=== PATIENT | female | born 1940 | race Caucasian/White ===

== ENCOUNTER 2019-03-01 11:36 | Emergency (ER) | payer MEDICARE, OTHER ==
[~2019-03-01] VITALS: Ht 162.6 cm; Wt 97.5 kg
[~2019-03-01 11:36] MED LIST: ALBU90OI INH; AMLO5 PO; AREDS; ASPI81CH PO; CYAN100 PO; Cleocin HCl150 MG PO; ESOM20; FISH1000 PO; FLUC200 PO; FLUT110OIA INH; Flomax0.4 MG PO; HYDACE5 PO; HYDR1TAB94 PO; LEVFLO500 PO; LISI5 PO; LUTEIN20 MG PO; METO50ER PO; METPRE4DP PO; MULVIT; OXYB5 PO; RANI150; Sudogest30 MG PO; TOCO400; TRAM50 PO; TRIHYD253A PO; Ventolin/Prove6.7 GM INH
[2019-03-01] MEDS ORDERED: Monodox100 MG PO (12:13)
[2019-03-01] MEDS ORDERED: Flonase 0.05% N16 GM (12:13)
== END 2019-03-01 12:19 | disposition home or self-care (01) ==
LOC: ER 11:36
DX: J32.9 Chronic sinusitis, unspecified (principal); Z88.0 Allergy status to penicillin; Z88.8 Allergy status to other drugs, medicaments and biological substances; Z91.048 Other nonmedicinal substance allergy status; Z79.82 Long term (current) use of aspirin; Z79.899 Other long term (current) drug therapy; J45.909 Unspecified asthma, uncomplicated

== ENCOUNTER 2019-07-02 12:36 | Emergency (ER) | payer MEDICARE, OTHER ==
[~2019-07-02] VITALS: Ht 162.6 cm; Wt 99.8 kg
[~2019-07-02 12:36] MED LIST changes: +CIPR500 PO; +Flonase 0.05% N16 GM; +Monodox100 MG PO; +Zofran4 MG PO
[2019-07-02 13:07] LABS: BASOPHILS ABSOLUTE AUTO 0.08 K/mm3 (0.00-0.23); BASOPHILS PERCENT AUTO 1 % (0-2); EOSINOPHILS ABSOLUTE AUTO 0.19 K/mm3 (0.00-0.68); EOSINOPHILS PERCENT AUTO 2 % (0-6); Hematocrit 44.3 % (33.0-51.0); Hemoglobin 14.2 g/dL (11.5-16.0); IMMATURE GRAN ABSOLUTE AUTO 0.05 K/mm3 (0.00-0.10); IMMATURE GRAN PERCENT AUTO 1 % (0-1); LYMPHOCYTES ABSOLUTE AUTO 3.48 K/mm3 (0.84-5.20); LYMPHOCYTES PERCENT AUTO 35 % (21-46); MONOCYTES ABSOLUTE AUTO 0.93 K/mm3 (0.16-1.47); MONOCYTES PERCENT AUTO 10 % (4-13); Mean Corpuscular HGB 30.3 pg (26.0-34.0); Mean Corpuscular HGB Conc 32.1 g/dL (31.5-36.5); Mean Corpuscular Volume 95 fL (80-100); Mean Platelet Volume 10.9 fL (9.1-12.4); NEUTROPHILS PERCENT AUTO 52 % (41-73); Platelet Count 257 K/mm3 (150-400); RDW Coefficient Variation 13.9 % (11.7-14.2); RDW Standard Deviation 48.2 fL (35.1-46.3); Red Blood Cell Count 4.68 M/mm3 (3.80-5.20); White Blood Cell Count 9.83 K/mm3 (4.00-11.30)
[2019-07-02 13:27] LABS: Alanine Aminotransfer (ALT/SGP 20 U/L (12-78); Albumin, Blood 3.3 g/dL (3.4-5.0); Albumin/Globulin Ratio 0.8 (0.8-1.8); Alk Phos 124 U/L (50-136); Anion Gap 4 mmol/L (6-16); Aspartate Aminotrans (AST/SGOT 14 U/L (12-37); Bilirubin, Total 0.3 mg/dL (0.1-1.0); Blood Urea Nitrogen 19 mg/dL (8-24); Bun/Creatinine Ratio 26.9 (12.0-20.0); CO2, Blood 27 mmol/L (21-32); Calcium, Blood 9.3 mg/dL (8.5-10.1); Chloride, Blood 108 mmol/L (98-108); Creatinine, Blood 0.71 mg/dL (0.40-1.00); Free Thyroxine 0.95 ng/dL (0.70-1.60); Globulin, Blood 4.2 g/dL (2.2-4.0); Glomerular Filtration Rate >60 (60-); Glucose, Blood 99 mg/dL (70-99); Potassium, Blood 3.9 mmol/L (3.5-5.5); Sodium, Blood 139 mmol/L (136-145); Total Protein, Blood 7.5 g/dL (6.4-8.2); Troponin I <0.015 ng/mL (0.000-0.040)
[2019-07-02 13:39] LABS: Source, Urine Clean Catch
[2019-07-02 13:54] LABS: Bilirubin, Urine Neg (Neg); Blood, Urine 1+ (Neg); Glucose Qualitative, Urine Neg (Neg); Ketones, Urine Neg (Neg); Leukocyte Esterase, Urine 3+ (Neg); Nitrite, Urine Neg (Neg); Protein, Urine 1+ (Neg); Urobilinogen, Urine 1+ (Normal)
[2019-07-02 14:06] LABS: Appearance, Urine Hazy (Clear); Color, Urine Yellow (P-Yellow)
[2019-07-02] MEDS ORDERED: ASCO500 PO (14:51)
[2019-07-02] MEDS ORDERED: TOCO1000 PO (14:51)
[2019-07-02] MEDS ORDERED: THERA1 EACH PO (14:52)
[2019-07-02] MEDS ORDERED: CALCIUM + D SO1 EACH PO (14:52)
[2019-07-02] MEDS ORDERED: LOSA25 PO (14:53)
[2019-07-02] MEDS ORDERED: Dyazide 37.5-21 EACH PO (14:53)
[2019-07-02] MEDS ORDERED: Vitamin B Comple1 EA PO (14:54)
[2019-07-02] MEDS ORDERED: BIOTIN5000 MCG PO (14:54)
[2019-07-02] MEDS ORDERED: TRAM50 PO (14:55)
[2019-07-02] MEDS ORDERED: OMEP20ER PO (14:55)
[2019-07-02 15:05] LABS: Red Blood Cells, Urine 0-2 /hpf (0-2); Squamous Epithelial Cells Many /hpf (Few)
[2019-07-02 15:06] LABS: Bacteria Many /hpf
== END 2019-07-02 17:03 | disposition home or self-care (01) ==
LOC: ER 12:36
PROVIDERS: Physician Assistant
DX: R00.1 Bradycardia, unspecified (principal); Z88.0 Allergy status to penicillin
CPT/HCPCS: 36415; 71046; 80053; 81001; 84439; 84443; 84484; 85025; 87086; 93005; 93010; 99284-25

== ENCOUNTER 2019-08-13 10:16 | Day surgery (SDC) | payer MEDICARE, OTHER ==
[~2019-08-13] VITALS: Ht 165.1 cm; Wt 101.0 kg
[~2019-08-13 10:16] MED LIST changes: +ASCO500 PO; +BIOTIN5000 MCG PO; +CALCIUM + D SO1 EACH PO; +Dyazide 37.5-21 EACH PO; +LOSA25 PO; +OMEP20ER PO; +THERA1 EACH PO; +TOCO1000 PO; +Vitamin B Comple1 EA PO
--- NOTE | 2019-08-13 18:24 | NUR ---
DAY SHIFT SUMMARY-Arrived to floor from [facility] s/p Pacemaker placement around 1615. Postop vital signs performed. C/O "mild" ache to L shoulder, but tolerable. Shoulder is in a sling, site is covered with dressing D&I. Patient oriented to room, call light, and phone. Family at bedside. 0-Finished dinner and up to BRP with 1 person assist. Family has gone home. Patient denies any increase in pain, states she's "right handed" and is able to use that hand to hold onto RN for assistance. Vital signs have remained stable.
--- NOTE | 2019-08-13 23:42 | NUR ---
ASSUMED CARE OF PATIENT AT APPROXIMATELY 1900 FROM LES [facility] RN. PATIENT ALERT AND ORIENTED X4; LEFT ARM IN SLING; S/P PACEMAKER; SURGICAL DRESSING HAS SMALL AMOUT OF DRAINAGE NOTED. PATIENT REPORTS SITE IS TENDER; ICE APPLIED AND MEDICATED PER EMAR FOR PAIN. DR. SHANKS CALLED FOR AN [facility] AFTER 2199. PATIENT CALLED STAFF TO ROOM TO REPORT HEARTBURN AND PAIN; PATIENT REPORTS SHE NORMALLY TAKES PRILOSEC AND TUMS OR ROLAIDS DAILY AFTER HAVING 6X HERNIA SUGERIES. DR. SHANKS CALLED AT 2226; ORDERS RECIEVED. 100% PACED ON TELE; OXYGEN SATURATION ABOVE 90% ON ROOM AIR. PATIENT DENIES NUMBNESS, TINGLING, DIZZINESS AND NAUSEA. PIV S/L. PATIENT CURRENTLY RESTING IN BED; CALL LIGHT IN REACH; BED IN LOWEST POSISTION; BED ALARM ON; WILL CONTINUE TO MONITOR AND ASSESS UNTIL END OF SHIFT.
--- NOTE | 2019-08-14 11:20 | NUR ---
PT LAYING IN BED AWAKE A/OX3, PLEASANT AND COOPERATIVE [facility] C[facility], FOLLOWS COMMANDS WELL, HAS ARM SLING IN PLACE, UNDERSTANDS WHY SHE NEEDS TO WEAR IT, HAS ICE PACK IN PLACE, THIS WAS CHANGED FOR A FRESH ICE PACK, SHE REPORTS IT HELPS, LUNGS ARE CLEAR A BIT DIM IN THE BASES, RESP EVEN AND UNLABORED, IS ON R/A, HRR, TELE IN PLACE RUNNING 100% PACED RHYTHM, SHE STATES SHE FEELS BETTER, WAS VERY WEAK AND SOB, THAT IS RESOLVED, NO EDEMA NOTED, PPP+2, CAP REFILL <3SEC, VS STABLE, AFEBRILE, IV SITE IS CLEAR AND PATENT, TO LEFT AC, BTX4, ABD FLAT SOFT NONTENDER, VOIDS WITHOUT DIFF, SKIN C/W/D EXCEPT FOR SURGICAL WOUND TO JOURDAN GARCIA PERLA, CALL LIGHT IN REACH.
--- NOTE | 2019-08-14 11:55 | NUR ---
PT HAS BEEN DISCHARGED TO HOME, SHE HAS HER ARM SLING IN PLACE, WAS GIVEN AN EXTRA ICE BAG. WENT OVER INSTRUCTIONS AND FOLLOW UP APPT. NO MEDICATION CHANGES. SHE VERBALIZES UNDERSTANDING OF INSTRUCTIONS, SHE HAS DR. GUTIERREZ PRINTED INSTRUCTIONS FOR PACER CARE. IV REMOVED INTACT. LEFT VIA WHEELCHAIR WITH STRANNER AND FAMILY IN ATTENDENCE WITH ALL HER BELONGINGS.
== END 2019-08-14 10:55 | disposition home or self-care (01) ==
LOC: MHTC 10:16 → PCU 16:48 → MHTC 08-14 10:55
DX: I49.5 Sick sinus syndrome (principal); I11.9 Hypertensive heart disease without heart failure; E66.01 Morbid (severe) obesity due to excess calories; E78.5 Hyperlipidemia, unspecified; J45.909 Unspecified asthma, uncomplicated; Z79.82 Long term (current) use of aspirin; Z79.899 Other long term (current) drug therapy; Z88.1 Allergy status to other antibiotic agents; Z88.8 Allergy status to other drugs, medicaments and biological substances
CPT/HCPCS: 33208; 71045; 71046; 96374; 99152; 99153; A9270; A9270-GY; C1785; C1898; G0378; J1644; J2250; J3010; J3370; J7040; J7050

== ENCOUNTER → 2020-12-14 | Outpatient (CLI) | payer MEDICARE, OTHER ==
[~2020-12-14] MED LIST changes: +DYAZIDE 37.5-21 EACH PO; +Doxycycline Mo100 M1 PO; +FURO40 PO; +FUROSEMIDE40 MG PO; +GUAI600T33 PO; +KLOR-CON 1010 ME1 PO; +LEVAQUIN750 MG PO; +METFORMIN HCL500 M2 PO; +MULVITA PO; +NITR100CA PO; +POTA10T PO; -THERA1 EACH PO; +VISBIOME 112.51 EACH PO; +WARF3 PO; +WARF6 PO; +XARELTO20 M1 PO
== END | disposition home or self-care (01) ==
LOC: LAB 16:31 → LAB SHORT 16:31
DX: D48.5 Neoplasm of uncertain behavior of skin (principal)
CPT/HCPCS: 88305

== ENCOUNTER 2021-02-09 08:01 | Inpatient (IN) | payer MEDICARE, OTHER ==
[~2021-02-09] VITALS: Ht 162.6 cm; Wt 95.1 kg
[~2021-02-09 08:01] MED LIST changes: -DYAZIDE 37.5-21 EACH PO; -Doxycycline Mo100 M1 PO; -FURO40 PO; -FUROSEMIDE40 MG PO; -GUAI600T33 PO; -KLOR-CON 1010 ME1 PO; -LEVAQUIN750 MG PO; -METFORMIN HCL500 M2 PO; -NITR100CA PO; -POTA10T PO; -VISBIOME 112.51 EACH PO; -WARF3 PO; -WARF6 PO; -XARELTO20 M1 PO
[2021-02-09] MEDS ORDERED: Doxycycline Mo100 M1 PO (08:24)
[2021-02-09 09:20] LABS: BASOPHILS ABSOLUTE AUTO 0.01 K/mm3 (0.00-0.23); BASOPHILS PERCENT AUTO 0 % (0-2); EOSINOPHILS PERCENT AUTO 0 % (0-6); Hematocrit 47.3 % (33.0-51.0); Hemoglobin 15.2 g/dL (11.5-16.0); IMMATURE GRAN ABSOLUTE AUTO 0.04 K/mm3 (0.00-0.10); IMMATURE GRAN PERCENT AUTO 1 % (0-1); LYMPHOCYTES PERCENT AUTO 16 % (21-46); MONOCYTES ABSOLUTE AUTO 0.36 K/mm3 (0.16-1.47); MONOCYTES PERCENT AUTO 7 % (4-13); Mean Corpuscular HGB 31.5 pg (26.0-34.0); Mean Corpuscular HGB Conc 32.1 g/dL (31.5-36.5); Mean Corpuscular Volume 98 fL (80-100); Mean Platelet Volume 10.7 fL (9.1-12.4); NEUTROPHILS ABSOLUTE AUTO 3.96 K/mm3 (1.96-9.15); NEUTROPHILS PERCENT AUTO 77 % (41-73); Platelet Count 113 K/mm3 (150-400); RDW Coefficient Variation 15.3 % (11.7-14.2); RDW Standard Deviation 55.4 fL (35.1-46.3); Red Blood Cell Count 4.83 M/mm3 (3.80-5.20); White Blood Cell Count 5.17 K/mm3 (4.00-11.30)
[2021-02-09 09:32] LABS: International Normalized Ratio 3.04; Prothrombin Time Results 30.5 Sec (9.7-11.5)
[2021-02-09 09:41] LABS: Alanine Aminotransfer (ALT/SGP 20 U/L (12-78); Albumin, Blood 2.8 g/dL (3.4-5.0); Albumin/Globulin Ratio 0.7 (0.8-1.8); Alk Phos 88 U/L (50-136); Anion Gap 11 mmol/L (6-16); Aspartate Aminotrans (AST/SGOT 36 U/L (12-37); Bilirubin, Total 0.6 mg/dL (0.1-1.0); Blood Urea Nitrogen 15 mg/dL (8-24); Bun/Creatinine Ratio 23.8 (12.0-20.0); CO2, Blood 22 mmol/L (21-32); Calcium, Blood 8.5 mg/dL (8.5-10.1); Chloride, Blood 108 mmol/L (98-108); Creatinine, Blood 0.63 mg/dL (0.40-1.00); Glomerular Filtration Rate >60 (60-); Glucose, Blood 118 mg/dL (70-99); Potassium, Blood 4.3 mmol/L (3.5-5.5); Sodium, Blood 141 mmol/L (136-145); Total Protein, Blood 6.8 g/dL (6.4-8.2); Troponin I <0.015 ng/mL (0.000-0.040)
[2021-02-09] MEDS ORDERED: METO50ER PO (11:36)
[2021-02-09] MEDS ORDERED: KLOR-CON 1010 ME1 PO (11:36)
[2021-02-09] MEDS ORDERED: FUROSEMIDE40 MG PO (11:36)
[2021-02-09] MEDS ORDERED: DYAZIDE 37.5-21 EACH PO (11:37)
[2021-02-09] MEDS ORDERED: WARF6 PO (16:59)
[2021-02-09] MEDS ORDERED: WARF3 PO (17:01)
--- NOTE | 2021-02-09 17:08 | NUR ---
SUMMARY PT ADMITTED FROM THE ER FOR COVID AND PNEUMONIA, PT ALERT AND ORIENTED, ABLE TO STAND AND TRANSFER SELF FROM RNEY TO BED WITH MIN ASSIST, PT COUGHING UP THICK HINKLE SPUTUM, PT REPORTS SOB SLIGHTLY BETTER, PT REMAINS ON 5L NC, ORIENTED PT TO ROOM AND CALL SYSTEM, PT REMAINS IN AFIB, TELE CALLED ABOUT HEART RATE 120-140S, CALL TO DR LONG, ORDERS OBTAINED, MEDS GIVEN, PT DENIES ANY CHEST PAIN OR DIZZINESS, WILL CONT TO MONITOR
[2021-02-09 22:35] LABS: Source, Urine Clean Catch
[2021-02-09 22:45] LABS: Bilirubin, Urine Neg (Neg); Blood, Urine 1+ (Neg); Glucose Qualitative, Urine Neg (Neg); Ketones, Urine 3+ (Neg); Leukocyte Esterase, Urine 1+ (Neg); Nitrite, Urine Neg (Neg); Protein, Urine 4+ (Neg); Specific Gravity, Urine 1.025 (1.003-1.022); Urobilinogen, Urine NORM (Normal)
[2021-02-09 22:53] LABS: Appearance, Urine Hazy (Clear); Color, Urine Yellow (P-Yellow)
[2021-02-09 22:54] LABS: Amorphous Light (0-Heavy); Bacteria Mod /hpf; Hyaline Casts 0-2 /lpf (0-2); Mucus Light (0-Heavy); Red Blood Cells, Urine Rare /hpf (0-2); Squamous Epithelial Cells Many /hpf (Few)
[2021-02-10 04:43] LABS: BASOPHILS ABSOLUTE AUTO 0.01 K/mm3 (0.00-0.23); BASOPHILS PERCENT AUTO 0 % (0-2); EOSINOPHILS PERCENT AUTO 0 % (0-6); Hematocrit 47.1 % (33.0-51.0); Hemoglobin 15.3 g/dL (11.5-16.0); IMMATURE GRAN ABSOLUTE AUTO 0.04 K/mm3 (0.00-0.10); IMMATURE GRAN PERCENT AUTO 1 % (0-1); LYMPHOCYTES ABSOLUTE AUTO 0.72 K/mm3 (0.84-5.20); LYMPHOCYTES PERCENT AUTO 15 % (21-46); MONOCYTES ABSOLUTE AUTO 0.38 K/mm3 (0.16-1.47); MONOCYTES PERCENT AUTO 8 % (4-13); Mean Corpuscular HGB 31.9 pg (26.0-34.0); Mean Corpuscular HGB Conc 32.5 g/dL (31.5-36.5); Mean Corpuscular Volume 98 fL (80-100); Mean Platelet Volume 10.7 fL (9.1-12.4); NEUTROPHILS ABSOLUTE AUTO 3.64 K/mm3 (1.96-9.15); NEUTROPHILS PERCENT AUTO 76 % (41-73); Platelet Count 162 K/mm3 (150-400); RDW Coefficient Variation 15.2 % (11.7-14.2); RDW Standard Deviation 55.4 fL (35.1-46.3); Red Blood Cell Count 4.79 M/mm3 (3.80-5.20); White Blood Cell Count 4.79 K/mm3 (4.00-11.30)
[2021-02-10 05:07] LABS: Anion Gap 8 mmol/L (6-16); Blood Urea Nitrogen 16 mg/dL (8-24); CO2, Blood 24 mmol/L (21-32); Calcium, Blood 8.6 mg/dL (8.5-10.1); Chloride, Blood 108 mmol/L (98-108); Creatinine, Blood 0.62 mg/dL (0.40-1.00); Glomerular Filtration Rate >60 (60-); Glucose, Blood 154 mg/dL (70-99); Magnesium, Blood 1.7 mg/dL (1.6-2.4); Sodium, Blood 140 mmol/L (136-145)
--- NOTE | 2021-02-10 08:03 | NUR ---
ELMER DIDN'T GET MUCH REST OVERNIGHT SHE WOULD LIE DOWN AND THEN FEEL NAUSEATED AND BEGIN SPITTING UP BLACKISH BROWN SPUTUM. LOOKS LIKE COFFEE GROUNDS. SHE STATES THAT SHE HAS HAD THIS PROBLEM FOR APPROXIMATELY 10 DAYS. ELMER IS UP INDEP TO THE BSC WITH NO COMPLAINTS OF PAIN OR DISCOMFORT. 02 NEEDS INCREASED FROM 5L NASAL CANNULA TO 8 LITERS HIGH FLOW OVERNIGHT.
--- NOTE | 2021-02-10 10:37 | NUR ---
PT SUSTAINING HR OF 140'S THIS AM, PRN IV LOPRESSOR WAS GIVEN PER ORDERS. PCU CHILD WELFARE ASSISTANT CALLED SHORTLY LATER STATING PT IS NOW SUSTAINING IN THE 170'S. LUKE WAS INFORMED OF PT HR WELL THE NEED TO INCREASE HER O2 FLOW TO 11 L/MIN TO MAINTAIN O2 SATURATIONS AT 90-91%. LUKE STATED HE WOULD COME UP TO GET A VISUAL OF THE PT AND MAKE CHANGES HE SEES FIT.
--- NOTE | 2021-02-10 18:58 | NUR ---
SHIFT SUMMARY PT WAS ON 8 L/MIN HIGH FLOW NC AT BEGINNING OF SHIFT. PT BEGAN SATING INTO THE 80'S, O2 WAS INCREASED TO 11 L/MIN. RT AND HOSPITALIST DISCUSSED PT OPTIONS AND DECIDED TO PLACE PT ON AIRVO. AIRVO SETTINGS WERE PLACED @ 60% FiO2 AND 45 L/MIN. BY THE END OF SHIFT PT WAS INCREASED TO FiO2 OF 75% TO KEEP O2 SATS ABOVE 90%. PT HR WAS NOT WELL CONTROLED T/O SHIFT. ROTARY SOIL STABILIZER OPERATOR REPORTS HR AVERAGING THE 130'S T/O SHIFT AND REACHING 170'S @ TIMES. IV METOPROLOL GIVEN X3 WELL DOSE OF PO METOPROLOL XL PER HOSPITALIST T/O SHIFT. PT STILL SUSTAINING, LAST DOSE GIVEN AT APPROX 1820. CHARGE NURSES AWARE OF HR, ONCOMING NURSE NOTIFIED OF HR AND INCREASE IN O2 THIS SHIFT. PT LIKELY NEEDING TO BE TRANSFERED TO A HIGHER LEVEL OF CARE. PT DENIES ANY SOB, CHEST PAIN, OR DISCOMFORT T/O SHIFT. ON CONT PULSE OX. INDEPENDENT TO BSC. PT IS CURRENTLY RESTING IN BED WITH CALL LIGHT WITHIN REACH. CALLS APPROPRIATELY.
--- NOTE | 2021-02-10 19:33 | NUR ---
Spoke with Dr. Handley regarding patient's drastically increasing 02 needs. Was on 3L cannula last evening, 8L high flow this morning and is currently on AIRVO at 75% Fi02 and 45 liters. Also, tele has sustaianed 140's to 170 all day despite 3 doses of IV Lopressor and one dose po metoprolol. Patient is to be transferred to ICU 12 STAT per new order.
--- NOTE | 2021-02-10 19:46 | NUR ---
REPORT TO NAHID HOOKER IN ICU. QUESTIONS ANSWERED. WILL BE TRANSFERRING NOW TO ICU 12
--- NOTE | 2021-02-11 | NUR ---
PT TO ICU 12 VIA HOSPITAL BED WITH MEDICAL FLOOR RN AND HEAD OF PRECISION TARGETING, PT ON 15L NRB, PLACED ON AIRVO UPON ARRIVAL. PT ALERT AND ORIENTED x4, DENIES SOB, O2 SATURATIONS> 90% ON 55L AND FIO2 82%, CRACKLES TO BASES OF LUNGS. MONITOR SHOWS AFIB WITH HR 120'S-150'S, NEW ORDER FOR CARDIZEM GTT. PT REPORTS NAUSEA, MEDICATED FOR 4MG ZOFRAN. PT SBA TO BSC. CONFIRMED CODE STATUS WITH PT, PT STS SHE DOES WANT CPR AND INTUBATION IF NECESSARY. PT REPORTS UNDERSTANDING OF MECHANICAL VENTILATION, STS SHE WAS ON A VENTILATOR DURING A PROLONGED HOSPITAL STAY FOR HERNIA REPAIR. AFTER ARRIVAL PT HAD BREIF PERIODS OF OXYGEN DESATURATIONS TO 82-85%, CALL PLACED TO DR ANNA, NEW ORDER FOR CPAP/BIPAP. PT PLACED ON BIPAP, SEE RT ASSESSMENTS, PT TOLERATING WELL. PT CONTINUES TO REPORT NAUSEA, CALL PLACED TO DR ANNA, SEE NEW ORDER FOR PHENERGRAN.
--- NOTE | 2021-02-11 00:30 | NUR ---
AGITATION TO PTS ROOM R/T BIPAP ALARM AND INCREASED HR. PT RESTLESS AND FIGDETING IN BED, ATTEMPTING TO GET OUT OF BED, NOT FOLLOWING COMMANDS, NOT REDIRECTABLE. PTS HR SUSTAINED 160'S-180'S, OXYGEN SATURATIONS 50'S. CALL PLACED AND DR JOSE TO ROOM, 0.5mg ATIVAN ADMINISTERED WITH NO CHANGES. PLAN FOR RSI.
--- NOTE | 2021-02-11 02:00 | NUR ---
INTUBATION PT MEDICATED WITH 20 ETOMIDATE AND 200 SUCCINYLCHOLINE, PT INTUBATED WITH 7.5 ETT, 26 @ THE TEETH BY DR CENTENO @ 0048, OGT PLACED AND CHEST XRAY COMPLETED. BRIGHT RED BLOOD SUCTIONED FROM ETT. BROWN, COFFEE GROUND OUTPUT FROM OGT.
[2021-02-11 03:01] LABS: Source, Urine Catheter
[2021-02-11 03:03] LABS: Bilirubin, Urine Neg (Neg); Blood, Urine 2+ (Neg); Glucose Qualitative, Urine Neg (Neg); Ketones, Urine Neg (Neg); Leukocyte Esterase, Urine Neg (Neg); Nitrite, Urine Neg (Neg); Protein, Urine 3+ (Neg); Urobilinogen, Urine NORM (Normal)
[2021-02-11 03:04] LABS: Appearance, Urine Clear (Clear); Color, Urine Yellow (P-Yellow)
[2021-02-11 03:22] LABS: Amorphous Light (0-Heavy); Bacteria Rare /hpf; Red Blood Cells, Urine 0-2 /hpf (0-2); Squamous Epithelial Cells Not Seen /hpf (Few); White Blood Cells, Urine Not Seen /hpf (0-5)
--- NOTE | 2021-02-11 04:30 | NUR ---
HYPOTENSION CALL PLACED TO DR BELLA REGARDING PTS BLOOD PRESSURE AND VENOUS ACCESS. NEW ORDER FOR 500ml BOLUS, 12.5 ALBUMIN AND NEOSYNEPHRINE TO MAINTAIN MAPS> 60.
[2021-02-11 05:43] LABS: BASOPHILS ABSOLUTE AUTO 0.02 K/mm3 (0.00-0.23); BASOPHILS PERCENT AUTO 0 % (0-2); EOSINOPHILS PERCENT AUTO 0 % (0-6); Hemoglobin 13.3 g/dL (11.5-16.0); IMMATURE GRAN ABSOLUTE AUTO 0.07 K/mm3 (0.00-0.10); IMMATURE GRAN PERCENT AUTO 1 % (0-1); LYMPHOCYTES ABSOLUTE AUTO 0.88 K/mm3 (0.84-5.20); LYMPHOCYTES PERCENT AUTO 9 % (21-46); MONOCYTES ABSOLUTE AUTO 0.87 K/mm3 (0.16-1.47); MONOCYTES PERCENT AUTO 9 % (4-13); Mean Corpuscular HGB 31.3 pg (26.0-34.0); Mean Corpuscular HGB Conc 31.7 g/dL (31.5-36.5); Mean Corpuscular Volume 99 fL (80-100); Mean Platelet Volume 10.6 fL (9.1-12.4); NEUTROPHILS ABSOLUTE AUTO 8.01 K/mm3 (1.96-9.15); NEUTROPHILS PERCENT AUTO 81 % (41-73); NRBC ABSOLUTE 0.02 K/mm3 (0.00-0.02); NRBC Auto 0.2 /100 WBC (0.0-0.2); Platelet Count 215 K/mm3 (150-400); RDW Coefficient Variation 15.3 % (11.7-14.2); RDW Standard Deviation 55.8 fL (35.1-46.3); Red Blood Cell Count 4.25 M/mm3 (3.80-5.20); White Blood Cell Count 9.85 K/mm3 (4.00-11.30)
[2021-02-11 06:10] LABS: Albumin, Blood 2.3 g/dL (3.4-5.0); Anion Gap 6 mmol/L (6-16); Blood Urea Nitrogen 24 mg/dL (8-24); Bun/Creatinine Ratio 28.6 (12.0-20.0); CO2, Blood 26 mmol/L (21-32); Chloride, Blood 110 mmol/L (98-108); Creatinine, Blood 0.84 mg/dL (0.40-1.00); Glomerular Filtration Rate >60 (60-); Glucose, Blood 142 mg/dL (70-99); Magnesium, Blood 1.7 mg/dL (1.6-2.4); Phosphorus, Blood 3.5 mg/dL (2.5-4.9); Sodium, Blood 142 mmol/L (136-145)
--- NOTE | 2021-02-11 06:43 | NUR ---
SHIFT SUMMARY SEE PREVIOUS NOTES. PT REMAINS INTUBATED AND SEDATED. VENT SET TO AC 20/430 PEEP 10 FIO2 75%. PROPOFOL INF @ 25mcg/kg/min. MONITOR SHOWS AFIB WITH HR 80'S-105, NEOSYNEPHRINE INF @ 30mcg/min TO MAINTAIN MAPS> 60. OGT REMAINS IN PLACE WITH BROWN COFFEE GROUND OUTPUT. GUPTA PLACED THIS SHIFT WITH LITTLE OUTPUT.
--- NOTE | 2021-02-11 08:10 | NUR ---
INITIAL ASSESSMENT PATIENT INTUBATED AND SEDATED. PATIENT RESPONDING TO NOXIOUS STIMULI. PATIENT AFEBRILE. NO SIGNS OF PAIN NOTED. PATIENT ON AC 20, TV 450, PEEP 10 AND 65% FIO2. LUNGS CLEAR IN UPPER LOBES AND DIMINISHED IN LOWER LOBES. SMALL AMOUNT OF THIN, JUAN CARLOS BLOOD BEING SUCTIONED FROM ETT. PATIENT IN A. FIB, HR 70S TO LOW 100S. SBP 80S TO LOW 100S. CARDIZEM ON SB. MALICK SYNEPHRINE AT 30 MCG/ MINUTE. PATIENT HAS PACEMAKER. SCDS PLACED. OG TO LIS. SCANT AMOUNT OF COFFEE GROUND DRAINAGE NOTED. BS HYPOACTIVE. GUPTA DRAINING DARK YELLOW URINE. BRISA AREA/ GROIN FOLDS REDDENED. SKIN PALE AND FRAGILE. SCATTERED BRUISES NOTED. PROPOFOL AT 25 MCG/ KG/ MINUTE, NS TKO. BED LOW. WILL CONTINUE TO MONITOR PATIENT FREQUENTLY THROUGHOUT SHIFT.
--- NOTE | 2021-02-11 09:30 | NUR ---
DR. BELLA UPDATED ON PATIENT CONDITION. INFORMED THAT PATIENT IS HAVING SMALL AMOUNTS OF JUAN CARLOS RED BLOOD FROM ETT. INFORMED THAT PATIENT HAVING SCANT COFFEE GROUND DRAINAGE FROM OG TUBE. INFORMED THAT PATIENT IS ON XARELTO. INFORMED THAT PATIENT ON MALICK-SYNEPHRINE FOR HYPOTENSION. INFORMED THAT CARDIZEM DRIP HAS BEEN ON SB SINCE AROUND 04OO PER COMPUTER SYSTEMS DESIGN ANALYST RN.
[2021-02-11 11:32] LABS: PCO2 Arterial 35.2 mmHg (35-45); PO2 Arterial 78.5 mmHg (80-100); pH Blood Arterial 7.44 (7.35-7.45)
--- NOTE | 2021-02-11 12:35 | NUR ---
PATIENT AFEBRILE. NO SIGNS OF PAIN. HR 70S TO LOW 100S. SBP 80S TO LOW 100S. PEEP DECREASED TO 8, FIO2 DOWN TO 60%. MALICK-SYNEPHRINE AT 10 MCG/ MINUTE. BLOOD SUGAR OF 147. NO OTHER ACUTE CHANGES TO NOTE ON AT THIS TIME. WILL CONTINUE TO MONITOR.
--- NOTE | 2021-02-11 14:30 | NUR ---
ECHOCARDIOGRAM COMPLETE
--- NOTE | 2021-02-11 16:36 | NUR ---
PATIENT AFEBRILE. NO SIGNS OF PAIN NOTED. PATIENT REMAINS ON AC 20, PEEP 8, TV 450 AND 60% FIO2. PATIENT REMAINS IN A. FIB. HR 70S TO 80S. SBP 90S TO LOW 100S. MALICK-SYNEPHRINE OFF. NO OTHER ACUTE CHANGES TO NOTE ON AT THIS TIME. WILL CONTINUE TO MONITOR.
--- NOTE | 2021-02-11 18:59 | NUR ---
SHIFT SUMMARY PATIENT REMAINED INTUBATED AND SEDATED. PATIENT REMAINED RESPONDING TO NOXIOUS STIMULI. PATIENT DID HAVE SHORT SEDATION VACATION THIS AM; PATIENT BECAME ANXIOUS BUT WAS FOLLOWING SOME SIMPLE COMMANDS. PATIENT HAD NO COMPLAINTS OF PAIN. VENT SETTINGS AC 20, TV 450, PEEP 10 AND 75% FIO2 WHEN CAME ON SHIFT. PEEP NOW DOWN TO 8 AND FIO2 AT 60%. ETT BLOODY SECRETIONS CHANGED FROM SMALL AMOUNT TO SCANT AMOUNT. PATIENT HAS REMAINED IN A. FIB, HR 70S TO LOW 100S. SBP 80S TO LOW 100S. PATIENT OCCASIONALLY V-PACED. MALICK-SYNEPHRINE TURNED TO OFF THIS SHIFT. CARDIZEM REMAINED OFF. PATIENT RECIEVED 2 DOSES OF DIGOXIN. NO BM THIS SHIFT. PATIENT REMAINED NPO EXCEPT FOR MEDS. GUPTA DRAINED 600 MLS OF DARK YELLOW COLORED URINE. NO CHANGE TO SKIN. PATIENT REPOSITIONED THROUGHOUT SHIFT. PATIENT RECEIVED 25 G ALBUMIN THIS SHIFT. PATIENT STARTED ON LEVAQUIN. NYSTATIN ORDERED THIS SHIFT FOR REDDENED GROIN FOLDS. BLOOD SUGARS 117 TO 147. PATIENT APPEARS COMFORTABLE AT THIS TIME. BED LOW, CALL LIGHT IN REACH. REPORT GIVEN TO ONCOMING MORTAR CARRIER NURSE.
--- NOTE | 2021-02-11 21:36 | NUR ---
ASSUMPTION OF CARE PT INTUBATED AND SEDATED, VENT SET TO AC 20/430 PEEP 8 FIO2 60%. PROPOFOL INFUSING @ 25mcg/kg/min, TITRATED TO 20mcg/kg/min TO BETTER ASSESS NEURO STATUS, PT WOKE UP FOLLOWED COMMANDS, ASSISTED WITH TURN, DENIED PAIN BUT SHOOK HEAD "YES" TO DISCOMFORT, PROPOFOL TITRATED BACK TO 25mcg/kg/min, PT APPEARS TO BE RESTING COMFORTABLY. NO SECRETIONS FROM ETT. MONITOR SHOWS AFIB WITH HR 60'S-90'S, BP STABLE. OGT IN PLACE, CLAMPED FOR MED ADMINISTRATION. GUPTA IN PLACE DRAINING DARK YELLOW URINE. CALL FROM PTS DAUGHTER, ARIN, UPDATED ON PTS STATUS.
[2021-02-12 05:05] LABS: BASOPHILS PERCENT AUTO 0 % (0-2); EOSINOPHILS PERCENT AUTO 0 % (0-6); Hematocrit 43.4 % (33.0-51.0); Hemoglobin 14.1 g/dL (11.5-16.0); IMMATURE GRAN ABSOLUTE AUTO 0.04 K/mm3 (0.00-0.10); IMMATURE GRAN PERCENT AUTO 1 % (0-1); LYMPHOCYTES PERCENT AUTO 11 % (21-46); MONOCYTES ABSOLUTE AUTO 0.58 K/mm3 (0.16-1.47); MONOCYTES PERCENT AUTO 8 % (4-13); Mean Corpuscular HGB 31.4 pg (26.0-34.0); Mean Corpuscular HGB Conc 32.5 g/dL (31.5-36.5); Mean Corpuscular Volume 97 fL (80-100); Mean Platelet Volume 10.8 fL (9.1-12.4); NEUTROPHILS ABSOLUTE AUTO 5.57 K/mm3 (1.96-9.15); NEUTROPHILS PERCENT AUTO 80 % (41-73); Platelet Count 178 K/mm3 (150-400); RDW Coefficient Variation 14.8 % (11.7-14.2); RDW Standard Deviation 53.8 fL (35.1-46.3); Red Blood Cell Count 4.49 M/mm3 (3.80-5.20); White Blood Cell Count 6.99 K/mm3 (4.00-11.30)
[2021-02-12 05:28] LABS: Alanine Aminotransfer (ALT/SGP 18 U/L (12-78); Albumin, Blood 2.1 g/dL (3.4-5.0); Albumin/Globulin Ratio 0.7 (0.8-1.8); Alk Phos 68 U/L (50-136); Anion Gap 7 mmol/L (6-16); Aspartate Aminotrans (AST/SGOT 39 U/L (12-37); Bilirubin, Total 0.7 mg/dL (0.1-1.0); Blood Urea Nitrogen 27 mg/dL (8-24); Bun/Creatinine Ratio 34.5 (12.0-20.0); CO2, Blood 26 mmol/L (21-32); Calcium, Blood 7.6 mg/dL (8.5-10.1); Chloride, Blood 110 mmol/L (98-108); Creatinine, Blood 0.78 mg/dL (0.40-1.00); Globulin, Blood 3.1 g/dL (2.2-4.0); Glomerular Filtration Rate >60 (60-); Glucose, Blood 136 mg/dL (70-99); Magnesium, Blood 1.6 mg/dL (1.6-2.4); Phosphorus, Blood 3.4 mg/dL (2.5-4.9); Potassium, Blood 4.2 mmol/L (3.5-5.5); Sodium, Blood 143 mmol/L (136-145); Total Protein, Blood 5.2 g/dL (6.4-8.2)
--- NOTE | 2021-02-12 06:17 | NUR ---
SHIFT SUMMARY NO ACUTE CHANGES THIS SHIFT, PT RESTED T/O NIGHT, VENT SET TO AC 20/430 PEEP 8 FIO2 40-50%, PT TOLERATES LEFT SIDE BETTER THAN RIGHT, MILD O2 DESATURATIONS WTIH TURNS TO 84-86% WITH QUICK RECOVERY. MONITOR SHOWS AFIB, FREQUENT PACER SPIKES NOTED ON BUCKLE STRAP PUNCHER, HR 50'S-60'S, BP STABLE. OGT REMAINS IN PLACE, GUPTA IN PLACE WITH GOOD URINE OUTPUT.
--- NOTE | 2021-02-12 10:36 | NUR ---
CARE ASSUMED ASSESSMENTS COMPLETED, PT SEDATED WITH PROPOFOL 25MCG, WAKES EASILY TO VERBAL STIMULI, FOLLOWS SIMPLE DIRECTIONS. INTUBATED, VENT SETTINGS AC 20, VT 430, PEEP 8, FIO2 50%, SPO2 >90%, RR 20. LS CLEAR IN UPPER LOBES FINE CRACKLES IN BASES, SMALL/MODERATE AMOUNT RED SPUTUM FROM ETT. HR 60'S AFLUTTER WITH INTERMITTENT PACING, BP HYPOTENSIVE WHEN LYING ON R SIDE, MAPS REMAIN >60, BP WNL WHEN ON BACK OR L SIDE. AM CARES AND REPOSITIONING COMPLETED, MEDS ADMINISTERED PER ORDERS. DR.'S BELLA AND ISTRATE IN TO SEE PATIENT, NEW ORDERS RECEIVED.
--- NOTE | 2021-02-12 19:37 | NUR ---
END OF SHIFT PT HAD AN UNEVENTFUL DAY, VENT SETTINGS AND PROPOFOL RATE UNCHANGED, PT TOLERATING SETTINGS WELL. PT REPOSITIONED T/O DAY, NO AGITATION, NO DESATS OR TACHYPNEA THIS SHIFT. LS HAVE CLEARED T/O DAY, RED SPUTUM PRODUCTION HAS SLOWED. HR REMAINS AFLUTTER, RATE CONTROLLED, BP STABLE. TUBE FEEDS INITIATED PER ORDERS, VITAL HP AT 25ML/HR, GOAL 30ML/HR. NO BM TODAY. URINE OUTPUT >30ML/HR, CONCENTRATED. NO SEDATION VACATION TODAY, PATIENT IS LIGHTLY SEDATED ON 25MCG PROPOFOL INFUSION, OPENS EYES AND FOLLOWS COMMANDS APPROPRIATELY, ASSISTS MINIMALLY WITH CARES. REPORT TO ONCOMING SHIFT.
--- NOTE | 2021-02-12 20:42 | NUR ---
ASSUMED CARE AT 1900 PT LYING IN BED INTUBATED WITH VENT SETTINGS AC 20, TV 430, PEEP 8, FIO2 40%; SPO2 >95%. PT RESPONSIVE TO VERBAL STIMULI AND FOLLOWS DIRECTIONS, BILATERAL HAND TITLE INSURANCE AGENT WEAK BUT EQUAL. HR 80-90'S; IRREGULAR. SBP 110-125, OCCATIONAL PACER SPIKES SHOWN. VHP INFUSING VIA OG AT 25ML/HR; PLAN TO INCREASE TO GOAL AT 2330; MINIMAL RESIDUALS NOTED. GUPTA IN PLACE AND DRAINING TO GRAVITY. PROPOFOL INFUSING AT 25MCG/KG/MIN. SEE SHIFT ASSESSMENT FOR FULL ASSESSMENT.
--- NOTE | 2021-02-12 22:24 | NUR ---
UPDATED FAMILY PT DAUGHTER CALLED AT 2109 AND WAS UPDATED. DAUGHTER SEEMED OVERWHELMED BUT THANKFUL FOR NURSING STAFF. DAUGHTER STATED THAT HER FATHER (PT ) HAS NOW BEEN TESTED POSITIVE FOR COVID WELL. WHEN PHONE CALL ENDED, DAUGHTER SLIGHTLY RELIEVED TO HEAR ABOUT PT TOLERATING VENT WELL AND HR UNDER CONTROL.
[2021-02-13 04:50] LABS: BASOPHILS ABSOLUTE AUTO 0.01 K/mm3 (0.00-0.23); BASOPHILS PERCENT AUTO 0 % (0-2); EOSINOPHILS PERCENT AUTO 0 % (0-6); Hematocrit 41.7 % (33.0-51.0); Hemoglobin 13.7 g/dL (11.5-16.0); IMMATURE GRAN ABSOLUTE AUTO 0.08 K/mm3 (0.00-0.10); IMMATURE GRAN PERCENT AUTO 1 % (0-1); LYMPHOCYTES ABSOLUTE AUTO 0.76 K/mm3 (0.84-5.20); LYMPHOCYTES PERCENT AUTO 8 % (21-46); MONOCYTES ABSOLUTE AUTO 0.81 K/mm3 (0.16-1.47); MONOCYTES PERCENT AUTO 8 % (4-13); Mean Corpuscular HGB 31.9 pg (26.0-34.0); Mean Corpuscular HGB Conc 32.9 g/dL (31.5-36.5); Mean Corpuscular Volume 97 fL (80-100); Mean Platelet Volume 10.9 fL (9.1-12.4); NEUTROPHILS ABSOLUTE AUTO 8.12 K/mm3 (1.96-9.15); NEUTROPHILS PERCENT AUTO 83 % (41-73); Platelet Count 213 K/mm3 (150-400); RDW Coefficient Variation 14.6 % (11.7-14.2); RDW Standard Deviation 52.6 fL (35.1-46.3); White Blood Cell Count 9.78 K/mm3 (4.00-11.30)
[2021-02-13 05:08] LABS: Alanine Aminotransfer (ALT/SGP 22 U/L (12-78); Albumin, Blood 2.8 g/dL (3.4-5.0); Alk Phos 65 U/L (50-136); Anion Gap 7 mmol/L (6-16); Aspartate Aminotrans (AST/SGOT 28 U/L (12-37); Bilirubin, Total 0.8 mg/dL (0.1-1.0); Blood Urea Nitrogen 32 mg/dL (8-24); Bun/Creatinine Ratio 41.6 (12.0-20.0); CO2, Blood 25 mmol/L (21-32); Calcium, Blood 8.3 mg/dL (8.5-10.1); Chloride, Blood 110 mmol/L (98-108); Creatinine, Blood 0.77 mg/dL (0.40-1.00); Globulin, Blood 2.8 g/dL (2.2-4.0); Glomerular Filtration Rate >60 (60-); Glucose, Blood 142 mg/dL (70-99); Magnesium, Blood 1.7 mg/dL (1.6-2.4); Potassium, Blood 4.2 mmol/L (3.5-5.5); Sodium, Blood 142 mmol/L (136-145); Total Protein, Blood 5.6 g/dL (6.4-8.2)
--- NOTE | 2021-02-13 06:40 | NUR ---
END OF SHIFT SUMMARY PT CONT TO BE INTUBATED WITH VENT SETTING SPON PS 7/5, FIO2 50%, PT ON SPON SINCE 0000; SMALL AMOUNT OF THICK SECREATIONS NOTED. PT MINIMALLY FOLLOWS DIRECTIONS AND ANSWERS YES/NO QUESTIONS; PROPOFOL INFUSING AT 25MCG/KG/MIN VIA POWERGLIDE TO IRIS. AFEBRILE. HR 70-80'S; IRREGULAR; OCCATIONAL PACER SPIKES NOTED. SBP 100-120; MAP >65. VHP INFUSING VIA OG AT 30ML/HR (GOAL) WITH 30ML WATER FLUSHES Q4HR. GUPTA PATENT AND DRAINING TO GRAVITY. WILL REPORT TO AM RN WHEN AVAILABLE.
--- NOTE | 2021-02-13 08:10 | NUR ---
ASSESSMENT- PT SEDATED WTIH PROPOFOL AT 40 MCG/KG/MIN. OPENS EYES TO NAME, ABLE TO NOD HEAD TO BRIEF QUESTIONS. DENIES PAIN. GABRIEL. ORALLY INTUBATED, TUBE SECURE. TOLERATING VENT SETTINGS PS 7 PEEP 5 WITH ADEQUATE TIDAL VOLUMES 275-340 CC. RESPIRATIONS UNLABORED, LUNGS CLEAR, DIMINISHED BIBASILAR WITH INSPIRATORY NOISE. APICAL IRREGULAR, AFIB. SBP STABLE. POWER GLIDE LEFT UPPER ARM DI, PIV LEFT HAND DI. NS TKO. ABDOMEN LARGE, SOFT. TUBE FEEDING VIA OGT WITH 5 CC RESIDUAL REPLACED, VITAL HIGH PROTEIN AT GOAL 30 CC/HR. UO VIA GUPTA. SKIN DIAPHORETIC, PALE. REPOSITIONED FOR COMFORT. BILATERAL WRIST RESTRAINTS FOR SAFETY, EXTUBATION RISK. ENHANCED PRECAUTIONS IN EFFECT.
--- NOTE | 2021-02-13 12:09 | NUR ---
PT'S DAUGHTER ARIN CALLED-UPDATED, QUESTIONS ANSWERED. PT WITH COPIOUS SECRETIONS, SUCTIONING DONE, NEED TO INCREASE FIO2 TO 55% TO MAINTAIN SATURATIONS. PROPOFOL AT 35 MCG/KG/MIN FOR SEDATION/VENT TOLERANCE. REPOSITIONED TO LEFT SIDE. LUNGS COARSE, DIMINISHED BIBASILAR.
--- NOTE | 2021-02-13 14:05 | NUR ---
DR. CASTELLANOS HERE-UPDATED. PARAMETERS FOR PRESSURE SUPPORT, TOLERATING SETTINGS NOW. REPOSITIONED, CALM. ABLE TO OPEN EYES.
--- NOTE | 2021-02-13 16:02 | NUR ---
TIDAL VOLUMES 290'S-CHANGED TO SETTING AC 22 TV 430 PEEP 5, ABLE TO DECREASE FI02 TO 50%. PROPOFOL DECREASED TO 30 MCG/KG/MIN, PT SEDATE, CALM. LUNGS CLEAR LESS SECRETIONS THAN EARLIER.
--- NOTE | 2021-02-13 18:51 | NUR ---
BLOOD SUGAR 250-UPDATE TO DR. CASTELLANOS. VSS. TOLERATING VENT. PROPOFOL AT 25 MCG/KG/MIN-ABLE TO OPEN EYES TO NAME. PIV AND POWER GLIDE INTACT. UO GOOD VIA GUPTA. AFEBRILE. TOLERATING TUBE FEEDING, NO BM. AFIB RATE 60-70'S
--- NOTE | 2021-02-13 19:15 | NUR ---
ASSUMED CARE OF PT, BEDSIDE REPORT RECEIVED. PT IS RESTING QUIETLY SEDATION IS PROPOFOL AT 25 MCG/KG/MIN, SHE IS NOTED TO BE BLINKING EYES HOWEVER TOLERATING VENTILATOR AT THIS TIME, SETTINGS ARE NOTED AC 20, TV 430, FIO2 50%, PEEP 5.0, SATS ARE MAINTAINING. PRESSURES MAINTAINING, PT IS NEAR 100% PACED AT THIS TIME AT 62 CURRENTLY, UNDERLYING RHYTHM NOTED INTERMITTENTLY AFLUTTER MOSTLY AFIB.
[2021-02-14 05:11] LABS: BASOPHILS ABSOLUTE AUTO 0.02 K/mm3 (0.00-0.23); BASOPHILS PERCENT AUTO 0 % (0-2); EOSINOPHILS ABSOLUTE AUTO 0.01 K/mm3 (0.00-0.68); EOSINOPHILS PERCENT AUTO 0 % (0-6); Hematocrit 44.8 % (33.0-51.0); Hemoglobin 14.6 g/dL (11.5-16.0); IMMATURE GRAN ABSOLUTE AUTO 0.11 K/mm3 (0.00-0.10); IMMATURE GRAN PERCENT AUTO 1 % (0-1); LYMPHOCYTES ABSOLUTE AUTO 0.86 K/mm3 (0.84-5.20); LYMPHOCYTES PERCENT AUTO 11 % (21-46); MONOCYTES ABSOLUTE AUTO 0.61 K/mm3 (0.16-1.47); MONOCYTES PERCENT AUTO 8 % (4-13); Mean Corpuscular HGB 31.3 pg (26.0-34.0); Mean Corpuscular HGB Conc 32.6 g/dL (31.5-36.5); Mean Corpuscular Volume 96 fL (80-100); Mean Platelet Volume 10.5 fL (9.1-12.4); NEUTROPHILS ABSOLUTE AUTO 6.29 K/mm3 (1.96-9.15); NEUTROPHILS PERCENT AUTO 80 % (41-73); Platelet Count 203 K/mm3 (150-400); RDW Coefficient Variation 14.6 % (11.7-14.2); RDW Standard Deviation 51.7 fL (35.1-46.3); Red Blood Cell Count 4.66 M/mm3 (3.80-5.20)
[2021-02-14 05:51] LABS: Alanine Aminotransfer (ALT/SGP 20 U/L (12-78); Albumin, Blood 2.5 g/dL (3.4-5.0); Albumin/Globulin Ratio 0.8 (0.8-1.8); Alk Phos 69 U/L (50-136); Anion Gap 7 mmol/L (6-16); Aspartate Aminotrans (AST/SGOT 16 U/L (12-37); Bilirubin, Total 0.7 mg/dL (0.1-1.0); Blood Urea Nitrogen 34 mg/dL (8-24); Bun/Creatinine Ratio 45.8 (12.0-20.0); CO2, Blood 28 mmol/L (21-32); Calcium, Blood 8.2 mg/dL (8.5-10.1); Chloride, Blood 108 mmol/L (98-108); Creatinine, Blood 0.74 mg/dL (0.40-1.00); Globulin, Blood 3.1 g/dL (2.2-4.0); Glomerular Filtration Rate >60 (60-); Glucose, Blood 153 mg/dL (70-99); Magnesium, Blood 1.8 mg/dL (1.6-2.4); Phosphorus, Blood 2.5 mg/dL (2.5-4.9); Potassium, Blood 3.6 mmol/L (3.5-5.5); Sodium, Blood 143 mmol/L (136-145); Total Protein, Blood 5.6 g/dL (6.4-8.2)
--- NOTE | 2021-02-14 07:50 | NUR ---
PT RESTS QUIETLY THROUGHOUT SHIFT, ROUSES EASILY TO VERBAL STIMULI WITH PROPOFOL AT 20 MCG/KG/MIN, FOLLOWS COMMANDS WELL ANSWERS YES/NO QUESTIONS, SEDATION VACATION THIS AM RESULTED IN MORE ALERTNESS AND PT ADMITTED TO THROAT PAIN R/T ETT. VENT SWITCHED TO SPONTANEOUS AT 0520 THIS AM, SATS MAINTAINING, TIDAL VOLUMES WERE NOTED TO DECRESE JUST PRIOR TO PT HANDOFF AND RT WAS CONTACTED TO PLACE PT BACK ON AC. PT HAD SHORT RUN OF V-TACH, OTHERWISE REMAINS INTERMITTENTLY AFIB/AFLUTTER AND PACED, PRESSURES MAINTAINED THROUGHOUT SHIFT. OG RESIDUALS OF LESS THAN 20 ML AT EACH ASSESSMENT. GOOD URINE OUTPUT.
--- NOTE | 2021-02-14 08:10 | NUR ---
INITIAL ASSESSMENT PATIENT INTUBATED AND SEDATED. PATIENT RESPONDING TO NOXIOUS STIMULI/ ORAL/ NURSING CARE. PATIENT AFEBRILE. NO SIGNS OF PAIN NOTED. PATIENT ON VENT SETTINGS AC 20, TV 430, PEEP 5 AND 50% FIO2. LUNGS COARSE THROUGHOUT. MODERATE AMOUNT OF THICK, BROWN/ RED SECRETIONS BEING SUCTIONED FROM ETT. PATIENT IN A. FLUTTER AND OCCASIONALLY V-PACED. HR 60S TO 70S. SBP 90S TO LOW 100S. SCDS IN PLACE. ABDOMEN MODERATELY DISTENDED, NORMOACTIVE BS NOTED. LAST BM ON 02/09. PRN MOM GIVEN. GUPTA DRAINING YELLOW COLORED URINE. SCATTERED BRUISES NOTED. BRISA AREA SLIGHTLY REDDENED- SCHEDULED POWDER BEING GIVEN. SKIN PALE AND FRAGILE. PATIENT BEING REPOSITIONED Q2H AND PRN. PROPOFOL INFUSING AT 20 MCG/ KG/ MINUTE, NS TKO. BED LOW, CALL LIGHT IN REACH. WILL CONTINUE TO MONITOR PATIENT FREQUENTLY THROUGHOUT SHIFT.
--- NOTE | 2021-02-14 09:00 | NUR ---
DR. CASTELLANOS UPDATED ON PATIENT STATUS. INFORMED THAT PATIENT HAD 9 BEAT RUN OF VTACH EARLY THIS MORNING ON CAMERA TECHNICIAN. INFORMED THAT PATIENT ON WEAN FOR 2 HOURS THIS AM BEFORE BEING PLACED BACK ON AC SETTINGS FOR DECREASED TIDAL VOLUMES. INFORMED THAT BUN INCREASED THIS AM. NO ORDERS RECEIVED AT THIS TIME.
--- NOTE | 2021-02-14 12:00 | NUR ---
PATIENT AFEBRILE. PATIENT FOLLOWING SIMPLE COMMANDS AND ANSWERING YES/ NO QUESTIONS WITH NODDING AND SHAKING OF HEAD. PATIENT COMMUNICATES THAT SHE IS NOT IN PAIN. HR 70S TO LOW 100S. SBP 120S TO 130S. PATIENT REMAINS ON SAME VENT SETTINGS. TF RESIDUAL OF 10 MLS OBTAINED AND REINSTILLED. BLOOD SUGAR OF 194. NO OTHER ACUTE CHANGES TO NOTE ON AT THIS TIME. WILL CONTINUE TO MONITOR.
--- NOTE | 2021-02-14 16:00 | NUR ---
PATIENT AFEBRILE. HR 80S TO 90S. SBP 120S TO 140S. VENT AC 12. NO OTHER ACUTE CHANGES TO NOTE ON AT THIS TIME. WILL CONTINUE TO MONITOR.
--- NOTE | 2021-02-14 19:03 | NUR ---
SHIFT SUMMARY PATIENT REMAINED INTUBATED. PATIENT ON SEDATION VACATION FROM DIRECTOR ORACLE DATABASE UNTIL AROUND 1400 WHEN PATIENT COMMUNICATED SHE WAS READY TO TAKE A NAP. PATIENT REMAINED FOLLOWING COMMANDS AND COMMUNICATING WITH NODDING AND SHAKING HEAD. PATIENT REMAINED AFEBRILE. PATIENT DENIED PAIN THROUGHOUT SHIFT. PATIENT ON AC 20, TV 430, PEEP 5, AND 50% FIO2 HALF OF THE DAY AND THEN DR. CASTELLANOS DECREASED RATE FROM 20 TO 12. PATIENT CONTINUED TO HAVE MODERATE AMOUNT OF THICK, RED/ BROWN SPUTUM FROM ETT. LUNGS REMAINED COARSE. PATIENT REMAINED IN A. FLUTTER AND OCCASIONALLY V-PACED, HR 60S TO LOW 100S. SBP 90S TO 140S. NO BM THIS SHIFT. PATIENT GIVEN PRN MOM. TF GOAL INCREASED FROM 25 TO 40 MLS/ HOUR. NO CHANGE IN SKIN. PATIENT REPOSITIONED THROUGHOUT SHIFT. 1 G MAG REPLACEMENT GIVEN THIS SHIFT. PATIENT APPEARS COMFORTABLE AT THIS TIME. BED LOW, CALL LIGHT IN REACH. REPORT WILL BE GIVEN TO ONCOMING ENGINEER STATION MAINLINE NURSE SHORTLY.
--- NOTE | 2021-02-14 20:30 | NUR ---
ASSUMPTION OF CARE PT INTUBATED AND SEDATED, VENT SET TO AC 12/430 PEEP 5 FIO2 50%, PROPOFOL INFUSING @ 25mcg/kg/min. PT OPENS EYES TO VERBAL STIMULI, ANSWERS YES/NO QUESTIONS, DENIES PAIN OR DISCOMFORT. SMALL AMOUNTS OF THICK BROWN SPUTUM WITH MINIMAL RED STREAKS. MONITOR SHOWS AFIB VS AFLUTTER, HR 60'S, BP STABLE. OGT IN PLACE WITH TF @ GOAL RATE OF 40ml/hr, LOW RESIDUALS. GUPTA IN PLACE DRAINING CLEAR YELLOW URINE. PT MOVES ALL EXTREMEMTIES BUT IS VERY WEAK T/O.
[2021-02-15 04:24] LABS: BASOPHILS ABSOLUTE AUTO 0.02 K/mm3 (0.00-0.23); BASOPHILS PERCENT AUTO 0 % (0-2); EOSINOPHILS ABSOLUTE AUTO 0.06 K/mm3 (0.00-0.68); EOSINOPHILS PERCENT AUTO 1 % (0-6); Hemoglobin 12.6 g/dL (11.5-16.0); IMMATURE GRAN ABSOLUTE AUTO 0.18 K/mm3 (0.00-0.10); IMMATURE GRAN PERCENT AUTO 2 % (0-1); LYMPHOCYTES ABSOLUTE AUTO 0.84 K/mm3 (0.84-5.20); LYMPHOCYTES PERCENT AUTO 9 % (21-46); MONOCYTES ABSOLUTE AUTO 0.83 K/mm3 (0.16-1.47); MONOCYTES PERCENT AUTO 9 % (4-13); Mean Corpuscular HGB 31.9 pg (26.0-34.0); Mean Corpuscular HGB Conc 33.2 g/dL (31.5-36.5); Mean Corpuscular Volume 96 fL (80-100); Mean Platelet Volume 10.6 fL (9.1-12.4); NEUTROPHILS PERCENT AUTO 79 % (41-73); Platelet Count 199 K/mm3 (150-400); RDW Coefficient Variation 14.5 % (11.7-14.2); RDW Standard Deviation 51.7 fL (35.1-46.3); Red Blood Cell Count 3.95 M/mm3 (3.80-5.20); White Blood Cell Count 9.13 K/mm3 (4.00-11.30)
[2021-02-15 04:41] LABS: Anion Gap 5 mmol/L (6-16); Blood Urea Nitrogen 30 mg/dL (8-24); Bun/Creatinine Ratio 56.4 (12.0-20.0); CO2, Blood 28 mmol/L (21-32); Calcium, Blood 6.9 mg/dL (8.5-10.1); Chloride, Blood 112 mmol/L (98-108); Creatinine, Blood 0.53 mg/dL (0.40-1.00); Glomerular Filtration Rate >60 (60-); Glucose, Blood 141 mg/dL (70-99); Magnesium, Blood 1.9 mg/dL (1.6-2.4); Phosphorus, Blood 2.3 mg/dL (2.5-4.9); Potassium, Blood 3.2 mmol/L (3.5-5.5); Sodium, Blood 145 mmol/L (136-145)
--- NOTE | 2021-02-15 06:20 | NUR ---
SHIFT SUMMARY PT RESTED WELL T/O NIGHT, REMAINS INTUBATED, SEDATION PLACED ON SB THIS AM AND REMAINS OFF, PT ALERT AND FOLLOWING COMMANDS, DENIES PAIN/DISCOMFORT. VENT SET TO PS 10/5 FIO2 50%, PT TOLERATING WELL, OCCASSIONALLY COUGHING THE VENT, MEDICATED WITH FENTANYL. RR 16-20 AND TV 400-600'S. PT WITH RED SECRETIONS FROM ETT. MONITOR SHOWS AFIB/AFLUTTER, OCCASSIONAL VENTRICULAR PACING, HR 60'S-90'S, BP STABLE. OGT REMAINS IN PLACE, TF @ GOAL RATE OF 40ml/hr, LOW RESIDUALS, NO BM THIS SHIFT. GUPTA IN PLACED DRAINING DARK YELLOW URINE. CALL LIGHT PLACED IN PTS HAND, EDUCATED ON USE, PT VERY WEAK BUT ABLE TO DEMONSTRATE USE OF CALL LIGHT. PT CALM AND COOPERATIVE, DENIES ANY NEEDS AT THIS TIME.
--- NOTE | 2021-02-15 08:10 | NUR ---
INITIAL ASSESSMENT PATIENT INTUBATED AND ON SEDATION VACATION. PATIENT FOLLOWING COMMANDS AND ABLE TO NOD AND SHAKE HEAD TO ANSWER QUESTIONS. PATIENT AFEBRILE. PATIENT GIVEN PRN FENTANYL THIS AM FOR COMPLAINTS OF DISCOMFORT; PATIENT REPORTED RELIEF AFTER. LUNGS CLEAR IN UPPER LOBES; CRACKLES NOTED IN LOWER LOBES. PATIENT SATTING 90% AND GREATER ON SPONTANEOUS PS 10/5, 50% FIO2. MODERATE AMOUNT OF THICK, RED SECRETIONS BEING SUCTIONED FROM ETT. PATIENT IN A. FLUTTER; OCCASIONALLY V-PACED. HR 80S TO LOW 100S. SBP 150S TO 160S. SCDS IN PLACE. NORMOACTIVE BS NOTED. TF AT GOAL RATE OF 40 MLS/ HOUR WITH 30 ML WATER FLUSH. RESIDUAL OF 15 MLS OBTAINED AND REINSTILLED THIS AM. GUPTA DRAINING YELLOW COLORED URINE. SCATTERED BRUISES NOTED. PATIENT BEING REPOSITIONED Q2H AND PRN. NS TKO. PATIENT RECEIVING 20 MM KPHOS AND RECEIVED 2 G CALCIUM GLUCONATE THIS AM FOR ELECTROLYTE REPLACEMENT. BED LOW, CALL LIGHT IN REACH. WILL CONTINUE TO MONITOR PATIENT FREQUENTLY THROUGHOUT SHIFT.
--- NOTE | 2021-02-15 09:00 | NUR ---
UPDATED DR. CASTELLANOS ON PATIENT STATUS. INFORMED THAT PATIENT RECEIVED 20 MM KPHOS AND 2 G CALCIUM GLUCONATE FOR ELECTROLYTE REPLACEMENT THIS AM. INFORMED THAT KIDNEY LABS ARE INCREASED THIS AM. INFORMED THAT PATIENT HAD 150 MLS OF URINE OUT THIS AM. INFORMED THAT PATIENT BODY SPASMS/ INVOLUNTARY JERKING INCREASED TODAY FROM YESTERDAY. STATED SHE WOULD PLACE ORDERS.
--- NOTE | 2021-02-15 09:00 | NUR ---
DR. CASTELLANOS UPDATED ON PATIENT STATUS. INFORMED THAT PATIENT PLACED ON SPONTANEOUS PS 10/5, 50% AROUND 0615 THIS MORNING AND REMAINS SATTING WELL. INFORMED THAT PATIENT IS FOLLOWING COMMANDS AND ABLE TO COMMUNICATE NEEDS WITH NODDING AND SHAKING OF HEAD. INFORMED THAT PATIENT HAS MODERATE AMOUNT OF THICK, RED SECRETIONS BEING SUCTIONED FROM ETT. INFORMED THAT PATIENT RECEIVED 20 MM KPHOS AND 2 G CALCIUM GLUCONATE THIS AM FOR ELECTROLYTE REPLACEMENT. NO ORDERS RECEIVED AT THIS TIME.
--- NOTE | 2021-02-15 10:54 | NUR ---
PATIENT EXTUBATED AT 1030 WITHOUT ANY DIFFICULTY. PATIENT SATTING MID 90S ON 5 L HF NC. PATIENT CALM AND COOPERATIVE. PATIENT'S DAUGHTER UPDATED.
--- NOTE | 2021-02-15 12:40 | NUR ---
PATIENT AFEBRILE. PATIENT DENIES PAIN. PATIENT EXTUBATED THIS MORNING AND REMAINS SATTING 90% AND GREATER ON 5 L HF NC. PATIENT ALERT AND ORIENTED X 4. PATIENT PASSED BEDSIDE SWALLOW EVAL. VOICE QUIET POST EXTUBATION. HR 80S TO LOW 100S. SBP 120S TO 140S. OG REMOVED AND TF DISCONTINUED AFTER EXTUBATION. BLOOD SUGAR OF 219; COVERAGE GIVEN. NO OTHER ACUTE CHANGES TO NOTE ON AT THIS TIME. WILL CONTINUE TO MONITOR.
--- NOTE | 2021-02-15 16:00 | NUR ---
PATIENT AFEBRILE. PATIENT REMAINS SATTING 90% AND GREATER ON 5 L HF NC. PATIENT IN A. FIB/ A. FLUTTER. HR 80S TO 120S. SBP 130S TO 160S. PATIENT SPOKE ON PHONE WITH DAUGHTER WITH HELP OF NURSE. NO OTHER ACUTE CHANGES TO NOTE ON AT THIS TIME. WILL CONTINUE TO MONITOR.
[2021-02-15 16:56] LABS: Magnesium, Blood 1.7 mg/dL (1.6-2.4)
[2021-02-15 16:59] LABS: Anion Gap 7 mmol/L (6-16); Blood Urea Nitrogen 27 mg/dL (8-24); Bun/Creatinine Ratio 49.9 (12.0-20.0); CO2, Blood 28 mmol/L (21-32); Chloride, Blood 106 mmol/L (98-108); Creatinine, Blood 0.54 mg/dL (0.40-1.00); Glomerular Filtration Rate >60 (60-); Glucose, Blood 192 mg/dL (70-99); Phosphorus, Blood 3.8 mg/dL (2.5-4.9); Potassium, Blood 4.4 mmol/L (3.5-5.5); Sodium, Blood 141 mmol/L (136-145)
[2021-02-15 17:00] LABS: Calcium, Blood 9.1 mg/dL (8.5-10.1)
--- NOTE | 2021-02-15 19:05 | NUR ---
SHIFT SUMMARY PATIENT INTUBATED AT START OF SHIFT. PATIENT EXTUBATED AT 1030. PATIENT ALERT AND ORIENTED X 4. REMAINED AFEBRILE. PATIENT SATTING 90% AND GREATER ON 5 L HF NC. PATIENT REMAINS COUGHING UP THICK, MAROON COLORED SPUTUM. HR 80S TO 120S. SBP 120S TO 160S. NO BM THIS SHIFT. PATIENT PASSED BEDSIDE SWALLOW EVAL AND PLACED ON FULL LIQUID DIET; ADVANCE TOLERATED. GUPTA DRAINED 1500 MLS OF YELLOW COLORED URINE. NO CHANGE IN SKIN. PATIENT REPOSITIONED THROUGHOUT SHIFT. NS TKO. PATIENT COMFORTABLE AT THIS TIME. BED LOW, CALL LIGHT IN REACH. REPORT GIVEN TO ASSUMING GRADUATE RECRUITER NURSE.
--- NOTE | 2021-02-15 21:00 | NUR ---
ASSUMPTION OF CARE PT ALERT AND ORIENTED TO SELF, EVENT, LOCATION AND FOLLOWING DIRECTIONS. PT ON 5L PER HUMIDIFIED NC AND TITRATED TO 3L TO MAINTAIN O2 SATURATIONS> 90%. PT WITH WEAK COUGH BUT CLEARING OWN SECRETIONS AND USING ORAL SUCTION INDEPENDENTLY PRN. PT DENIES PAIN OR SOB, REPORTS DIFFICULTY SLEEPING, DISCUSSED WITH DR MURO, SEE NEW ORDER FOR MELATONIN. MONITOR SHOWS AFIB WITH HR 80'S-110, BP STABLE. PT TOLERATING PO INTAKE, DENIES NAUSEA OR ABD PAIN, SWALLOWS PILLS WHOLE ON AT A TIME WITH WATER. GUPTA REMAINS IN PLACE, DARK YELLOW UIRNE. PT WEAK BUT MOVES ALL EXTREMETIES AND ABLE TO ASSIST WITH TURNS AND REPOSTIONING. CALL LIGHT WITHIN REACH, PT USING APPROPRIATELY.
[2021-02-16 04:42] LABS: BASOPHILS ABSOLUTE AUTO 0.05 K/mm3 (0.00-0.23); BASOPHILS PERCENT AUTO 1 % (0-2); EOSINOPHILS PERCENT AUTO 1 % (0-6); Hematocrit 43.6 % (33.0-51.0); Hemoglobin 14.4 g/dL (11.5-16.0); IMMATURE GRAN ABSOLUTE AUTO 0.26 K/mm3 (0.00-0.10); IMMATURE GRAN PERCENT AUTO 2 % (0-1); LYMPHOCYTES ABSOLUTE AUTO 1.23 K/mm3 (0.84-5.20); LYMPHOCYTES PERCENT AUTO 11 % (21-46); MONOCYTES ABSOLUTE AUTO 0.94 K/mm3 (0.16-1.47); MONOCYTES PERCENT AUTO 9 % (4-13); Mean Corpuscular HGB 31.6 pg (26.0-34.0); Mean Corpuscular Volume 96 fL (80-100); Mean Platelet Volume 10.2 fL (9.1-12.4); NEUTROPHILS PERCENT AUTO 76 % (41-73); Platelet Count 250 K/mm3 (150-400); RDW Coefficient Variation 14.6 % (11.7-14.2); Red Blood Cell Count 4.56 M/mm3 (3.80-5.20); White Blood Cell Count 10.88 K/mm3 (4.00-11.30)
[2021-02-16 04:59] LABS: Anion Gap 5 mmol/L (6-16); Blood Urea Nitrogen 24 mg/dL (8-24); Bun/Creatinine Ratio 38.7 (12.0-20.0); CO2, Blood 31 mmol/L (21-32); Calcium, Blood 8.9 mg/dL (8.5-10.1); Chloride, Blood 108 mmol/L (98-108); Creatinine, Blood 0.62 mg/dL (0.40-1.00); Glomerular Filtration Rate >60 (60-); Glucose, Blood 100 mg/dL (70-99); Phosphorus, Blood 3.3 mg/dL (2.5-4.9); Potassium, Blood 3.6 mmol/L (3.5-5.5); Sodium, Blood 144 mmol/L (136-145)
--- NOTE | 2021-02-16 06:43 | NUR ---
SHIFT SUMMARY PT RESTED T/O NIGHT, REMAINS ORIENTED x4, O2 SATURATIONS> 90% ON 3L PER HUMIDIFIED NC, ATTEMPTED PLACING PT ON ROOM AIR AND O2 SATURATIONS DECREASED AND MAINTAINED @ 85%. PT CONTINUES TO HAVE PRODUCTIVE COUGH, USES BEDSIDE SUCTION TO ASSIST IN CLEARING SECRETIONS. MONITOR SHOWS AFIB/AFLUTTER WITH HR 70'S-110, BP STABLE. GUPTA REMAINS IN PLACE WITH GOOD URINE OUTPUT. CALL LIGHT WITHIN REACH.
--- NOTE | 2021-02-16 20:00 | NUR ---
ASSUMED CARE OF PT AT 1915. REPORT RECEIVED. PT PRESENTS IN BED. 3 L/M O2 PER NASAL CANNULA ALLOWS OXYGEN SATURATIONS TO REMAIN > 90 PERCENT. PT IN NO APPARENT DISTRESS. ALERT AND ORIENTED. PLEASANT AND COOPERATIVE WITH CARE AND ASSESSMENT. WILL REVIEW CHART AND PLAN OF CARE FOR THIS PT.
--- NOTE | 2021-02-16 23:21 | NUR ---
PT HAS BOUT OF NAUSEA WHEREAS SHE BRINGS UP PRODUCT RESEMBLING PHLEGM. PT STATES SHE IS NOT AWARE IF THIS IS FROM EMESIS OR IF SHE IS ACTUALLY EXPECTORATING. DID MEDICATE PT WITH ZOFRAN 4 MG. HEART RATE REMAINS IN AFIB WITH RVR. PT MEDICATED WITH SCHEDULED METOPROLOL. BLOOD PRESSURES HAVE BEEN SOMEWHAT HYPERTENSIVE. WILL DO HOURLY BLOOD PRESSURES AND TREND DIRECTION. PT ABLE TO MOVE ABOUT IN BED ON HER OWN. HAVE ASSISTED WITH PILLOWS FOR PT COMFORT.
--- NOTE | 2021-02-17 06:30 | NUR ---
PT HAS BEEN ABLE TO REST SOME THIS NIGHT. HAVE TURNED PT Q 2 HOURS. PT HAS BEEN ABLE TO EXPECTORATE CREAM COLORED SECRETIONS. USES YAUNKEUR TO SELF SUCTION. REMAINS IN AFIB THROUGHOUT THE NIGHT. BLOOD PRESSURES HAVE BEEN SOMEWHAT ELEVATED. WILL CONTINUE TO MONITOR PT, AND WILL REPORT OFF TO ONCOMING RN.
--- NOTE | 2021-02-17 18:00 | NUR ---
SHIFT SUMMARY PT UP IN CHAIR ALL DAY TODAY. PT WORKED WITH PT/OT TODAY AND DID WELL. PTS DAUGHTER CAME TO THE WINDOW TO SEE HER MOM AND TALKED ON THE PHONE. PT WAS VERY HAPPY WITH THAT. RN BROUGHT PT A BOOK INTO THE ROOM BECAUSE SHE DOESNT WATCH TV MUCH. PT ALSO ONLY ABLE TO SEE OUT OF ONE EYE. APPETITE IMPROVED TODAY WELL STRENGTH IMPROVED. REMAINS ON 3L NC, PRODUCTIVE COUGH NOT BAD. VSS FOR THE SHIFT. BLOOD SUGARS REQUIRED COVERAGE FOR LUNCH AND DINNER.
--- NOTE | 2021-02-17 19:23 | NUR ---
ASSUMED CARE: RECEIVED REPORT AT [facility] D/T COVID RESTIRCTIONS. PT APEARS TO BE STABLE AND COMFORTABLE. WAVEING AT PT SHE SMILES AND WAVES BACK. PT VSS AT THIS TIME. CALL LIGHT IN REACH. WILL CONTINUE TO MONIOTOR AND ASSESS FURTHER
--- NOTE | 2021-02-17 20:48 | NUR ---
ASSISTED PT TO BS PT WAS ABLE TO TRANSFER TO BS WITHOUT ANY DIFFICULTY. GETTING OFF OF THE BSC PROVED TO BE CHALLENGING FOR THE PT. WITH GAIT BELT AND WALKER AND ROCKING MOTION PT WAS ABLE TO PUSH OFF OF THE BSC AND GRAB THE WALKER WITH 1 PERSON ASSIST. PT WAS ABLE TO POSSITION HERSELF IN BED JUST RIGHT WITH MINIMAL ASSISTANCE.
--- NOTE | 2021-02-18 00:38 | NUR ---
PT IS NOTED TO BE UP AT THE EDGE OF THE BED. SILVANA LUNA RN GOES IN TO SEE PT AND STATES PT VERBALIZES SEEING A DOG JUST CHEWED UP AND HER 13 YEAR OLD GRAND DAUGHTER IS WONDERING AROUND AND DOESN'T KNOW HOW SHE GOT IN HERE. PT PULLED CORDS AND WIRES OFF AND HAD TO BE REPLACED. PT ASSURED HER GRAND DAUGHER IS NOT HERE AND ALL CORDS AND WIRES REPLACED. PT READJUSTED IN THE BED.
--- NOTE | 2021-02-18 07:28 | NUR ---
ASSUMED CARE: PT RESTING QUIETLY IN BED, AFIB ON TELE, 120S. 3L NC. NO ACUTE NEEDS OR CONCERNS AT THIS TIME.
[2021-02-18 08:39] LABS: Hematocrit 46.7 % (33.0-51.0); Hemoglobin 14.9 g/dL (11.5-16.0); Mean Corpuscular HGB 31.7 pg (26.0-34.0); Mean Corpuscular HGB Conc 31.9 g/dL (31.5-36.5); Mean Corpuscular Volume 99 fL (80-100); Mean Platelet Volume 10.6 fL (9.1-12.4); Platelet Count 298 K/mm3 (150-400); RDW Coefficient Variation 14.1 % (11.7-14.2); RDW Standard Deviation 51.8 fL (35.1-46.3)
--- NOTE | 2021-02-18 08:40 | NUR ---
DR KO CAME IN TO SEE PT AND IS AWARE OF ELEVATED HR. STATES HE IS ADJUSTING CARDIAC MEDICATIONS AND STILL WANTS PT TO BE MED WITH TELE.
[2021-02-18 08:54] LABS: Anion Gap 6 mmol/L (6-16); Blood Urea Nitrogen 25 mg/dL (8-24); Bun/Creatinine Ratio 42.4 (12.0-20.0); CO2, Blood 31 mmol/L (21-32); Calcium, Blood 9.4 mg/dL (8.5-10.1); Chloride, Blood 105 mmol/L (98-108); Creatinine, Blood 0.59 mg/dL (0.40-1.00); Glomerular Filtration Rate >60 (60-); Glucose, Blood 135 mg/dL (70-99); Potassium, Blood 3.7 mmol/L (3.5-5.5); Sodium, Blood 142 mmol/L (136-145)
--- NOTE | 2021-02-18 17:48 | NUR ---
SHIFT SUMMARY: PT SITTING UPRIGHT IN CHAIR AT THIS TIME. VSS, HR IN 90S TO 120S MAJORITY OF DAY. 3L O2 SATTING 93%. APPEARS TO BE OWNING VS ICU DELERIUM DUE TO CONFUSION AND HALLUCINATIONS AT TIMES. FAMILY CALLED AND HAS BEEN GIVEN UPDATE. NO FURTHER NEEDS OR CONCERNS AT THIS TIME.
--- NOTE | 2021-02-18 19:15 | NUR ---
ASSUMED CARE REPORT RECEIVED PT A&O, SLIGHTL CONFUSED ON AND OFF, ON 3 L N/C. VITALS STABLE. CONTINUE ASSESSMENT ABD CARE.
[2021-02-18 22:28] LABS: Adenovirus F 40/41 Not Detected (NOT DETECT); Astrovirus Not Detected (NOT DETECT); Campylobacter Sp Not Detected (NOT DETECT); Cryptosporidium Not Detected (NOT DETECT); Cyclospora Cayetanensis Not Detected (NOT DETECT); E. Coli O157 Not Detected (NOT DETECT); Entamoeba Histolytica Not Detected (NOT DETECT); Enteroaggregative E. coli-EAEC Not Detected (NOT DETECT); Enteropathogenic E. coli-EPEC Not Detected (NOT DETECT); Enterotoxigenic E. coli-ETEC Not Detected (NOT DETECT); Giardia Lamblia Not Detected (NOT DETECT); Norovirus GI/GII Not Detected (NOT DETECT); Plesiomonas Shigelloides Not Detected (NOT DETECT); Rotavirus A Not Detected (NOT DETECT); Salmonella Sp Not Detected (NOT DETECT); Sapovirus Not Detected (NOT DETECT); Shiga Toxin-prod E. coli-STEC Not Detected (NOT DETECT); Shigella/Enteroin E. coli-EIEC Not Detected (NOT DETECT); Vibrio Cholerae Not Detected (NOT DETECT); Vibrio Sp Not Detected (NOT DETECT); Yersinia Enterocolitica Not Detected (NOT DETECT)
--- NOTE | 2021-02-19 00:35 | NUR ---
BLADDER SCAN = 100 ML.
[2021-02-19 06:12] LABS: Anion Gap 5 mmol/L (6-16); Blood Urea Nitrogen 27 mg/dL (8-24); Bun/Creatinine Ratio 45.2 (12.0-20.0); CO2, Blood 31 mmol/L (21-32); Calcium, Blood 9.2 mg/dL (8.5-10.1); Chloride, Blood 107 mmol/L (98-108); Glomerular Filtration Rate >60 (60-); Glucose, Blood 115 mg/dL (70-99); Potassium, Blood 3.7 mmol/L (3.5-5.5); Sodium, Blood 143 mmol/L (136-145)
--- NOTE | 2021-02-19 06:54 | NUR ---
OVERNIGHT PT SLEPT WELL, UP TO BSC WITH ASSIST 1 AND FWW. VITALS REMAIN STABLE OVERNIGHT NOTED IN FLOWSHEET. LOW URINE OUTPUT, 100ML, BLADDERSCANED= 100 ML PRE VOID. 1 LRG LIQUID BM-SAMPLE SENT TO LAB. CONTINUE CARE-REPORT OFF TO ONCOMING SHIFT.
--- NOTE | 2021-02-19 17:55 | NUR ---
SHIFT SUMMARY PT IS ALERT AND ORIENTEDx4, DOES SAY A FEW THINGS THAT ARE OFF. INITIALLY PT WAS ON 3L OF O2 VIA NC AND PT HAS TOLERATED WEANING TO 1L VIA NC TO MAINTAIN SPO2 >92%. PT RESPONDED WELL TO LASIX THIS MORNING. ONE PERSON ASSISTED MOVING IN ROOM. PT'S HR WOULD INCREASE WITH ACTIVITY TO 130'S-150'S, WHEN PT SITS AND RESTS, HR WOULD DECREASE BACK DOWN TO 80'S-100'S. A-FIB ON THE MONITOR. PT HAS TOLERATED SITTING UP IN CHAIR MOST OF THE DAY TODAY. VITALS HAVE REMAINED STABLE.
--- NOTE | 2021-02-19 21:49 | NUR ---
SHIFT ASSESSMENT ASSUMED CARE OF PT @ 1900. PT ALERT AND ORIENTED, BUT HAVING VISUAL HALLUCINATIONS. STATED "THE NURSE LAST NIGHT KEPT ME AWAKE, SHE HAD TO LEAVE BECAUSE SHE WAS HAVING HER BABY". THIS NURSE SPOKE WITH PTS DAUGHTER WHO SAID THAT IS NOT NORMAL FOR THE PT. SHE IS CURRENTLY ON 1LPM O2 VIA NC c SATS >90%. VSS. A-FIB ON THE MONITOR. NO COMPLAINTS AT THIS TIME. WILL CONTINUE TO MONITOR.
[2021-02-20 04:00] LABS: Anion Gap 6 mmol/L (6-16); Blood Urea Nitrogen 28 mg/dL (8-24); Bun/Creatinine Ratio 40.8 (12.0-20.0); CO2, Blood 30 mmol/L (21-32); Chloride, Blood 107 mmol/L (98-108); Creatinine, Blood 0.69 mg/dL (0.40-1.00); Glomerular Filtration Rate >60 (60-); Glucose, Blood 139 mg/dL (70-99); Potassium, Blood 3.8 mmol/L (3.5-5.5); Sodium, Blood 143 mmol/L (136-145)
--- NOTE | 2021-02-20 06:20 | NUR ---
SHIFT SUMMARY PT REMAINS ON 1LPM O2 VIA NC. CLEARING SECRETIONS, UTILIZING SUCTION. PT ABLE TO SLEEP DURING THE NIGHT. NO SIGNIFICANT CHANGES, WILL CONTINUE TO MONITOR. REPORT TO ONCOMING NURSE.
--- NOTE | 2021-02-20 10:10 | NUR ---
AM NOTE... ASSUMED CARE OF PT AT 0700. PT IS A&Ox4 WITH SOME FORGETFULNESS, PT'S VS STABLE AT THIS TIME. PT IS IN AFIB IN THE 90'S-100'S BUT INCREASES TO 120'S-130'S WITH ACTIVITY. PT IS ON 1L NC WITH O2 SATS >92% PT CAN BE ON RA IF RESTING AND NOT ACTIVE. L/S CLEAR IN THE UPPER LOBES WITH FINE CRACKLES NOTED IN BILATERAL LOWER LOBES. PT IS SBA TO THE BSC AND THE CHAIR. WILL CONTINUE TO MONITOR.
--- NOTE | 2021-02-20 18:30 | NUR ---
SHIFT SUMMARY... NO ACUTE NEGATIVE CHANGES NOTED THIS SHIFT. PT CONTINUES TO BE ON 1-2L NC WITH O2 SATS>90%. PT HAS BEEN SBA TO THE BSC AND THE CHAIR. PT HAS BEEN UP IN THE CHAIR FOR MOST OF THIS SHIFT. THE PLAN IS FOR THE PT TO D/C HOME TOMORROW AFTER SHE IS SEEN BY PT/OT AND HAS A HOME O2 EVAL. PT HAS BEEN CONT OF BOWEL AND BLADDER THIS SHIFT. CALL LIGHT IN REACH WILL CONTINUE TO MONITOR UNTIL REPORT IS GIVEN TO ONCOMING RN.
[2021-02-21 05:58] LABS: Anion Gap 8 mmol/L (6-16); Blood Urea Nitrogen 27 mg/dL (8-24); Bun/Creatinine Ratio 38.4 (12.0-20.0); CO2, Blood 28 mmol/L (21-32); Calcium, Blood 9.2 mg/dL (8.5-10.1); Chloride, Blood 108 mmol/L (98-108); Glomerular Filtration Rate >60 (60-); Glucose, Blood 132 mg/dL (70-99); Potassium, Blood 3.6 mmol/L (3.5-5.5); Sodium, Blood 144 mmol/L (136-145)
--- NOTE | 2021-02-21 06:01 | NUR ---
SHIFT SUMMARY NO ACUTE CHANGES THIS SHIFT. PT A&OX4, USES CALL LIGHT APPROPRIATELY. VSS. SP02>92% ON 1L NC. TELEMETRY READS AFIB/FLUTTER, HR 80'S-120S. HR INCREASES W/ EXERTION. PT UP TO BATHROOM THIS SHIFT TO HAVE DIARRHEA X1. WALKER AND GAITBELT USED. PT HAS IRIS POWERGLIDE, FLUSHES NICELY BUT DOES NOT DRAW. PT SLEPT T/O NIGHT. CALL IGHT IN REACH. WILL GIVE REPORT TO ONCOMING NURSE.
--- NOTE | 2021-02-21 09:30 | NUR ---
PT'S DAUGHTER CALLED AND WAS GIVEN AN UPDATE ON STATUS. DAUGHTER REQUESTED WALKER WITH SEAT. SPOKE WITH DC PLANNING WHO IS WORKING ON GETTING PT A WHEEL CHAIR. STATED SHE WOULD CALL PT'S DAUGHTER TO DETERMINE WHICH PEICE OF EQUIPMENT IS NEEDED MORE. AWAITING RT FOR HOME O2 EVAL.
[2021-02-21] MEDS ORDERED: LEVAQUIN750 MG PO (11:38)
[2021-02-21] MEDS ORDERED: XARELTO20 M1 PO (11:41)
[2021-02-21] MEDS ORDERED: FURO40 PO (11:42)
[2021-02-21] MEDS ORDERED: VISBIOME 112.51 EACH PO (11:42)
[2021-02-21] MEDS ORDERED: POTA10T PO (11:43)
--- NOTE | 2021-02-21 12:21 | NUR ---
RT AT BEDSIDE AT THIS TIME.
--- NOTE | 2021-02-21 16:39 | NUR ---
IV DC'D WNL. DISCHARGE INFORMATION GIVEN TO PT AND HER DAUGHTER. PT'S O2 EVAL SHOWED THAT NO HOME O2 NEEDED. PT TRANSFERRED OUT VIA WHEEL CHAIR BY HOSPITAL STAFF. NO ACUTE NEEDS OR QUESTIONS.
== END 2021-02-21 16:15 | disposition home health service (06) | DRG 208 ==
LOC: ER 08:01 → ICUW 13:45 → MEDS 13:45 → EDBEDREQ 14:44 → MEDS 15:04 → ICUW 02-10 20:03
PROVIDERS: Family Medicine; Internal Medicine; Internal Medicine Critical Care Medicine; Physician Assistant; ADMIT Internal Medicine
PROC: 8E0ZXY6 Isolation (ICD-10-PCS; 2021-02-09)
PROC: 3E0333Z Introduction of Anti-inflammatory into Peripheral Vein, Percutaneous Approach (ICD-10-PCS; 2021-02-09)
PROC: XW033E5 Introduction of Remdesivir Anti-infective into Peripheral Vein, Percutaneous Approach, New Technology Group 5 (ICD-10-PCS; 2021-02-09)
PROC: 0BH18EZ Insertion of Endotracheal Airway into Trachea, Via Natural or Artificial Opening Endoscopic (ICD-10-PCS; principal; 2021-02-11)
PROC: 5A1945Z Respiratory Ventilation, 24-96 Consecutive Hours (ICD-10-PCS; 2021-02-11)
DX: U07.1 COVID-19 (principal); J12.82 Pneumonia due to coronavirus disease 2019; J96.01 Acute respiratory failure with hypoxia; I48.20 Chronic atrial fibrillation, unspecified; N39.0 Urinary tract infection, site not specified; I50.32 Chronic diastolic (congestive) heart failure; Z79.01 Long term (current) use of anticoagulants; Z68.37 Body mass index [BMI] 37.0-37.9, adult; Z87.11 Personal history of peptic ulcer disease; Z95.0 Presence of cardiac pacemaker; K21.9 Gastro-esophageal reflux disease without esophagitis; Z90.49 Acquired absence of other specified parts of digestive tract; Z98.890 Other specified postprocedural states; Z88.8 Allergy status to other drugs, medicaments and biological substances; Z88.0 Allergy status to penicillin; Z79.899 Other long term (current) drug therapy; E66.9 Obesity, unspecified; E11.65 Type 2 diabetes mellitus with hyperglycemia; I11.0 Hypertensive heart disease with heart failure; R19.7 Diarrhea, unspecified; B96.20 Unspecified Escherichia coli [E. coli] as the cause of diseases classified elsewhere; R44.1 Visual hallucinations; J44.9 Chronic obstructive pulmonary disease, unspecified
CPT/HCPCS: 0097U; 31500; 36415; 36600; 51702; 71045; 71046; 80048; 80053; 80069; 81001; 82803; 82947; 83605; 83615; 83735; 83880; 84100; 84145; 84443; 84484; 85025; 85027; 85379; 85610; 87040; 87070; 87077; 87086; 87186; 87205; 93005; 93010; 93306; 94002; 94003; 94640; 94660; 94760; 94761; 94762; 96365; 96375; 97110; 97110-CQ; 97116; 97162; 97166; 97530; 97530-CQ; 97535; 99285-25; A9270; A9270-GY; C1751; J0330; J0610; J1100; J1160; J1815; J1940; J1956; J2060; J2370; J2405; J2550; J2704; J3010; J3475; J7040; J7050; J7060; P9041; P9046

== ENCOUNTER 2021-02-26 15:07 | Inpatient (IN) | payer MEDICARE, OTHER ==
[~2021-02-26] VITALS: Ht 162.6 cm; Wt 96.2 kg
[~2021-02-26 15:07] MED LIST changes: -METFORMIN HCL500 M2 PO; -NITR100CA PO
[2021-02-26 15:38] LABS: BASOPHILS ABSOLUTE AUTO 0.07 K/mm3 (0.00-0.23); BASOPHILS PERCENT AUTO 1 % (0-2); EOSINOPHILS ABSOLUTE AUTO 0.23 K/mm3 (0.00-0.68); EOSINOPHILS PERCENT AUTO 2 % (0-6); Hematocrit 42.3 % (33.0-51.0); Hemoglobin 13.9 g/dL (11.5-16.0); IMMATURE GRAN PERCENT AUTO 1 % (0-1); LYMPHOCYTES ABSOLUTE AUTO 1.66 K/mm3 (0.84-5.20); LYMPHOCYTES PERCENT AUTO 12 % (21-46); MONOCYTES ABSOLUTE AUTO 1.24 K/mm3 (0.16-1.47); MONOCYTES PERCENT AUTO 9 % (4-13); Mean Corpuscular HGB Conc 32.9 g/dL (31.5-36.5); Mean Corpuscular Volume 97 fL (80-100); Mean Platelet Volume 11.1 fL (9.1-12.4); NEUTROPHILS ABSOLUTE AUTO 11.05 K/mm3 (1.96-9.15); NEUTROPHILS PERCENT AUTO 77 % (41-73); NRBC ABSOLUTE 0.02 K/mm3 (0.00-0.02); NRBC Auto 0.1 /100 WBC (0.0-0.2); Platelet Count 237 K/mm3 (150-400); RDW Coefficient Variation 14.4 % (11.7-14.2); RDW Standard Deviation 51.4 fL (35.1-46.3); Red Blood Cell Count 4.35 M/mm3 (3.80-5.20); White Blood Cell Count 14.35 K/mm3 (4.00-11.30)
[2021-02-26 15:58] LABS: Alanine Aminotransfer (ALT/SGP 22 U/L (12-78); Albumin, Blood 2.8 g/dL (3.4-5.0); Albumin/Globulin Ratio 0.7 (0.8-1.8); Alk Phos 60 U/L (50-136); Anion Gap 10 mmol/L (6-16); Aspartate Aminotrans (AST/SGOT 22 U/L (12-37); Bilirubin, Total 0.8 mg/dL (0.1-1.0); Blood Urea Nitrogen 41 mg/dL (8-24); Bun/Creatinine Ratio 31.1 (12.0-20.0); CO2, Blood 26 mmol/L (21-32); Calcium, Blood 8.3 mg/dL (8.5-10.1); Chloride, Blood 107 mmol/L (98-108); Creatinine, Blood 1.32 mg/dL (0.40-1.00); Globulin, Blood 3.9 g/dL (2.2-4.0); Glomerular Filtration Rate 41 (60-); Glucose, Blood 90 mg/dL (70-99); Potassium, Blood 2.9 mmol/L (3.5-5.5); Sodium, Blood 143 mmol/L (136-145); Total Protein, Blood 6.7 g/dL (6.4-8.2); Troponin I <0.015 ng/mL (0.000-0.040)
[2021-02-26] MEDS ORDERED: METFORMIN HCL500 M2 PO (18:06)
[2021-02-26 18:33] LABS: Source, Urine Clean Catch
[2021-02-26 18:56] LABS: Appearance, Urine Hazy (Clear); Bilirubin, Urine Neg (Neg); Blood, Urine 2+ (Neg); Color, Urine Yellow (P-Yellow); Glucose Qualitative, Urine Neg (Neg); Ketones, Urine Neg (Neg); Leukocyte Esterase, Urine 2+ (Neg); Nitrite, Urine Pos (Neg); Protein, Urine 1+ (Neg); Urobilinogen, Urine NORM (Normal)
[2021-02-26 19:16] LABS: Bacteria Many /hpf; Squamous Epithelial Cells Few /hpf (Few); Transitional Epithelial Cells Few /hpf (0-Rare)
[2021-02-26 22:00] LABS: Magnesium, Blood 1.2 mg/dL (1.6-2.4); Potassium, Blood 2.8 mmol/L (3.5-5.5)
--- NOTE | 2021-02-27 06:01 | NUR ---
PT ADMIT THIS SHIFT TO ROOM 313, A/O, USES BSC, LOW MG AND K+, AM LABS TO BE DRAWN AFTER REPLACEMENT IV BAGS GIVEN. PT HAS UTI, HX OF RECENT COVID. CBG AC/HS.
[2021-02-27 09:16] LABS: BASOPHILS ABSOLUTE AUTO 0.07 K/mm3 (0.00-0.23); BASOPHILS PERCENT AUTO 1 % (0-2); EOSINOPHILS ABSOLUTE AUTO 0.26 K/mm3 (0.00-0.68); EOSINOPHILS PERCENT AUTO 2 % (0-6); Hemoglobin 14.3 g/dL (11.5-16.0); IMMATURE GRAN ABSOLUTE AUTO 0.06 K/mm3 (0.00-0.10); IMMATURE GRAN PERCENT AUTO 1 % (0-1); LYMPHOCYTES PERCENT AUTO 12 % (21-46); MONOCYTES ABSOLUTE AUTO 0.92 K/mm3 (0.16-1.47); MONOCYTES PERCENT AUTO 8 % (4-13); Mean Corpuscular HGB 32.6 pg (26.0-34.0); Mean Corpuscular HGB Conc 32.5 g/dL (31.5-36.5); Mean Corpuscular Volume 101 fL (80-100); Mean Platelet Volume 11.2 fL (9.1-12.4); NEUTROPHILS ABSOLUTE AUTO 8.67 K/mm3 (1.96-9.15); NEUTROPHILS PERCENT AUTO 77 % (41-73); Platelet Count 177 K/mm3 (150-400); RDW Coefficient Variation 14.6 % (11.7-14.2); RDW Standard Deviation 53.1 fL (35.1-46.3); Red Blood Cell Count 4.38 M/mm3 (3.80-5.20); White Blood Cell Count 11.28 K/mm3 (4.00-11.30)
[2021-02-27 09:37] LABS: Bun/Creatinine Ratio 30.4 (12.0-20.0); Calcium, Blood 7.8 mg/dL (8.5-10.1); Creatinine, Blood 1.02 mg/dL (0.40-1.00); Magnesium, Blood 1.8 mg/dL (1.6-2.4)
--- NOTE | 2021-02-27 18:26 | NUR ---
PATIENT IS ALERT AND ORIENTED AND COOPERATIVE WITH CARE. PATIENT TRANSFERS TO THE BSC INDEPENDENTLY. ON CONTINUOS PULSE OX WITH SATS ABOVE 90%. THE PATIENT'S DAUGHTER AND HER VISITED THIS AFTERNOON. NO C/O SOB OR NAUSEA. C/O BURNING WITH URINATION. URINE IS DARK ORANGE IN COLOR.
--- NOTE | 2021-02-27 18:29 | NUR ---
Spiritual care note: Mrs. Koch has a strong primitivo and good connection with adult ministries director/quaker. She admits she is tired of being ill, having only recently left the hospital after a long admission for Covid. 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 Their dtr, Micheline, lives nearby and is currently staying with her dad. Mrs. Koch responded well to prayer and spiritual encouragement. She reports hope for complete recovery. No concerns presented. She seems very fatigued. I will remain available.
--- NOTE | 2021-02-28 05:51 | NUR ---
PT IS A/O, UP TO BSC WITH STANDBY ASSIST AND FWW. PT RECIEVED NEW IV THIS SHIFT WITH 22 GAUGE IN RA AFTER IV BEGAN TO LEAK. PT WAS MEDICATED ONCE THIS SHIFT FOR NAUSEA. NARAG AC/HS.
[2021-02-28 06:27] LABS: Hematocrit 41.8 % (33.0-51.0); Hemoglobin 13.6 g/dL (11.5-16.0); Mean Corpuscular HGB 32.6 pg (26.0-34.0); Mean Corpuscular HGB Conc 32.5 g/dL (31.5-36.5); Mean Corpuscular Volume 100 fL (80-100); Mean Platelet Volume 11.2 fL (9.1-12.4); Platelet Count 169 K/mm3 (150-400); RDW Coefficient Variation 14.9 % (11.7-14.2); RDW Standard Deviation 53.1 fL (35.1-46.3); Red Blood Cell Count 4.17 M/mm3 (3.80-5.20); White Blood Cell Count 9.58 K/mm3 (4.00-11.30)
[2021-02-28 06:49] LABS: Bun/Creatinine Ratio 24.9 (12.0-20.0); Calcium, Blood 8.3 mg/dL (8.5-10.1); Creatinine, Blood 0.97 mg/dL (0.40-1.00); Magnesium, Blood 1.7 mg/dL (1.6-2.4); Potassium, Blood 4.3 mmol/L (3.5-5.5)
--- NOTE | 2021-02-28 17:00 | NUR ---
SHIFT SUMMARY- PT A/OX3, PLEASANT AND COOPERATIVE. PT SBA UP TO CHAIR/ BSC. LS DIMINISHED, ON RA. OCCASIONAL PRODUCTIVE COUGH OF CLEAR SPUTUM. PRN ZOFRAN GIVEN X1 FOR NAUSEA, BOTH PT AND DAUGHTER REPORT PT IS SENSITIVE TO FOODS. PT CHANGED TO ORAL ANTIBIOTICS FOR UTI. NO OTHER ACUTE CHANGES THIS SHIFT. POSSIBLE D/C HOME TOMORROW.
[2021-03-01 05:12] LABS: Hematocrit 41.3 % (33.0-51.0); Hemoglobin 13.2 g/dL (11.5-16.0); Mean Corpuscular HGB 31.8 pg (26.0-34.0); Mean Corpuscular Volume 100 fL (80-100); Mean Platelet Volume 11.2 fL (9.1-12.4); NRBC ABSOLUTE 0.02 K/mm3 (0.00-0.02); NRBC Auto 0.2 /100 WBC (0.0-0.2); Platelet Count 133 K/mm3 (150-400); RDW Coefficient Variation 15.3 % (11.7-14.2); RDW Standard Deviation 54.1 fL (35.1-46.3); Red Blood Cell Count 4.15 M/mm3 (3.80-5.20); White Blood Cell Count 8.28 K/mm3 (4.00-11.30)
[2021-03-01 05:43] LABS: Calcium, Blood 8.5 mg/dL (8.5-10.1); Potassium, Blood 4.8 mmol/L (3.5-5.5)
--- NOTE | 2021-03-01 06:17 | NUR ---
SHIFT SUMMARY PT HAD A MOSTLY UNEVENTFUL NIGHT. PT DID HAVE SOME NAUSEA THIS EVENING AFTER EATING SOME CREAM SOUP FOR DINNER. ZOFRAN GIVEN WITH LITTLE IMPROVEMENT. NEW ORDER FOR REGLAN. PT REMAINED ON RA. VITAL SIGNS STABLE. PT SLEPT OFF AN ON THROUGHOUT THE NIGHT. WILL CONTINUE TO MONITOR.
--- NOTE | 2021-03-01 15:08 | NUR ---
PT TO IMAGING FOR CT ABD.
--- NOTE | 2021-03-01 17:37 | NUR ---
SHIFT SUMMARY- PT A/OX3, 1 ASSIST OUT OF BED AND INTO CHAIR. PT WITH NAUSEA THIS AM WITH SMALL AMOUNT OF EMESIS, PRN ZOFRAN GIVEN. PT CONTINUES TO REPORT SENSITIVE TO FOODS, SPOKE WITH ASSISTANT PROGRAM MANAGER WHO HELPED PT PICK OUT BLAND MEALS. PO POTASSIUM STOPPED WELL. PT REPORTED RIGHT ABD TENDERNESS WITH PALPATION, ABD CT ORDERED. PT WITH LARGE LIQUID STOOL TODAY. PT DOES REPORT ABD SLIGHTLY BETTER AFTER. LS DIMINISHED, ON ROOM AIR. HR IRREG. NO OTHER ACUTE CHANGES THIS SHIFT.
--- NOTE | 2021-03-02 06:36 | NUR ---
SHIFT SUMMARY PT DENIED ANY NAUSEA THIS EVENING. 1 EPISODE OF DIARRHEA. PT REPORTS THAT ABD STILL HAS SOME TENDERNESS TO LLQ BUT IS MINIMAL. IV LEAKING AT END OF SHIFT. WILL SEE IF OKAY TO LEAVE OUT. NO ACUTE CHANGES THIS EVENING. WILL CONTINUE TO MONITOR AND REPORT TO DAY RN.
[2021-03-02] MEDS ORDERED: NITR100CA PO (11:07)
--- NOTE | 2021-03-02 14:15 | NUR ---
DISCHARGE SUMMARY PT DC'D @ APPROX 1410 VIA WHEELCHAIR BY [facility]. DAUGHTER, ARIN, WHO IS ALSO HELPING WITH AT HOME CARE WAS PRESENT WHEN DISCHARGE INSTRUCTIONS WERE DISCUSSED. HOME HEALTH TO FOLLOW UP WITH PT. NO IV TO BE REMOVED AT TIME OF DC. PT STATED SHE HAD ALL OF HER BELONGINGS. NEEDED RX FAXED TO [facility] PER PT REQUEST.
== END 2021-03-02 14:10 | disposition home health service (06) | DRG 872 ==
LOC: ER 15:07 → MEDS 22:15
PROVIDERS: Emergency Medicine; Internal Medicine; Nurse Practitioner Acute Care; ADMIT Internal Medicine
DX: A41.51 Sepsis due to Escherichia coli [E. coli] (principal); N39.0 Urinary tract infection, site not specified; E87.2 Acidosis; I50.32 Chronic diastolic (congestive) heart failure; J84.9 Interstitial pulmonary disease, unspecified; R65.20 Severe sepsis without septic shock; E86.0 Dehydration; Z88.1 Allergy status to other antibiotic agents; E11.9 Type 2 diabetes mellitus without complications; I11.0 Hypertensive heart disease with heart failure; Z86.16 Personal history of COVID-19; Z95.0 Presence of cardiac pacemaker; E87.6 Hypokalemia; E83.42 Hypomagnesemia; J47.9 Bronchiectasis, uncomplicated; E66.9 Obesity, unspecified; Z68.36 Body mass index [BMI] 36.0-36.9, adult; Z79.84 Long term (current) use of oral hypoglycemic drugs
CPT/HCPCS: 36415; 51798; 71045; 71250; 74176; 80048; 80053; 81001; 82947; 83605; 83735; 83880; 84132; 84145; 84484; 85025; 85027; 87040; 87077; 87086; 87186; 93005; 93010; 94762; 96365; 96367; 99285-25; A9270; A9270-GY; J0744; J2405; J3475; J3480; J7030; J7120

== ENCOUNTER → 2021-02-26 | Outpatient (CLI) | payer MEDICARE, OTHER ==
[~2021-02-26] MED LIST changes: +DYAZIDE 37.5-21 EACH PO; +Doxycycline Mo100 M1 PO; +FURO40 PO; +FUROSEMIDE40 MG PO; +KLOR-CON 1010 ME1 PO; +LEVAQUIN750 MG PO; +METFORMIN HCL500 M2 PO; +NITR100CA PO; +POTA10T PO; +VISBIOME 112.51 EACH PO; +WARF3 PO; +WARF6 PO; +XARELTO20 M1 PO
[2021-02-27 10:34] LABS: C DIFFICILE DNA NEGATIVE (Negative)
== END | disposition home or self-care (01) ==
LOC: LAB 16:47 → LAB SHORT 16:47
PROVIDERS: Family Medicine
DX: U07.1 COVID-19 (principal); R19.7 Diarrhea, unspecified
CPT/HCPCS: 87493

== ENCOUNTER 2021-03-07 12:11 | Inpatient (IN) | payer MEDICARE, OTHER ==
[~2021-03-07] VITALS: Ht 162.6 cm; Wt 93.9 kg
[~2021-03-07 12:11] MED LIST changes: +METFORMIN HCL500 M2 PO; +NITR100CA PO
[2021-03-07 12:56] LABS: BASOPHILS ABSOLUTE AUTO 0.04 K/mm3 (0.00-0.23); BASOPHILS PERCENT AUTO 1 % (0-2); EOSINOPHILS ABSOLUTE AUTO 0.57 K/mm3 (0.00-0.68); EOSINOPHILS PERCENT AUTO 8 % (0-6); Hematocrit 41.1 % (33.0-51.0); Hemoglobin 13.7 g/dL (11.5-16.0); IMMATURE GRAN ABSOLUTE AUTO 0.05 K/mm3 (0.00-0.10); IMMATURE GRAN PERCENT AUTO 1 % (0-1); LYMPHOCYTES ABSOLUTE AUTO 0.97 K/mm3 (0.84-5.20); LYMPHOCYTES PERCENT AUTO 14 % (21-46); MONOCYTES ABSOLUTE AUTO 0.73 K/mm3 (0.16-1.47); MONOCYTES PERCENT AUTO 11 % (4-13); Mean Corpuscular HGB 32.5 pg (26.0-34.0); Mean Corpuscular HGB Conc 33.3 g/dL (31.5-36.5); Mean Corpuscular Volume 98 fL (80-100); Mean Platelet Volume 10.9 fL (9.1-12.4); NEUTROPHILS ABSOLUTE AUTO 4.51 K/mm3 (1.96-9.15); NEUTROPHILS PERCENT AUTO 66 % (41-73); NRBC ABSOLUTE 0.02 K/mm3 (0.00-0.02); NRBC Auto 0.3 /100 WBC (0.0-0.2); Platelet Count 133 K/mm3 (150-400); RDW Coefficient Variation 16.7 % (11.7-14.2); RDW Standard Deviation 57.5 fL (35.1-46.3); Red Blood Cell Count 4.21 M/mm3 (3.80-5.20); White Blood Cell Count 6.87 K/mm3 (4.00-11.30)
[2021-03-07 13:19] LABS: Alanine Aminotransfer (ALT/SGP 15 U/L (12-78); Albumin, Blood 2.8 g/dL (3.4-5.0); Albumin/Globulin Ratio 0.8 (0.8-1.8); Alk Phos 79 U/L (50-136); Anion Gap 8 mmol/L (6-16); Aspartate Aminotrans (AST/SGOT 15 U/L (12-37); Bilirubin, Total 0.8 mg/dL (0.1-1.0); Blood Urea Nitrogen 15 mg/dL (8-24); Bun/Creatinine Ratio 20.2 (12.0-20.0); CO2, Blood 21 mmol/L (21-32); Calcium, Blood 8.6 mg/dL (8.5-10.1); Chloride, Blood 113 mmol/L (98-108); Creatinine, Blood 0.74 mg/dL (0.40-1.00); Globulin, Blood 3.5 g/dL (2.2-4.0); Glomerular Filtration Rate >60 (60-); Glucose, Blood 137 mg/dL (70-99); Potassium, Blood 4.1 mmol/L (3.5-5.5); Sodium, Blood 142 mmol/L (136-145); Total Protein, Blood 6.3 g/dL (6.4-8.2); Troponin I <0.015 ng/mL (0.000-0.040)
--- NOTE | 2021-03-07 18:24 | NUR ---
PT ARRIVED IN THE UNIT FROM [facility], REPORT RECEIVED FROM ARLIN WHITFIELD, PT WAS SLID TRANSFERRED TO PCU BED. PT IS HERE FOR AFIB RVR, ACCOMPANIED WITH DAUGHTER AT BEDSIDE. PT ON CARDIZEM GTT AT 5MG/HR UPON ARRIVAL HRR AFIB 120-140'S, GTT TURNED UP TO 10MG/HR, HRR NOW ON THE 110'S, PT DENIES CHEST PAIN/PRESSURE, BP SYSTOLIC 130-160'S, SATS ABOVE 90% ON RA, AFEBRILE. PT IS A SBA PER REPORT FOR TRANSFERS, WAS INSTRUCTED TO USE CALL LIGHT FOR HELP, ALERT AND ORIENTED X4 AT BASELINE. PT NOW EATING DINNER NO ISSUES. WILL REPORT TO ONCOMING SHIFT
[2021-03-08 05:12] LABS: Alanine Aminotransfer (ALT/SGP 19 U/L (12-78); Albumin/Globulin Ratio 0.8 (0.8-1.8); Alk Phos 89 U/L (50-136); Anion Gap 7 mmol/L (6-16); Aspartate Aminotrans (AST/SGOT 18 U/L (12-37); Bilirubin, Total 1.2 mg/dL (0.1-1.0); Blood Urea Nitrogen 11 mg/dL (8-24); Bun/Creatinine Ratio 15.3 (12.0-20.0); CO2, Blood 27 mmol/L (21-32); Calcium, Blood 8.9 mg/dL (8.5-10.1); Chloride, Blood 108 mmol/L (98-108); Creatinine, Blood 0.72 mg/dL (0.40-1.00); Glomerular Filtration Rate >60 (60-); Glucose, Blood 84 mg/dL (70-99); Potassium, Blood 3.5 mmol/L (3.5-5.5); Sodium, Blood 142 mmol/L (136-145)
--- NOTE | 2021-03-08 06:07 | NUR ---
SHIFT SUMMARY PATIENT PLEASENT AND COOPERATIVE THROUGHOUT THE NIGHT. PATIENT DIURESING WELL. PATIENT APPEARS TO BE ABLE TO MOVE SELF ABOUT IN BED. PATIENT APPEARED TO SLEEP WELL ON AND OFF LAST NIGHT. VITAL SIGNS CHARTED. WILL CONTINUE CURRENT PLAN OF CARE AND REPORT TO ONCOMING RN.
--- NOTE | 2021-03-08 10:30 | NUR ---
Attempted to see. Pt up to commode with staff. Will try again later.
--- NOTE | 2021-03-08 11:24 | NUR ---
Attempted to see again. Pt with multiple Drs in room rounding. Will try again this afternoon at staff's request to review advanced care planning and POLST completion with pt.
--- NOTE | 2021-03-08 13:10 | NUR ---
INITIAL PAL CARE VISIT - Referral received from staff to discuss AD/POLST completion and advanced care planning. Pt was sitting in chair finishing her lunch when I arrived. She had eaten very little off of tray. Pt has had several hospital admissions recently and this visit is due to a-fib, RVR, palpitations and weakness at home. She is currently on home health services per notes. Pt and abigail initially were giving pt two different beta blockers and when pt became bradycardic, Dr and RN recommended stoping metoprolol and pt went without for a number of days. Pt was recently hospitalized for urosepsis and prior to that for covid pneumonia. On admission, pt states she would like to be a full code but also expressed a desire to speak to someone regarding that and completing an AD/POLST. She states she lives with her , who is medically frail also and she states worse off than pt due to cognitive and memory deficits. Pt acknowledges that thinking about these things for herself and also being the decision maker for her is overwhelming. She would like to complete a POLST with her PCP- Dr Zachariah Peralta, for herself & her . I reviewed some information re: possible consequences of CPR and pt verbalized understanding of risks of aspiration pneumonia and hypoxic brain injury, increased debility s/p CPR. We reviewed and I gave her written information on advanced care planning booklet, Hard Choices for [place] People. At her request, I gave her two POLST forms for her to take to PCP. She states, her abigailMicheline [phone] is her surrogate health care decision maker. This was added to her POLST form. Her abigail does not live locally but lives in [place]. She came to help pt after d/c from hospital. Pal Care will return if pt wishes. She did not want to complete the POLST today but I offered to return if she changed her mind. She confirmed that at this time she will remain a full code. She'd like to talk with her abigail and PCP further about that.
--- NOTE | 2021-03-08 14:05 | NUR ---
Spiritual care visit conducted. Patient is sitting on a chair and alert. Patient tells me about her medical history and the gains that she has made so far with this hospitalization. Patient then shares about her 's severe dementia and the difficulties of daily living as she acts as his caregiver. Patient then talks at length about her Sikhism primitivo, her peace about and her trust in God's plan for each day she is alive. Patient, although very pleasant is admittedly feeling the weight of her situation. I open a dialogue about filling out a POLST but patieninsists that because her and herself share the same doctor that they will fill one out at her doctor's office. She also mentions that she attends [facility] and has felt the prayers and support of the those folks. I normalize her experience, reinforce helpful attitudes and practices and provide recitation of scripture, pastoral personal counselor and prayer. Patient responds well to the prayer and recitation of scripture and shows signs of being encouraged in her primitivo and being uplifted. I will continue to remain available to patient and family.
--- NOTE | 2021-03-08 14:36 | NUR ---
of pt here at the bedside, escorted by the pt's daughter, who then left.
--- NOTE | 2021-03-08 19:28 | NUR ---
1730 Pt c/o nausea. Attempted to give zofran, but IV is occluded and leaking from the insertion site. Holding oral meds until the IV access can be re-established and the pt's nausea is resolved.
--- NOTE | 2021-03-08 19:38 | NUR ---
SUMMARY: The pt has had no complaints today, except for poor appetite, and then c/o nausea after eating dinner. She has been OOB to the chair for her meals and for toileting today. Sat up in the recliner and was able to transfer with one person minimal assistance. Alert, oriented and cooperative. Cardizem gtt was turned off at 0930 this morning, after Toprol XL administered p.o. at 0815. Atrial fibrillation consistently by telemetry monitoring, rate 90-110 for the most part, 122 with activity, but not sustained. Oxygen was weaned off this morning, and she required no supplemental O2 today, continuous spo2 was 90-92% on room air.
--- NOTE | 2021-03-09 06:28 | NUR ---
SHIFT SUMMARY PATIENT PLEASENT AND COOPERATIVE THROUGHOUT THE NIGHT. PATIENT APPEARED TO SLEEP WELL LAST NIGHT. PATIENT APPEARS TO BE ABLE TO MOVE SELF ABOUT WELL IN BED. VITAL SIGNS CHARTED. WILL CONTINUE CURRENT PLAN OF CARE AND REPORT TO ONCOMING RN.
[2021-03-09 09:59] LABS: Albumin, Blood 2.6 g/dL (3.4-5.0); Anion Gap 6 mmol/L (6-16); Blood Urea Nitrogen 16 mg/dL (8-24); Bun/Creatinine Ratio 19.3 (12.0-20.0); CO2, Blood 27 mmol/L (21-32); Calcium, Blood 8.7 mg/dL (8.5-10.1); Chloride, Blood 107 mmol/L (98-108); Creatinine, Blood 0.83 mg/dL (0.40-1.00); Glomerular Filtration Rate >60 (60-); Glucose, Blood 171 mg/dL (70-99); Magnesium, Blood 1.8 mg/dL (1.6-2.4); Phosphorus, Blood 3.5 mg/dL (2.5-4.9); Sodium, Blood 140 mmol/L (136-145)
[2021-03-09] MEDS ORDERED: FURO40 PO (13:20)
--- NOTE | 2021-03-09 17:26 | NUR ---
HORTICULTURAL FARM MANAGER WORKING WITH JOSEF ROCHA RN. ASSUMED CARE FOR PATIENT AROUND 0700. PATIENT IS ALERT AND ORIENTED X4. PATIENT IS ON TELE SHOWING AFIB WITH A RATE RANGING FROM 100-120'S AT REST AND >120'S ON EXERTION. PT WAS ON RA THIS MORNING BUT WAS PUT ON 1L AFTER HER SATURATION WERE BELOW 90% WITH EXERTION. RESPIRATORY THERAPY WAS CONSULTED TO DO A HOME O2 EVAL AND RECOMMENDED 1L AT HOME. PT IS CURRENTLY SITTING UP IN CHAIR RESTING COMFORTABLY ON 1L NC WITH O2 >92%. THE PATIENT DID HAVE ONE LOOSE BOWEL MOVEMENT DURING SHIFT. NO ABD PAIN. PATIENT IS ABLE TO STAND UP AND TRANSFER WITH SBA. PATIENT WAS UP FOR DISCHARGE TODAY BUT DISCHARGE WAS DISCONTINUED UNTIL RE-EVALUATION TOMORROW. PT REPORTED THAT SHE HAS NOT BEEN ABLE TO GET UP AND WALK AROUND WITHOUT FEELING SHORT OF BREATHING AND TACHYCARDIAC FOR ABOUT 1 MONTH, DAUGHTER IS AT BEDSIDE AND STATES TAHT IT HAS BEEN ABOUT 5 MONTHS SINCE THE PATIENT HAS BEEN ABLE TO GET AROUND WITHOUT SOB. PT IS SITTING UP IN CHAIR WATCHING TV. NO NEW COMPLAINTS AT THIS TIME. CALL LIGHT IN REACH.
--- NOTE | 2021-03-09 18:23 | NUR ---
STUDENT CHARTING VERIFIED BY THIS RN. AFTER SPEAKING TO DR. KINNEY REGARDING INCREASED HR AND DECREASED SATS WITH EXCERTION PT TO STAY IN HOSPITAL TONIGHT. [facility] DELIVERED HOME 02 AND IS AT BEDSIDE. UP TO RECLINER AT THIS TIME, REPOSITIONS SELF IN BED DURING SHIFT NEEDED. 02 NC AT 1L, VSS, WILL CONTINUE TO MONITOR AND TREAT UNTIL CHANGE OF SHIFT.
--- NOTE | 2021-03-10 04:26 | NUR ---
SHIFT SUMMARY PT WAS ALERT, ORIENTED, AND COOPERATIVE WITH CARE. PT WAS ON 1.5LPM VIA NC T/O THE NIGHT WITH O2 SATS >94%. MINIMAL DECREASE IN O2 SATS WITH AMBULATION, LOW 90'S. HR 80-100'S, CONTROLLED WITH MINIMAL ELEVATION DURING AMBULATION. NO PRN MEDICATIONS NEEDED TO CONTROL HR. BP STABLE 108-124 SYSTOLIC. R RADIAL SITE WAS UNCHANGED T/O THE SHIFT, NO DISCOLORATION, PAIN, OR SWELLING. TR BAND REMOVED BEFORE START OF SHIFT, ARM BOARD IN PLACE T/O THE NIGHT. PT STATES SHE IS DOING MUCH BETTER AND READY TO GO HOME. PT HAD A QUIET UNEVENTFUL NIGHT.
[2021-03-10 04:48] LABS: Anion Gap 6 mmol/L (6-16); Blood Urea Nitrogen 16 mg/dL (8-24); Bun/Creatinine Ratio 19.4 (12.0-20.0); CO2, Blood 30 mmol/L (21-32); Calcium, Blood 8.4 mg/dL (8.5-10.1); Chloride, Blood 103 mmol/L (98-108); Creatinine, Blood 0.83 mg/dL (0.40-1.00); Glomerular Filtration Rate >60 (60-); Glucose, Blood 93 mg/dL (70-99); Magnesium, Blood 1.8 mg/dL (1.6-2.4); Potassium, Blood 3.5 mmol/L (3.5-5.5); Sodium, Blood 139 mmol/L (136-145)
--- NOTE | 2021-03-10 06:30 | NUR ---
SHIFT SUMMARY PT WAS ALERT, ORIENTED, AND COOPERATIVE WITH CARE. PT WAS ON 1.5LPM VIA NC T/O THE NIGHT WITH O2 SATS >94%. MINIMAL DECREASE IN O2 SATS WITH AMBULATION, LOW 90'S. HR 80-100'S, AFIB CONTROLLED WITH MINIMAL ELEVATION DURING AMBULATION. NO PRN MEDICATIONS NEEDED TO CONTROL HR. BP STABLE 108-124 SYSTOLIC. PT ABLE TO AMBULATE TO BS. PT STATED NO CP OR PRESSURE. PT HAD A QUIET UNEVENTFUL NIGHT AND STATES SHE IS READY FOR DISCHARGE.
--- NOTE | 2021-03-10 07:51 | NUR ---
pt laying in bed awake, a/ox3, pleasant and cooperative with care, follows commands well, denies complaints states her breathing is much better, she still sounds dyspnic while speaking, lungs are clear t/o, a bit dim in bases, is currently on 1.5 liters 02 via n/c, has a productive cough of yellow sputum, hrirr, tele in place running afib in the 80's, 2-3+edema to b/l le, ppp+1, cap refill <3sec, vs stable, afebrile, iv site to right fa, site is clear and patent, btx4, hypoactive, reports voids without diff, skin c/w/d, maew, weak, lashawn, call light in reach, am care done, up to chair for breakfast.
[2021-03-10] MEDS ORDERED: GUAI600T33 PO (13:08)
--- NOTE | 2021-03-10 15:00 | NUR ---
pt has been discharged to home, went over discharge instructions with her and daughterin law, did some education on taking a pulse, and explained the difference of the metoprolol long acting vs short. she states she understood. iv removed intact. pt has all belongings. left via wheelchair with cash analyst in attendence.
== END 2021-03-10 15:30 | disposition home or self-care (01) | DRG 308 ==
LOC: ER 12:11 → ERHOLD 15:58 → PCU 17:00
PROVIDERS: Emergency Medicine; Family Medicine; Internal Medicine; ADMIT Internal Medicine
DX: I48.91 Unspecified atrial fibrillation (principal); I50.33 Acute on chronic diastolic (congestive) heart failure; Z68.41 Body mass index [BMI] 40.0-44.9, adult; I11.0 Hypertensive heart disease with heart failure; Z86.16 Personal history of COVID-19; E11.9 Type 2 diabetes mellitus without complications; J45.909 Unspecified asthma, uncomplicated; K21.9 Gastro-esophageal reflux disease without esophagitis; Z95.0 Presence of cardiac pacemaker; Z90.49 Acquired absence of other specified parts of digestive tract; Z98.890 Other specified postprocedural states; Z79.899 Other long term (current) drug therapy; Z88.0 Allergy status to penicillin; Z88.8 Allergy status to other drugs, medicaments and biological substances; Z88.1 Allergy status to other antibiotic agents; Z91.041 Radiographic dye allergy status; Z79.84 Long term (current) use of oral hypoglycemic drugs
CPT/HCPCS: 36415; 71045; 80048; 80053; 80069; 82947; 83735; 83880; 84484; 85025; 93005; 93010; 94761; 94762; 96374; 96375; 99285-25; A9270; A9270-GY; J1940; J2405

== ENCOUNTER 2021-03-17 10:17 | Inpatient (IN) | payer MEDICARE, OTHER ==
[~2021-03-17] VITALS: Ht 157.5 cm; Wt 98.8 kg
[~2021-03-17 10:17] MED LIST changes: +GUAI600T33 PO
[2021-03-17 11:31] LABS: BASOPHILS ABSOLUTE AUTO 0.07 K/mm3 (0.00-0.23); BASOPHILS PERCENT AUTO 1 % (0-2); EOSINOPHILS ABSOLUTE AUTO 0.02 K/mm3 (0.00-0.68); EOSINOPHILS PERCENT AUTO 0 % (0-6); Hematocrit 49.4 % (33.0-51.0); Hemoglobin 15.8 g/dL (11.5-16.0); IMMATURE GRAN ABSOLUTE AUTO 0.14 K/mm3 (0.00-0.10); IMMATURE GRAN PERCENT AUTO 1 % (0-1); LYMPHOCYTES ABSOLUTE AUTO 1.19 K/mm3 (0.84-5.20); LYMPHOCYTES PERCENT AUTO 10 % (21-46); MONOCYTES ABSOLUTE AUTO 0.84 K/mm3 (0.16-1.47); MONOCYTES PERCENT AUTO 7 % (4-13); Mean Corpuscular Volume 100 fL (80-100); Mean Platelet Volume 11.1 fL (9.1-12.4); NEUTROPHILS ABSOLUTE AUTO 9.81 K/mm3 (1.96-9.15); NEUTROPHILS PERCENT AUTO 81 % (41-73); NRBC ABSOLUTE 0.02 K/mm3 (0.00-0.02); NRBC Auto 0.2 /100 WBC (0.0-0.2); Platelet Count 208 K/mm3 (150-400); RDW Coefficient Variation 15.4 % (11.7-14.2); RDW Standard Deviation 57.3 fL (35.1-46.3); Red Blood Cell Count 4.94 M/mm3 (3.80-5.20); White Blood Cell Count 12.07 K/mm3 (4.00-11.30)
[2021-03-17 11:54] LABS: Albumin, Blood 2.8 g/dL (3.4-5.0); Albumin/Globulin Ratio 0.6 (0.8-1.8); Bilirubin, Total 0.8 mg/dL (0.1-1.0); Bun/Creatinine Ratio 16.7 (12.0-20.0); Calcium, Blood 9.1 mg/dL (8.5-10.1); Creatinine, Blood 2.52 mg/dL (0.40-1.00); Globulin, Blood 4.7 g/dL (2.2-4.0); Potassium, Blood 4.6 mmol/L (3.5-5.5); Total Protein, Blood 7.5 g/dL (6.4-8.2)
[2021-03-17] MEDS ORDERED: TRAM50 PO (12:03)
[2021-03-17 13:08] LABS: Source, Urine Clean Catch
[2021-03-17 13:18] LABS: Appearance, Urine Hazy (Clear); Blood, Urine 4+ (Neg); Color, Urine Amber (P-Yellow); Glucose Qualitative, Urine Neg (Neg); Ketones, Urine 1+ (Neg); Leukocyte Esterase, Urine 2+ (Neg); Nitrite, Urine Pos (Neg); Protein, Urine 3+ (Neg); Specific Gravity, Urine 1.025 (1.003-1.022); Urobilinogen, Urine 1+ (Normal)
[2021-03-17 13:58] LABS: Bilirubin, Urine 2+ (Neg)
[2021-03-17 14:00] LABS: White Blood Cells, Urine 50-100 /hpf (0-5)
[2021-03-17 14:01] LABS: Bacteria Many /hpf; Squamous Epithelial Cells Few /hpf (Few)
[2021-03-17 14:02] LABS: Transitional Epithelial Cells Few /hpf (0-Rare)
--- NOTE | 2021-03-17 16:08 | NUR ---
PT ARRIVED FROM ER AT APPROXIMATELY 1655. PT IS ALERT AND ORIENTED. PT REPORTS HER PAIN IS MANAGED WITH PAIN MEDICATION GIVEN IN ER. PT'S FAMILY IS PRESENT AT TIME OF ARRIVAL. PT DENIES CHEST PAIN AND SHORTNESS OF BREATH. TELE MONITOR HYACINTH REPORTED THAT PT'S HR IS AFIB BETWEEN 105 AND 150, DR. KENNEDY NOTIFIED. PT APPEARS ASYMPTOMATIC AT THIS TIME. WILL CONTINUE TO MONITOR.
--- NOTE | 2021-03-17 20:28 | NUR ---
SHIFT SUMMARY NO CHANGES TO REPORT SINCE PT ARRIVED TO THE UNIT. REPORT GIVEN TO DANILO WHITFIELD.
--- NOTE | 2021-03-18 05:19 | NUR ---
SHIFT SUMMARY A/O, ABLE TO MAKE NEEDS KNOWN. COOPERATIVE WITH CARE. CALLS AND ANSWERS QUESTIONS APPROPRIATELY. C/O PAIN/DISCOMFORT; NEW ORDERS FROM ON-CALL PROVIDER FOR PAIN MGMT. MEDICATED PER NEW ORDERS. DID NOT GET MUCH REST OVER NIGHT UNTIL AFTER PAIN MORE CONTROLLED. CONTINUES WITH IV HYDRATION X2 BAGS; SECOND BAG RUNNING. TELE UNCONTROLLED AFIB; ATTENDING AWARE. BED REMAINS IN LOWEST POSITION. CALL LIGHT AND BELONGINGS WITHIN REACH. CONTINUE WITH CURRENT PLAN OF CARE. REPORT TO ONCOMING RN.
--- NOTE | 2021-03-18 07:25 | NUR ---
PT CALLED THIS AM WITH COMPLAINTS OF NAUSEA. PT HAD SMALL AMT LIQUID BROWN EMESIS IN BAG. PT PALE. BP TRENDING LOW. RETAIL AND RESTAURANT REPORTS HR UP INTO THE 150'S-160'S. POOR URINE OUTPUT. WILL MEDICATE FOR NAUSEA AND GIVE AM METOPROLOL. WILL HOLD OTHER AM MEDS UNTIL NAUSEA AND VOMITTING MANAGED. WILL CONTINUE TO MONITOR CLOSELY.
[2021-03-18 07:41] LABS: Hematocrit 44.2 % (33.0-51.0); Hemoglobin 14.5 g/dL (11.5-16.0); Mean Corpuscular HGB 32.1 pg (26.0-34.0); Mean Corpuscular HGB Conc 32.8 g/dL (31.5-36.5); Mean Corpuscular Volume 98 fL (80-100); Mean Platelet Volume 11.3 fL (9.1-12.4); Platelet Count 213 K/mm3 (150-400); RDW Coefficient Variation 15.7 % (11.7-14.2); RDW Standard Deviation 55.9 fL (35.1-46.3); Red Blood Cell Count 4.52 M/mm3 (3.80-5.20); White Blood Cell Count 11.52 K/mm3 (4.00-11.30)
[2021-03-18 07:52] LABS: Bun/Creatinine Ratio 15.3 (12.0-20.0); Creatinine, Blood 2.94 mg/dL (0.40-1.00); Magnesium, Blood 1.8 mg/dL (1.6-2.4); Phosphorus, Blood 5.7 mg/dL (2.5-4.9); Potassium, Blood 4.4 mmol/L (3.5-5.5)
--- NOTE | 2021-03-18 13:25 | NUR ---
HR: PT CONTINUES TO HAVE BOUTS OF NAUSEA AND DRY HEAVING. HR WILL DROP TO 40'S AND THEN INCREASE TO 160'S PER SOFT WATER MECHANIC. HR IN TEENS TO 140'S AT REST. WILL MEDICATE FOR NAUSEA ABLE AND CONTINUE TO MONITOR HR.
[2021-03-18 14:50] LABS: Albumin, Blood 2.3 g/dL (3.4-5.0); Anion Gap 11 mmol/L (6-16); Blood Urea Nitrogen 49 mg/dL (8-24); Bun/Creatinine Ratio 16.8 (12.0-20.0); CO2, Blood 22 mmol/L (21-32); Calcium, Blood 7.7 mg/dL (8.5-10.1); Chloride, Blood 103 mmol/L (98-108); Creatinine, Blood 2.92 mg/dL (0.40-1.00); Glomerular Filtration Rate 17 (60-); Glucose, Blood 136 mg/dL (70-99); Phosphorus, Blood 5.9 mg/dL (2.5-4.9); Potassium, Blood 4.5 mmol/L (3.5-5.5); Sodium, Blood 136 mmol/L (136-145)
--- NOTE | 2021-03-18 18:28 | NUR ---
PT HAS BEEN NAUSEATED T/O SHIFT. MEDICATED NEEDED. PT HAS HAD SMALL AMT EMESIS THAT IS DARK BROWN IN COLOR. POOR INTAKE. CONT IV FLUIDS ORDERED. BOLUS X1 THIS AM. NO BM SINCE 03-14, CONT SCHEDULED STOOL SOFTENERS. PT ONLY HAD 225CC IN GUPTA THIS SHIFT. CRACKLES IN BASES. PT ON 2L O2. PT HAS OCCASIONAL COMPLAINTS OF SOB. TELE AFIB IN THE TEENS TO 160'S. PT UP TO CHAIR X1 WITH THERAPY TODAY, VERY WEAK AND DECONDITIONED. PAIN MANAGED WITH SCHEDULED MEDS.
[2021-03-19 05:37] LABS: Albumin, Blood 2.1 g/dL (3.4-5.0); Anion Gap 11 mmol/L (6-16); Blood Urea Nitrogen 48 mg/dL (8-24); Bun/Creatinine Ratio 15.6 (12.0-20.0); CO2, Blood 19 mmol/L (21-32); Calcium, Blood 7.5 mg/dL (8.5-10.1); Chloride, Blood 106 mmol/L (98-108); Creatinine, Blood 3.08 mg/dL (0.40-1.00); Glomerular Filtration Rate 16 (60-); Glucose, Blood 98 mg/dL (70-99); Phosphorus, Blood 5.7 mg/dL (2.5-4.9); Potassium, Blood 4.9 mmol/L (3.5-5.5); Sodium, Blood 136 mmol/L (136-145)
--- NOTE | 2021-03-19 06:13 | NUR ---
DECORATIVE ENGRAVER SUMMARY NO ACUTE CHANGES THIS SHIFT. PT AAOX4 AND PLEASANT. MEDICATED FOR BACK PAIN X1 WITH TRAMADOL AND X1 WITH TYLENOL. PT CONTINUES TO BE NAUSEATED AT TIMES, MEDICATED WITH ZOFRAN X2 PER EMAR. URINE OUTPUT AROUND 250 ML THIS SHIFT. VSS, WILL CONTINUE TO MONITOR.
--- NOTE | 2021-03-19 12:51 | NUR ---
Spiritual care visit conducted. Patient tells me about her symptoms then talks at length about the struggles every household in her family is having and bout the over 50 people at her [facility] who have had COVID-19. She also shares about how she asked Eduardo into her heart when she was 13yrs old and that he has been with her ever since. She leans into God in these stretching times. I listen empathically and provide scripture recitation and prayer. Patient displays evidence of being encouraged in her primitivo. Spiritual care will remain available
--- NOTE | 2021-03-19 17:19 | NUR ---
Shift Summary AOx4, pleasant and cooperative with care. Up c 1p mod assist, back brace on during activity, FWW. Dinero confirmed continued need for strict I/O with Dr. Heike Napoles, remains patent and draining though output is minimal despite continuous NS infusion. Tolerating PO well, minimal nausea and scant green emesis. Medicated numerous times for lower back pain per EMAR with some relief. 2L O2, respirations E/U. Tele: Afib 119. WCTM and report to oncoming RN.
[2021-03-20 04:42] LABS: BASOPHILS ABSOLUTE AUTO 0.06 K/mm3 (0.00-0.23); BASOPHILS PERCENT AUTO 1 % (0-2); EOSINOPHILS ABSOLUTE AUTO 0.06 K/mm3 (0.00-0.68); EOSINOPHILS PERCENT AUTO 1 % (0-6); Hematocrit 43.7 % (33.0-51.0); IMMATURE GRAN ABSOLUTE AUTO 0.24 K/mm3 (0.00-0.10); IMMATURE GRAN PERCENT AUTO 3 % (0-1); LYMPHOCYTES ABSOLUTE AUTO 1.62 K/mm3 (0.84-5.20); LYMPHOCYTES PERCENT AUTO 18 % (21-46); MONOCYTES ABSOLUTE AUTO 0.94 K/mm3 (0.16-1.47); MONOCYTES PERCENT AUTO 11 % (4-13); Mean Corpuscular HGB 32.2 pg (26.0-34.0); Mean Corpuscular Volume 101 fL (80-100); Mean Platelet Volume 10.9 fL (9.1-12.4); NEUTROPHILS ABSOLUTE AUTO 6.02 K/mm3 (1.96-9.15); NEUTROPHILS PERCENT AUTO 67 % (41-73); NRBC ABSOLUTE 0.07 K/mm3 (0.00-0.02); NRBC Auto 0.8 /100 WBC (0.0-0.2); Platelet Count 235 K/mm3 (150-400); RDW Coefficient Variation 15.7 % (11.7-14.2); RDW Standard Deviation 56.4 fL (35.1-46.3); Red Blood Cell Count 4.35 M/mm3 (3.80-5.20); White Blood Cell Count 8.94 K/mm3 (4.00-11.30)
[2021-03-20 04:59] LABS: Albumin, Blood 2.4 g/dL (3.4-5.0); Anion Gap 9 mmol/L (6-16); Blood Urea Nitrogen 56 mg/dL (8-24); Bun/Creatinine Ratio 16.3 (12.0-20.0); CO2, Blood 21 mmol/L (21-32); Calcium, Blood 8.2 mg/dL (8.5-10.1); Chloride, Blood 107 mmol/L (98-108); Creatinine, Blood 3.43 mg/dL (0.40-1.00); Glomerular Filtration Rate 14 (60-); Glucose, Blood 109 mg/dL (70-99); Magnesium, Blood 2.1 mg/dL (1.6-2.4); Phosphorus, Blood 6.4 mg/dL (2.5-4.9); Potassium, Blood 4.6 mmol/L (3.5-5.5); Sodium, Blood 137 mmol/L (136-145)
--- NOTE | 2021-03-20 06:13 | NUR ---
SHIFT SUMMARY AOX4. VSS. TELE AFIB LOW 100'S. NAUSEATED, HAD SMALL AMOUNT EMESIS ORANGISH BROWN IN COLOR c BROWN FLAKES. MEDICATED 2X c ZOFRAN. REPORTS NO BM IN 6 DAYS OF TODAY, STOOL SOFTENERS GIVEN, PRUNE JUICE GIVEN, STILL NO BM. VERY LITTLE PO INTAKE SINCE NAUSEATED. ABD TENDER TO PALPATION. ACTIVE BT. REPORTS 5/10 PAIN IN BACK, MEDICATED 1X c SCHEDULED TRAMADOL, STATED PAIN RELIEF. ONLY 200ML CLOUDY ORANGE URINE OUTPUT THIS SHIFT, FLUSHED GUPTA-PATENT & DRAINING, BLADDER SCAN TO MAKE SURE GUPTA WORKING-SHOWED 0ML IN BLADDER. LUNGS HAVE CRACKLES IN BASES, SPO2 >90% ON 2L O2 (BASELINE). CALL LIGHT IN REACH & PT ABLE TO MAKE NEEDS KNOWN. WILL MONITOR.
--- NOTE | 2021-03-20 16:35 | NUR ---
Shift Summary A/Ox4, pleasant and cooperative. Worked with PT/OT, tolerating sitting in chair. Back brace with activity. Medicated per EMAR for RLQ and back pain with some relief. Appetite is poor, but patient continues to attempt eating. Patient appears swollen in abdomen and extremities. One time water enema given without result. 24 hour urine collection started approx 0730 this am. Minimal emesis right after eating, looks like food particles, white/green colored. Tele: Afib 125, medicate with metoprolol succinate per EMAR. Dinero patent and draining, minimal output noted. One dose of IV lasix given. Tachycardia, otherwise VSS. 2L O2. Awaiting KUB XR-abdomen. WCTM.
[2021-03-21 05:14] LABS: BASOPHILS ABSOLUTE AUTO 0.04 K/mm3 (0.00-0.23); BASOPHILS PERCENT AUTO 1 % (0-2); EOSINOPHILS ABSOLUTE AUTO 0.09 K/mm3 (0.00-0.68); EOSINOPHILS PERCENT AUTO 1 % (0-6); Hematocrit 41.8 % (33.0-51.0); Hemoglobin 13.3 g/dL (11.5-16.0); IMMATURE GRAN ABSOLUTE AUTO 0.16 K/mm3 (0.00-0.10); IMMATURE GRAN PERCENT AUTO 2 % (0-1); LYMPHOCYTES ABSOLUTE AUTO 1.52 K/mm3 (0.84-5.20); LYMPHOCYTES PERCENT AUTO 17 % (21-46); MONOCYTES PERCENT AUTO 8 % (4-13); Mean Corpuscular HGB 31.4 pg (26.0-34.0); Mean Corpuscular HGB Conc 31.8 g/dL (31.5-36.5); Mean Corpuscular Volume 99 fL (80-100); Mean Platelet Volume 10.7 fL (9.1-12.4); NEUTROPHILS ABSOLUTE AUTO 6.26 K/mm3 (1.96-9.15); NEUTROPHILS PERCENT AUTO 71 % (41-73); NRBC ABSOLUTE 0.05 K/mm3 (0.00-0.02); NRBC Auto 0.6 /100 WBC (0.0-0.2); Platelet Count 261 K/mm3 (150-400); RDW Coefficient Variation 15.9 % (11.7-14.2); RDW Standard Deviation 56.1 fL (35.1-46.3); Red Blood Cell Count 4.24 M/mm3 (3.80-5.20); White Blood Cell Count 8.77 K/mm3 (4.00-11.30)
--- NOTE | 2021-03-21 05:34 | NUR ---
SHIFT SUMMARY AOX4. SLOW TO RESPOND. VSS. TELE AFIB @110. REPORTED NAUSEA, MEDICATED 1X c ZOFRAN, HAD RELIEF. ABD DISTENDED, TENDER RLQ 6/10 FOR PAIN-MEDICATED c SCHEDULED TRAMADOL & 1X c 25MCG FENT, STATED RELIEF. NO BM IN 7 DAYS OF TODAY, SENNA, COLACE & MIRALAX GIVEN. PT HAD ABD XRAY-NO RESULTS YET. GUPTA PATENT & DRAINING, VERY LITTLE URINE OUTPUT. 24HR URINE IN PROCESS ENDS @0740 THIS AM, WILL INFORM ONCOMING NURSE. LUNGS HAVE CRACKLES IN BASES, REPORTS OCCASIONAL DYSPNEA. CALL LIGHT IN REACH & PT ABLE TO MAKE NEEDS KNOWN. WILL MONITOR.
[2021-03-21 05:43] LABS: Magnesium, Blood 2.2 mg/dL (1.6-2.4); Uric Acid, Blood 10.3 mg/dL (2.6-6.0)
[2021-03-21 05:44] LABS: Albumin, Blood 2.4 g/dL (3.4-5.0); Albumin/Globulin Ratio 0.6 (0.8-1.8); Bilirubin, Direct 0.2 mg/dL (0.0-0.3); Bilirubin, Indirect 0.2 mg/dL (0.1-0.7); Bilirubin, Total 0.4 mg/dL (0.1-1.0); Bun/Creatinine Ratio 17.2 (12.0-20.0); Calcium, Blood 8.5 mg/dL (8.5-10.1); Creatinine, Blood 3.26 mg/dL (0.40-1.00); Globulin, Blood 3.7 g/dL (2.2-4.0); Phosphorus, Blood 5.5 mg/dL (2.5-4.9); Potassium, Blood 4.2 mmol/L (3.5-5.5); Total Protein, Blood 6.1 g/dL (6.4-8.2)
[2021-03-21 11:47] LABS: Protein, Urine Quantitative 85.1 mg/dL (0.0-11.9)
--- NOTE | 2021-03-21 14:46 | NUR ---
PT TO CT AT 1440
--- NOTE | 2021-03-21 17:08 | NUR ---
PT PLEASANT TODAY. STILL BARELY EATING AND SOME SPITTING IT BACK UP PER PT. THIS GIA, I AM TRYING ZOFRAN PRIOR TO DINNER. WILL SEE IF IT HELPS. I SEE ABOUT 450 IN URINE BAG AT THIS TIME. NO NEW CONCERNS AT THIS MOMENT. DID GET CT OF ABD TODAY. STATES NO MAJOR CHANGES. BED IN LOW POSITION, CALL LITE IN REACH, CALLS APPROP
--- NOTE | 2021-03-21 18:54 | NUR ---
Spiritual care note: Mrs. Koch has been hospitalized four times in the past four weeks. She appears weak. According to RN she has had difficulty eating. She spoke about her love for her children and appreciates the fact that her dtr is helping out at home b/c Mr. Koch has advanced dementia. She was appreciative of prayer and theraputic listening. Code status should probably be re-addressed. At the very least, a POC going forward. I will remain available.
--- NOTE | 2021-03-22 04:32 | NUR ---
SHIFT SUMMARY S/P ACUTE ON CHRONIC KIDNEY INJURY W/ UTI, A/O, VSS, TOLERATIN PO IN SMALL AMT R/T NAUSEA, 2 PERSON ASSIST WHEN UP W/ FWW/BACK BRACE, PAIN WELL CONTROLLED PER EMAR, OCCASIONAL SOB INCREASING W/ EXERTION BUT NO DIZZINESS OR LIGHTHEADEDNESS. NO ACUTE EVENTS THIS SHIFT. CALL LIGHT IN REACH, WILL CONTINUE TO MONITOR AND REPORT TO ONCOMING DAY RN.
[2021-03-22 06:11] LABS: BASOPHILS ABSOLUTE AUTO 0.04 K/mm3 (0.00-0.23); BASOPHILS PERCENT AUTO 1 % (0-2); EOSINOPHILS ABSOLUTE AUTO 0.17 K/mm3 (0.00-0.68); EOSINOPHILS PERCENT AUTO 2 % (0-6); Hematocrit 43.6 % (33.0-51.0); IMMATURE GRAN ABSOLUTE AUTO 0.14 K/mm3 (0.00-0.10); IMMATURE GRAN PERCENT AUTO 2 % (0-1); LYMPHOCYTES ABSOLUTE AUTO 1.27 K/mm3 (0.84-5.20); LYMPHOCYTES PERCENT AUTO 17 % (21-46); MONOCYTES ABSOLUTE AUTO 0.68 K/mm3 (0.16-1.47); MONOCYTES PERCENT AUTO 9 % (4-13); Mean Corpuscular HGB 31.9 pg (26.0-34.0); Mean Corpuscular HGB Conc 32.1 g/dL (31.5-36.5); Mean Corpuscular Volume 99 fL (80-100); Mean Platelet Volume 10.4 fL (9.1-12.4); NEUTROPHILS ABSOLUTE AUTO 5.36 K/mm3 (1.96-9.15); NEUTROPHILS PERCENT AUTO 70 % (41-73); NRBC ABSOLUTE 0.05 K/mm3 (0.00-0.02); NRBC Auto 0.7 /100 WBC (0.0-0.2); Platelet Count 249 K/mm3 (150-400); Red Blood Cell Count 4.39 M/mm3 (3.80-5.20); White Blood Cell Count 7.66 K/mm3 (4.00-11.30)
[2021-03-22 06:54] LABS: Magnesium, Blood 1.9 mg/dL (1.6-2.4)
[2021-03-22 06:55] LABS: Albumin, Blood 2.3 g/dL (3.4-5.0); Anion Gap 13 mmol/L (6-16); Blood Urea Nitrogen 54 mg/dL (8-24); Bun/Creatinine Ratio 17.6 (12.0-20.0); CO2, Blood 15 mmol/L (21-32); Calcium, Blood 8.6 mg/dL (8.5-10.1); Chloride, Blood 112 mmol/L (98-108); Creatinine, Blood 3.07 mg/dL (0.40-1.00); Glomerular Filtration Rate 16 (60-); Glucose, Blood 88 mg/dL (70-99); Phosphorus, Blood 4.9 mg/dL (2.5-4.9); Potassium, Blood 4.2 mmol/L (3.5-5.5); Sodium, Blood 140 mmol/L (136-145)
--- NOTE | 2021-03-22 09:00 | NUR ---
PT PLEASANT COOP A/O. SOME BACK PAIN. WILL MED PER EMAR. H/R IRREG, HX AFIB. PER TELE AFIB AT 126-128. DOES HAVE PACER. LUNGS CLEAR UPPER, FINE CRACKLES BAES. ON 2L O2. RESP EASY, UNLABORED. BT HYP0. LAST BM ONE WEEK. ON BOWEL PROTOCOL. VOIDS GUPTA CATH CLEAR YELLOW FLUID DRAINING INTO BAG. 1 ASST WITH FWW. BED IN LOW POSITION, SONIA LITE IN REACH, CALLS APPROP.
--- NOTE | 2021-03-22 11:49 | NUR ---
Initial Visit Palliative Care Consult for AD/POLST and Goals of Care. Spoke with Dr Cancino yesterday who reports Pt and family may benefit from discussion regarding goals of care. Pt admitted to the hospital for Acute Kidney Injury. Pt's medical history and comorbidities include: Diastolic CHF, Chronic Afib, Recent COVID-19 Infection, Moderate to Severe Tricuspid Regurgitation, HTN, Pre Diabetes, Mild Pulmonary HTN, Asthma, GERD, Shingles, Pacemaker Placement, and Recent T12 Compression Fracture. Pt resting in bed upon arrival. Pt is A&OX4 and C/O pain in her back. Pt does not rate pain at this time. She reports current regimen intermittently helps with pain. Pt appears moderately lethargic with slight slurring of speech. Engaged in therapeutic listening as Pt reports living at home with her . Pt reports suffers from Dementia and has required more care over the recent pass. Pt reports her daughter Micheline and daughter in law Lizzette come and provide assistance when available. Pt reports at baseline having the ability to ambulate with a walker. She states the distance she is able to ambulate has been decreasing and is requiring more frequent rest periods. Listened as Pt reports frustration with her decline in her health and frequent hospital stays. She states "It's starting to wear on me". Inquired about possibilty of experiencing depression with Pt open to the possibility. Pt reports never being screened for depression. Continued therapeutic listening. Engaged in therapeutic discussion regarding goals of care. Discussed code status. Educated on life sustaining treatments including risk factors, implications, and consequences of CPR. Discussed options of focusing on comfort and quality of life if future hospitalization become no longer part of her goal. Continued therapeutic listening and answered questions. Pt gives this RN verbal permission to call her daughter Micheline to provide update and relay discussions we had. Pt confirms Micheline is healthcare Proxy in the event Pt is unable to make decisions for herself. Pt agreeable for continued Palliative Care visits. Called and spoke with Pt's daughter Micheline. Provided update and relayed our conversation. Offered therapeutic listening. Micheline reports having watch her mother decline over the last couple of years. Micheline reports her mother has lost motivation and does not get up and do things any longer. She states Pt tends to sit in her chair for most of the day. Micheline also reports Pt has not been taking in much fluid lately. Micheline also states her dad (Pt's ) suffers from dementia and has been struggling with Pt not being home. Discussed family considering having a conversation with Pt and learning what Pt's goals and values are. Micheline reports being in agreement and will discuss further with family. Micheline expresses appreciation of call and reports no other concerns at this time. Called and spoke with hospitalist Dr Napoles. Relayed conversation that took place with Pt and daughter Micheline including the possibilty of Pt experiencing depression. Palliative Care will remain available for supportive and therapeutic visits.
--- NOTE | 2021-03-22 14:16 | NUR ---
Spiritual care visit conducted. Patient is lying in bed and alert. Patient tells me that she has recently received pain medication and is still in pain while she waits for it to "kick in." Patient shares about her who, in his dementia, sits by the window and cries in confusion and loneliness waiting for her to return home. Patient says that she will be going to a rehab. facility and is concerned about this will effect her . We discuss patient and her 's support system, resources and sources of meaning and purpose. I also provide therapeutic listening and prayer. Patient responds well and shows signs of reduced stress. Spiritual care will continue to remain available to patient and family.
--- NOTE | 2021-03-22 16:19 | NUR ---
PT PLEASANT TODAY. ADMITS TO FEELING WORN OUT OVERALL. SEVERAL HOSP VISITS SINCE COVID. JUST WORN OUT. PAIN SOME HIGHER TODAY. HAVE REPOSITIONED AND MEDICATED PER EMAR. DID ENCOURAGE HER TO KEEP PUSHING TO EAT. TALKED TO DR AND PALIATIVE CARE TO THIS REGARD. FAMILY IN TODAYL TO VISIT. DR WAS ABLE TO COME SEE HER AND FAMILY WHEN HERE. PT PRESENTLY NAPPING. BED IN LOW POSITION, CALL LITE IN REACH, CALLS APPROP
[2021-03-23 04:47] LABS: Hematocrit 41.6 % (33.0-51.0); Hemoglobin 13.3 g/dL (11.5-16.0); Mean Corpuscular HGB 31.4 pg (26.0-34.0); Mean Corpuscular Volume 98 fL (80-100); Mean Platelet Volume 10.3 fL (9.1-12.4); NRBC ABSOLUTE 0.03 K/mm3 (0.00-0.02); NRBC Auto 0.4 /100 WBC (0.0-0.2); Platelet Count 246 K/mm3 (150-400); RDW Coefficient Variation 16.1 % (11.7-14.2); RDW Standard Deviation 55.9 fL (35.1-46.3); Red Blood Cell Count 4.23 M/mm3 (3.80-5.20); White Blood Cell Count 7.71 K/mm3 (4.00-11.30)
[2021-03-23 05:02] LABS: Albumin, Blood 2.3 g/dL (3.4-5.0); Anion Gap 8 mmol/L (6-16); Blood Urea Nitrogen 54 mg/dL (8-24); Bun/Creatinine Ratio 20.8 (12.0-20.0); CO2, Blood 24 mmol/L (21-32); Calcium, Blood 8.4 mg/dL (8.5-10.1); Chloride, Blood 107 mmol/L (98-108); Glomerular Filtration Rate 19 (60-); Glucose, Blood 162 mg/dL (70-99); Magnesium, Blood 1.9 mg/dL (1.6-2.4); Potassium, Blood 3.7 mmol/L (3.5-5.5); Sodium, Blood 139 mmol/L (136-145)
--- NOTE | 2021-03-23 06:08 | NUR ---
SHIFT SUMMARY LYING IN LOW FOLERS WITH EYES CLOSED, HAS RESTED OFF AND ON. NO SIGNIFICANT CHANGES THIS SHIFT. PIV REMAINS PATENT, FLUSHING WITH EASE. ARM PROPPED ON PILLOW FOR COMFORT AND AID WITH REDUCING DISTAL OCCLUSIONS. DENIES PAIN, DISCOMFORT, OR FURTHER NEEDS AT THIS TIME. SAFETY MEASURES IN PLACE. WILL CONTINUE TO MONITOR AND ADDRESS NEEDS THEY ARISE. WILL GIVE HAND OFF TO ONCOMING SHIFT USING SBAR DURING BEDSIDE REPORT.
--- NOTE | 2021-03-23 08:00 | NUR ---
PT PLEASANT COOP STATES NAUSEA REMAINS ALSO DOES PAIN IN BACK. OFTEN LIGHT EMESIS AFTER LIGHT EATING. DID BETTER YEST BY GIVING ZOFRAN PRIOR TO MEALS. L ARM SWOLLEN THIS AM. EXPECT R/T IV. REPLACED WITH POWERGLIDE THIS AM. H/R IRREG, PER TELE AFIB 110. LUNGS CLEAR TODAY. REAP EASEY, UNLABORED. ON 2L L2. BT HYPO. LAST BM A WEEK. DR AWARE, BOWEL PROTOCOL IN PROCESS. VIODS PER F/CATH, YELLOW FLUID COLLECTIING IN BAG. BED IN LOW POSITION, CALLITE IN REACH, CALLS APPROP
[2021-03-23 12:09] LABS: ANA DIRECT Positive (Negative); ANTI-CENTROMERE B ANTIBODIES <0.2 AI (0.0-0.9); ANTI-DNA (DS) AB QN <1 IU/mL (0-9); ANTI-JO-1 <0.2 AI (0.0-0.9); ANTICHROMATIN ANTIBODIES <0.2 AI (0.0-0.9); ANTIMYELOPEROXIDASE (MPO) ABS <9.0 U/mL (0.0-9.0); ANTIPROTEINASE 3 (PR-3) ABS <3.5 U/mL (0.0-3.5); ANTIRIBOSOMAL P ANTIBODIES <0.2 AI (0.0-0.9); ANTISCLERODERMA-70 ANTIBODIES <0.2 AI (0.0-0.9); ATYPICAL PANCA <1:20 titer (Neg:<1:20); CYTOPLASMIC (C-ANCA) <1:20 titer (Neg:<1:20); PERINUCLEAR (P-ANCA) <1:20 titer (Neg:<1:20); RNP ANTIBODIES 2.9 AI (0.0-0.9); SJOGREN'S ANTI-SS-A <0.2 AI (0.0-0.9); SJOGREN'S ANTI-SS-B <0.2 AI (0.0-0.9); SMITH ANTIBODIES <0.2 AI (0.0-0.9); SMITH/RNP ANTIBODIES <0.2 AI (0.0-0.9)
--- NOTE | 2021-03-23 13:30 | NUR ---
PT HAD PHYSICAL THERAPY. DURING SUCH, PT H/R UP TO 150-160 PER CLINIC SPECIALIST. PT HAD BOWEL MOVEMENT AND GOT WEAK, DID NOT LOOSE CONSCIOUSNESS. WE PUT PT BACK TO BED WITH A SIT TO STAND LIFT. H/R CAME BACK DOWN TO 120'S. CLEANED PT. SHE IS NOW RESTING. BED IN LOW POSITION, CALL LITE IN REACH. CALLS APPROP
--- NOTE | 2021-03-23 13:57 | NUR ---
Pt resting in bed upon arrival. Pt appears uncomfortable with moderate dyspnea noted. Bedside RN Xavi elevates head of bed. Pt complains of pain if head is elevated too much. Ended visit to allow Pt to rest. Pt agreeable for Palliative Care to F/U at a later time when SOB has improved. Spoke with hosptialist Dr Napoles and discussed case. Pt will start anidepressant this evening. Palliative Care will remain available.
[2021-03-23 14:10] LABS: A/G RATIO 0.8 (0.7-1.7); ALBUMIN 2.5 g/dL (2.9-4.4); ALPHA-1-GLOBULIN 0.3 g/dL (0.0-0.4); ALPHA-2-GLOBULIN 0.8 g/dL (0.4-1.0); BETA GLOBULIN 0.8 g/dL (0.7-1.3); GAMMA GLOBULIN 1.3 g/dL (0.4-1.8); GLOBULIN, TOTAL 3.2 g/dL (2.2-3.9); IMMUNOGLOBULIN A, QN, SERUM 327 mg/dL (64-422); IMMUNOGLOBULIN G, QN, SERUM 1268 mg/dL (586-1602); IMMUNOGLOBULIN M, QN, SERUM 53 mg/dL (26-217); M-SPIKE Not Observed g/dL (Not Observed); PROTEIN, TOTAL, SERUM 5.7 g/dL (6.0-8.5)
--- NOTE | 2021-03-23 15:13 | NUR ---
1430 TELE CALLED. [address] NOTIFIED
--- NOTE | 2021-03-23 15:17 | NUR ---
Received call from Bedside RN Xavi reporting family has arrived. Pt resting in bed. Mild dyspnea noted. Pt reports pain in her back and recently received pain medication. Daughter Micheline and Pt's at bedside. Provided update and reviewed plan of care. Offered therapeutic listening and answered questions. Provided gentle education on chronic illnesses. Brief discussion regarding the importance of considering code status. Dr Napoles, Dr Rivero, and medical student arrives. Dr Napoles provides update and answers questions. Pt and family expresses appreciation and report no other concerns at this time. Palliative Care will remain available.
--- NOTE | 2021-03-23 18:17 | NUR ---
PT HAS BEEN QUITE PLEASANT TODAY. PAIN MANAGED WITH AVAIL MEDS. HAS BEEN SOME MORE PAINFUL THAN YEST. HAS HAD SOME SHORT TACHY MOMEMNTS TODAY. DID HAVE 1 6 BEAT RUN OF VTACH. PT HAS PACER. DID GET WEAK DURING PHYS THERAPY TODAY. DID NOT LOSE CONSCIOUSNESS. DID HAVE B/M TODAY. DR SUGGESTS MAYBE VAGAL RESPONSE, PLUS PATIENT QUITE WEAK. IS BARELY EATING, MOSTLY GELETEIN PROTEIN. SOME FOODS. WE ARE MEDICATING WITH ZOFRAN BEFORE MEALS. THIS SEEMS TO HELP SOME. PT JUST PRESENTS QUITE WEAK AND WORN OUT. BED IN LOW POSITOIN, CALL LITE IN REACH, CALLS APPROP
--- NOTE | 2021-03-23 22:33 | NUR ---
PATIENT CONTINUES TO BE VERY SOB DESPITE 02 SATURATIONS IN MID 90'S. RT WAS CALLED TO EVALUATE AND TX AND FELT PATIENT MAY FEEL LESS SOB WITH EITHER CPAP OR BIPAP. ABD IS VERY LARGE AND FIRM AND IS PRESSING IN AREA OF DIAPHRAM REGARDLESS OF POSITIONING MAKING HER SOB EVEN WORSE. AFTER RT APPLIED CPAP AT A PRESSURE OF 8, SHE WAS STILL ABD BREATHING, AND THE PRESSURE WAS INCREASED TO 10. CALL PLACED TO HOSPITALIST.
--- NOTE | 2021-03-23 23:24 | NUR ---
2 VIEW ABD AND 1 VIEW CHEST COMPLETED. PATIENT APPEARS MORE COMFORTABLE. TOLERATING CPAP AT PRESSURE OF 12 WITH 3 LITER BLEED IN.
--- NOTE | 2021-03-24 01:01 | NUR ---
PATIENT PANICKED AND REMOVED CPAP STATING SHE WAS UNABLE TO WEAR. THAT IT "FELT LIKE SUCTION". RT AGAIN WAS CALLED AND HE TRIED TO TALK HER INTO TRYING IT AGAIN IF HE COULD GET A GEL PAD FOR THE BRIDGE OF HER NOSE FOR COMFORT. PATIENT INSISTED ON REMAINING ON 02 INSTEAD. CURRENTLY, SHE IS ON 5L FOR COMFORT WITH CONTINUOUS [address] WILL CONTINUE CLOSE MONITORING.
--- NOTE | 2021-03-24 04:06 | NUR ---
ELMER HAD A DIFFICULT TIME WITH HER BREATHING PREVIOUSLY NOTED THIS EVENING. RT SET UP CPAP FOR HER WHICH (AT 4 LITERS AND PRESSURE OF 12) DID APPEAR TO ALLOW HER TO RELAX AND NOT WORK HARD. AFTER ABOUT 1.5 HOURS, ELMER REMOVED THE CPAP AND REFUSED TO WEAR IT ANY MORE. 02 REMAINED ABOUE 90% WITH EXCEPTION OF VERY BRIEF SLIPS INTO MID 80'S ON 4L NC. SHE STILL APPEARS LABORED EVEN WHEN SLEEPING. ABDOMEN LOOKS LIKE IT IS PUSHING ON DIAPHRAM. BOWEL MEDS REFUSED AT HS. LIKELY DUE TO BAD EXPERIENCE SHE HAD YESTERDAY AFTERNOON.
[2021-03-24 06:08] LABS: BASOPHILS ABSOLUTE AUTO 0.04 K/mm3 (0.00-0.23); BASOPHILS PERCENT AUTO 1 % (0-2); EOSINOPHILS ABSOLUTE AUTO 0.28 K/mm3 (0.00-0.68); EOSINOPHILS PERCENT AUTO 4 % (0-6); Hematocrit 41.3 % (33.0-51.0); Hemoglobin 13.1 g/dL (11.5-16.0); IMMATURE GRAN PERCENT AUTO 1 % (0-1); LYMPHOCYTES ABSOLUTE AUTO 1.38 K/mm3 (0.84-5.20); LYMPHOCYTES PERCENT AUTO 18 % (21-46); MONOCYTES ABSOLUTE AUTO 0.72 K/mm3 (0.16-1.47); MONOCYTES PERCENT AUTO 9 % (4-13); Mean Corpuscular HGB 31.5 pg (26.0-34.0); Mean Corpuscular HGB Conc 31.7 g/dL (31.5-36.5); Mean Corpuscular Volume 99 fL (80-100); Mean Platelet Volume 10.3 fL (9.1-12.4); NEUTROPHILS ABSOLUTE AUTO 5.17 K/mm3 (1.96-9.15); NEUTROPHILS PERCENT AUTO 67 % (41-73); NRBC ABSOLUTE 0.03 K/mm3 (0.00-0.02); NRBC Auto 0.4 /100 WBC (0.0-0.2); Platelet Count 232 K/mm3 (150-400); RDW Coefficient Variation 16.2 % (11.7-14.2); RDW Standard Deviation 57.6 fL (35.1-46.3); Red Blood Cell Count 4.16 M/mm3 (3.80-5.20); White Blood Cell Count 7.69 K/mm3 (4.00-11.30)
[2021-03-24 06:27] LABS: Albumin, Blood 2.2 g/dL (3.4-5.0); Anion Gap 5 mmol/L (6-16); Blood Urea Nitrogen 55 mg/dL (8-24); Bun/Creatinine Ratio 25.1 (12.0-20.0); CO2, Blood 31 mmol/L (21-32); Calcium, Blood 8.5 mg/dL (8.5-10.1); Chloride, Blood 104 mmol/L (98-108); Creatinine, Blood 2.19 mg/dL (0.40-1.00); Glomerular Filtration Rate 23 (60-); Glucose, Blood 131 mg/dL (70-99); Magnesium, Blood 1.8 mg/dL (1.6-2.4); Phosphorus, Blood 3.5 mg/dL (2.5-4.9); Potassium, Blood 3.2 mmol/L (3.5-5.5); Sodium, Blood 140 mmol/L (136-145)
--- NOTE | 2021-03-24 09:00 | NUR ---
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 PT HAVE HISTORY OF COLON AND ENDOMETRIAL CANCER. PT CAME IN BECAUSE OF C/O PAIN ON HER ABDOMEN AREA AND NO OUTPUT ON HER ILEOSTOMY. PT HAVE BILAT IV 20G. PT IS NOW RECEIVING IV FLUIDS CONTINUOSLY. NG TUBE SUCTION INTERMITTENTLY WITH GREEN COLOR MINIMAL AMOUNT OF OUTPUT. PT CAME IN WITH LACTIC ACID OF 2.8; BUT IT WENT DOWN TO 1.5. SHE ALSO CAME IN WITH HIGH BLOOD PRESSURE OF SBP 170'S; HYDRALAZINE PRN ORDERED. PT DENIES ANY PAIN UPON ADMISSION, BUT STATED UNCOMFORTABLE ON HER NOSE BECAUSE OF NG TUBE. WAS AT BEDSIDE THIS AM. PT RECEIVED ZOFRAN AT ED; NAUSE AND VOMITING IMPROVING. DR DUFFY WAS CONSULTED; NO SURGICAL INTERVENTIONS PER . PT ORIENTED IN THE ROOM AND BED IS IN THE LOWEST POSITION. CALL LIGHT WITHIN REACH
--- NOTE | 2021-03-24 17:33 | NUR ---
SHIFT SUMMARY PT AOX3; CALLS APPROPRIATELY. PT PAINFUL ON HER LOWER BACK; LIDOCAINE PATCH PLACED AND SCHEDULED TRAMADOL GIVEN. DISCUSSED WITH THE DR ABOUT GUPTA CATHETER; WILL TRY TO TAKE IT OUT TOMORROW BEFORE SNF TRANSFER ON FRIDAY PER DR. BED IS IN THE LOWEST POSITION AND CALL LIGHT WITHIN REACH
--- NOTE | 2021-03-24 22:46 | NUR ---
Spoke with patients daughter Micheline this evening regarding her mother's comfort. Micheline expressed a concern about how her mom was getting sicker and needing hospitalization so frequently since January. Her number is [phone]. She was concerned about Whether Shantal will be able to recover and eventually be able to come home.
--- NOTE | 2021-03-25 05:19 | NUR ---
PATIENT SLEPT WELL OVERNIGHT AND WORE THE CPAP FOR OVER 8 HOURS. MINIMAL COMPLAINTS OF BACK PAIN AT AREA OF FRACTURE WERE RESOLVED WITH HS TRAMADOL. AT 0445 THIS MORNING, ELMER HAD 8 BEAT RUN OF V TACH IN 160'S. SHE HAPPENED TO BE AWAKE AT THE TIME AND WAS NOT AWARE OF ANY CHEST PRESSURE/PAIN OR PALPITATIONS. MD NOTIFIED AND POTASSIUM/MAGNESIUM WERE ADDED TO THIS MORNINGS LABS. WILL MONITOR FOR RESULTS AFTER RECEIVED BY LAB
[2021-03-25 06:02] LABS: Hematocrit 36.3 % (33.0-51.0); Hemoglobin 11.6 g/dL (11.5-16.0)
[2021-03-25 07:00] LABS: Anion Gap 5 mmol/L (6-16); Blood Urea Nitrogen 47 mg/dL (8-24); Bun/Creatinine Ratio 27.2 (12.0-20.0); CO2, Blood 30 mmol/L (21-32); Calcium, Blood 8.6 mg/dL (8.5-10.1); Chloride, Blood 108 mmol/L (98-108); Creatinine, Blood 1.73 mg/dL (0.40-1.00); Glomerular Filtration Rate 30 (60-); Glucose, Blood 102 mg/dL (70-99); Magnesium, Blood 1.6 mg/dL (1.6-2.4); Potassium, Blood 3.8 mmol/L (3.5-5.5); Sodium, Blood 143 mmol/L (136-145)
--- NOTE | 2021-03-25 10:07 | NUR ---
PT ALERT AND ORIENTED X3-4. FORGETFUL AT TIMES. ON 4 L O2 SATING ABOVE 94%. SOB WITH LONG CONVERSATION AND MOVING IN BED. TELE SHOWING AFIB WITH PACED BEATS AND HR IN THE 70'S. VITAL SIGNS STABLE. GUPTA CATH IN PLACE DRAINING CLEAR YELLOW URINE TO GRAVITY. PT COMPLAINS OF LOWER BACK PAIN, MEDICATED PER EMAR AND LIDOCAINE PATCH APPLIED. NS RUNNING AT 50 ML/HR. RIGHT UPPER ARM POWERGLIDE. WEAKNESS OVERALL. 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 LEFT PUPIL ROUND AND REACTIVE TO LIGHT. 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 ACHS. Q2 TURNING AND NEEDED. CALL LIGHT IN REACH. WILL CONTINUE TO MONITOR.
--- NOTE | 2021-03-25 18:18 | NUR ---
SHIFT SUMMARY: NO ACUTE CHANGES OVER SHIFT. PT REMAINS STABLE. VITAL SIGNS STABLE. ABLE TO TIRTRATE O2 DOWN TO BASELINE. PT ON 2 L O2 SATING MID TO LOW 90'S. EATING WELL. COMPLAINS OF NAUSEA. PROVIDED ZOFRAN PRIOR TO DINNER WITH GOOD RELIEF. PT DOES BEST WHEN ZOFRAN IS ADMINISTERED 30 MIN PRIOR TO MEAL TO RELIEVE THE CHRONIC NAUSEA. FLUIDS INFUSING. DAUGHTER AND IN TO VISIT TODAY. SEE PREVIOUS NOTE FOR MORE UPDATES. CALL LIGHT IN REACH. WILL CONTINUE TO MONITOR.
--- NOTE | 2021-03-26 04:00 | NUR ---
PATIENT SLEPT WELL AFTER CPAP WAS PLACED AT HS. ELMER CALLED THIS RN TO STATE THAT SHE WAS AGAIN FEELING SOB. 02 WAS INCREASED FROM 2 LITERS TO 3, AND RT WAS CALLED FOR TREATMENT. PATIENT REQUESTED CPAP TO SLEEP WHICH WAS PLACED AFTER RESP TX. HOPING SHE WOULD BE ABLE TO BE FIT WITH AN APPROPRIATE MASK AND CPAP PRIOR TO DISCHARGE. NO OTHER CHANGES NOTED OVERNIGHT
[2021-03-26 09:07] LABS: Hemoglobin 14.3 g/dL (11.5-16.0)
[2021-03-26 09:30] LABS: Albumin, Blood 2.3 g/dL (3.4-5.0); Anion Gap 4 mmol/L (6-16); Blood Urea Nitrogen 43 mg/dL (8-24); Bun/Creatinine Ratio 27.4 (12.0-20.0); CO2, Blood 32 mmol/L (21-32); Calcium, Blood 8.6 mg/dL (8.5-10.1); Chloride, Blood 107 mmol/L (98-108); Creatinine, Blood 1.57 mg/dL (0.40-1.00); Glomerular Filtration Rate 34 (60-); Glucose, Blood 97 mg/dL (70-99); Magnesium, Blood 1.7 mg/dL (1.6-2.4); Phosphorus, Blood 2.7 mg/dL (2.5-4.9); Potassium, Blood 3.6 mmol/L (3.5-5.5); Sodium, Blood 143 mmol/L (136-145)
[2021-03-26 10:08] LABS: M-SPIKE, % Not Observed % (Not Observed); PROTEIN,TOTAL,URINE 72.5 mg/dL (Not Estab.)
--- NOTE | 2021-03-26 12:38 | NUR ---
DC SUMMARY PT AxOx4. PLEASANT AND COOPERATIVE WITH CARE. PT DC'ING TO [facility] TODAY. REPORT CALLED TO WILFRID. PT BREATHING WITHOUT DIFFICULTY ON 2L O2 VIA NC. GUPTA DC'D APPROX 1100. NO SPONTANEOUS VOID PRIOR TO DC. MEDICATED FOR BACK PAIN x1. PER PNEUMATIC TOOL OPERATOR, TELE AT AFIB 109. PT DECLINED STOOL SOFTNERS TODAY. VITALS REVIEWED. PT SAFELY ESCORTED OUT WITH WC TRANSFER WITH [facility]. PT LEFT WITH BACK BRACE ON, AND PACKET GIVEN TO TRANSPORTER WITH HARD COPY RX INSIDE.
[2021-03-27 08:10] LABS: ANTIGLOMERULAR BM AB 3 units (0-20)
== END 2021-03-26 12:38 | DRG 682 ==
LOC: ER 10:17 → MEDS 13:51 → ENPENDDIS 03-26 10:47 → MEDS 03-26 12:38
PROVIDERS: Emergency Medicine; Family Medicine; Internal Medicine Nephrology; Student in an Organized Health Care Education/Training Program; ADMIT Internal Medicine
DX: N17.9 Acute kidney failure, unspecified (principal); I50.33 Acute on chronic diastolic (congestive) heart failure; M80.08XA Age-related osteoporosis with current pathological fracture, vertebra(e), initial encounter for fracture; I13.0 Hypertensive heart and chronic kidney disease with heart failure and stage 1 through stage 4 chronic kidney disease, or unspecified chronic kidney disease; I48.20 Chronic atrial fibrillation, unspecified; J84.9 Interstitial pulmonary disease, unspecified; E87.1 Hypo-osmolality and hyponatremia; E87.2 Acidosis; I47.2 Ventricular tachycardia; R18.8 Other ascites; N12 Tubulo-interstitial nephritis, not specified as acute or chronic; J45.909 Unspecified asthma, uncomplicated; D72.829 Elevated white blood cell count, unspecified; N28.1 Cyst of kidney, acquired; E88.09 Other disorders of plasma-protein metabolism, not elsewhere classified; N18.9 Chronic kidney disease, unspecified; R31.29 Other microscopic hematuria; I27.20 Pulmonary hypertension, unspecified; I07.1 Rheumatic tricuspid insufficiency; E11.22 Type 2 diabetes mellitus with diabetic chronic kidney disease; K21.9 Gastro-esophageal reflux disease without esophagitis; E86.0 Dehydration; T50.2X5A Adverse effect of carbonic-anhydrase inhibitors, benzothiadiazides and other diuretics, initial encounter; E86.9 Volume depletion, unspecified; E66.9 Obesity, unspecified; E87.6 Hypokalemia; B96.20 Unspecified Escherichia coli [E. coli] as the cause of diseases classified elsewhere; K44.9 Diaphragmatic hernia without obstruction or gangrene; K59.00 Constipation, unspecified; E83.39 Other disorders of phosphorus metabolism; F32.9 Major depressive disorder, single episode, unspecified; K57.30 Diverticulosis of large intestine without perforation or abscess without bleeding; G47.33 Obstructive sleep apnea (adult) (pediatric); Z68.36 Body mass index [BMI] 36.0-36.9, adult; Z88.8 Allergy status to other drugs, medicaments and biological substances; Z88.0 Allergy status to penicillin; Z88.1 Allergy status to other antibiotic agents; Z91.041 Radiographic dye allergy status; Z90.49 Acquired absence of other specified parts of digestive tract; Z95.0 Presence of cardiac pacemaker; Z98.890 Other specified postprocedural states; Z79.01 Long term (current) use of anticoagulants; Z79.899 Other long term (current) drug therapy; Z79.84 Long term (current) use of oral hypoglycemic drugs; Z86.16 Personal history of COVID-19; Z87.11 Personal history of peptic ulcer disease; Z87.442 Personal history of urinary calculi
CPT/HCPCS: 36415; 51702; 71045; 74018; 74176; 76700; 80048; 80053; 80069; 81001; 81050; 82248; 82550; 82784; 82947; 83516; 83520; 83690; 83735; 84100; 84132; 84156; 84165; 84166; 84550; 85014; 85018; 85025; 85027; 86038; 86256; 86334; 86335; 87077; 87086; 87186; 94660; 94762; 96374-59; 96375-59; 97110; 97112; 97116; 97161; 97165; 97530; 97530-CQ; 97535; 99285-25; A9270; C1751; J1940; J1956; J2405; J3010; J3480; J7030; J7070

== ENCOUNTER 2021-04-23 00:45 | Day surgery (SDC) | payer MEDICARE, OTHER | END 2021-04-23 22:55 | disposition home or self-care (01) | LOC: WOUND 00:45 | DX: E11.621 Type 2 diabetes mellitus with foot ulcer (principal); L97.522 Non-pressure chronic ulcer of other part of left foot with fat layer exposed; L97.519 Non-pressure chronic ulcer of other part of right foot with unspecified severity; L97.319 Non-pressure chronic ulcer of right ankle with unspecified severity; L97.819 Non-pressure chronic ulcer of other part of right lower leg with unspecified severity; S22.080D Wedge compression fracture of T11-T12 vertebra, subsequent encounter for fracture with routine healing; X58.XXXD Exposure to other specified factors, subsequent encounter; S81.801A Unspecified open wound, right lower leg, initial encounter; S81.802A Unspecified open wound, left lower leg, initial encounter; S80.829A Blister (nonthermal), unspecified lower leg, initial encounter; X58.XXXA Exposure to other specified factors, initial encounter; M62.81 Muscle weakness (generalized); I87.2 Venous insufficiency (chronic) (peripheral); I73.9 Peripheral vascular disease, unspecified; I50.22 Chronic systolic (congestive) heart failure; G47.33 Obstructive sleep apnea (adult) (pediatric) | CPT/HCPCS: A9270; G0463 ==

== ENCOUNTER 2021-04-30 00:26 | Day surgery (SDC) | payer MEDICARE, OTHER | END 2021-04-30 23:06 | disposition home or self-care (01) | LOC: WOUND 00:26 | DX: E11.621 Type 2 diabetes mellitus with foot ulcer (principal); L97.512 Non-pressure chronic ulcer of other part of right foot with fat layer exposed; E11.622 Type 2 diabetes mellitus with other skin ulcer; L97.812 Non-pressure chronic ulcer of other part of right lower leg with fat layer exposed; L97.312 Non-pressure chronic ulcer of right ankle with fat layer exposed; I11.0 Hypertensive heart disease with heart failure; I50.22 Chronic systolic (congestive) heart failure; I48.91 Unspecified atrial fibrillation; E11.51 Type 2 diabetes mellitus with diabetic peripheral angiopathy without gangrene; M62.81 Muscle weakness (generalized); G47.33 Obstructive sleep apnea (adult) (pediatric); S22.080D Wedge compression fracture of T11-T12 vertebra, subsequent encounter for fracture with routine healing; I87.2 Venous insufficiency (chronic) (peripheral); S81.801D Unspecified open wound, right lower leg, subsequent encounter; S81.802D Unspecified open wound, left lower leg, subsequent encounter; Z86.16 Personal history of COVID-19; Z88.1 Allergy status to other antibiotic agents; Z88.8 Allergy status to other drugs, medicaments and biological substances; Z88.0 Allergy status to penicillin | CPT/HCPCS: A9270; G0463 ==

== ENCOUNTER 2021-05-11 02:01 | Day surgery (SDC) | payer MEDICARE, OTHER | END 2021-05-11 12:00 | disposition home or self-care (01) | LOC: WOUND 02:01 | DX: S22.080D Wedge compression fracture of T11-T12 vertebra, subsequent encounter for fracture with routine healing (principal); S81.801D Unspecified open wound, right lower leg, subsequent encounter; S81.802D Unspecified open wound, left lower leg, subsequent encounter; X58.XXXD Exposure to other specified factors, subsequent encounter; E11.621 Type 2 diabetes mellitus with foot ulcer; I50.22 Chronic systolic (congestive) heart failure; M62.81 Muscle weakness (generalized); I87.2 Venous insufficiency (chronic) (peripheral); I73.9 Peripheral vascular disease, unspecified; G47.33 Obstructive sleep apnea (adult) (pediatric) | CPT/HCPCS: A9270; G0463 ==

== ENCOUNTER 2021-05-28 07:00 | Day surgery (SDC) | payer MEDICARE, OTHER | END 2021-05-28 23:00 | disposition home or self-care (01) | LOC: WOUND 07:00 | DX: E11.621 Type 2 diabetes mellitus with foot ulcer (principal); L97.519 Non-pressure chronic ulcer of other part of right foot with unspecified severity; L97.529 Non-pressure chronic ulcer of other part of left foot with unspecified severity; L97.818 Non-pressure chronic ulcer of other part of right lower leg with other specified severity; L97.319 Non-pressure chronic ulcer of right ankle with unspecified severity; S81.801D Unspecified open wound, right lower leg, subsequent encounter; S81.802D Unspecified open wound, left lower leg, subsequent encounter; S22.080D Wedge compression fracture of T11-T12 vertebra, subsequent encounter for fracture with routine healing; X58.XXXD Exposure to other specified factors, subsequent encounter; M62.81 Muscle weakness (generalized); I87.2 Venous insufficiency (chronic) (peripheral); I73.9 Peripheral vascular disease, unspecified; I11.0 Hypertensive heart disease with heart failure; I50.22 Chronic systolic (congestive) heart failure; G47.33 Obstructive sleep apnea (adult) (pediatric); I48.91 Unspecified atrial fibrillation; Z86.16 Personal history of COVID-19 | CPT/HCPCS: G0463 ==

== ENCOUNTER 2021-06-12 06:26 | Day surgery (SDC) | payer MEDICARE, OTHER | END 2021-06-12 22:47 | disposition home or self-care (01) | LOC: WOUND 06:26 | DX: E11.621 Type 2 diabetes mellitus with foot ulcer (principal); L97.529 Non-pressure chronic ulcer of other part of left foot with unspecified severity; L89.322 Pressure ulcer of left buttock, stage 2; L89.312 Pressure ulcer of right buttock, stage 2; S22.080D Wedge compression fracture of T11-T12 vertebra, subsequent encounter for fracture with routine healing; X58.XXXD Exposure to other specified factors, subsequent encounter; M62.81 Muscle weakness (generalized); I87.2 Venous insufficiency (chronic) (peripheral); I73.9 Peripheral vascular disease, unspecified; Z88.1 Allergy status to other antibiotic agents; Z88.0 Allergy status to penicillin; Z88.8 Allergy status to other drugs, medicaments and biological substances | CPT/HCPCS: A9270 ==

== ENCOUNTER 2021-06-19 05:02 | Day surgery (SDC) | payer MEDICARE, OTHER | END 2021-06-19 22:47 | disposition home or self-care (01) | LOC: WOUND 05:02 | DX: L89.322 Pressure ulcer of left buttock, stage 2 (principal); L89.312 Pressure ulcer of right buttock, stage 2; S22.080D Wedge compression fracture of T11-T12 vertebra, subsequent encounter for fracture with routine healing; X58.XXXD Exposure to other specified factors, subsequent encounter; E11.621 Type 2 diabetes mellitus with foot ulcer; I87.2 Venous insufficiency (chronic) (peripheral); E11.51 Type 2 diabetes mellitus with diabetic peripheral angiopathy without gangrene; M62.81 Muscle weakness (generalized) | CPT/HCPCS: A9270; G0463 ==

== ENCOUNTER 2021-07-03 02:13 | Day surgery (SDC) | payer MEDICARE, OTHER | END 2021-07-03 23:00 | disposition home or self-care (01) | LOC: WOUND 02:13 | DX: L89.312 Pressure ulcer of right buttock, stage 2 (principal); L89.322 Pressure ulcer of left buttock, stage 2; S22.080D Wedge compression fracture of T11-T12 vertebra, subsequent encounter for fracture with routine healing; X58.XXXD Exposure to other specified factors, subsequent encounter; E11.621 Type 2 diabetes mellitus with foot ulcer; M62.81 Muscle weakness (generalized); I87.2 Venous insufficiency (chronic) (peripheral); E11.51 Type 2 diabetes mellitus with diabetic peripheral angiopathy without gangrene | CPT/HCPCS: G0463 ==

== ENCOUNTER 2021-07-17 01:56 | Day surgery (SDC) | payer MEDICARE, OTHER | END 2021-07-17 22:58 | disposition home or self-care (01) | LOC: WOUND 01:56 | DX: Z09 Encounter for follow-up examination after completed treatment for conditions other than malignant neoplasm (principal); L89.323 Pressure ulcer of left buttock, stage 3; E11.621 Type 2 diabetes mellitus with foot ulcer; L97.519 Non-pressure chronic ulcer of other part of right foot with unspecified severity; L97.529 Non-pressure chronic ulcer of other part of left foot with unspecified severity; E11.51 Type 2 diabetes mellitus with diabetic peripheral angiopathy without gangrene; I87.2 Venous insufficiency (chronic) (peripheral); S22.080D Wedge compression fracture of T11-T12 vertebra, subsequent encounter for fracture with routine healing; X58.XXXD Exposure to other specified factors, subsequent encounter; M62.81 Muscle weakness (generalized); I11.0 Hypertensive heart disease with heart failure; I50.9 Heart failure, unspecified; Z88.1 Allergy status to other antibiotic agents; Z88.0 Allergy status to penicillin; Z88.8 Allergy status to other drugs, medicaments and biological substances | CPT/HCPCS: G0463 ==

== ENCOUNTER 2021-08-16 07:37 | Emergency (ER) | payer MEDICARE, OTHER ==
[~2021-08-16] VITALS: Ht 162.6 cm; Wt 77.1 kg
== END 2021-08-16 09:46 | disposition home or self-care (01) ==
LOC: ER 07:37
DX: R04.0 Epistaxis (principal); I48.91 Unspecified atrial fibrillation; I11.0 Hypertensive heart disease with heart failure; I50.32 Chronic diastolic (congestive) heart failure; J45.909 Unspecified asthma, uncomplicated; K21.9 Gastro-esophageal reflux disease without esophagitis; Z79.01 Long term (current) use of anticoagulants; Z88.0 Allergy status to penicillin; Z88.1 Allergy status to other antibiotic agents; Z88.8 Allergy status to other drugs, medicaments and biological substances; Z79.899 Other long term (current) drug therapy; Z79.84 Long term (current) use of oral hypoglycemic drugs
CPT/HCPCS: 30903; 99283-25

== ENCOUNTER 2021-08-17 11:45 | Emergency (ER) | payer MEDICARE, OTHER ==
[~2021-08-17] VITALS: Ht 162.6 cm; Wt 74.8 kg
== END 2021-08-17 12:44 | disposition home or self-care (01) ==
LOC: ER 11:45
DX: Z48.00 Encounter for change or removal of nonsurgical wound dressing (principal); I48.91 Unspecified atrial fibrillation; J45.909 Unspecified asthma, uncomplicated; I13.0 Hypertensive heart and chronic kidney disease with heart failure and stage 1 through stage 4 chronic kidney disease, or unspecified chronic kidney disease; N18.9 Chronic kidney disease, unspecified; I50.32 Chronic diastolic (congestive) heart failure; K21.9 Gastro-esophageal reflux disease without esophagitis; Z88.0 Allergy status to penicillin; Z88.1 Allergy status to other antibiotic agents; Z88.8 Allergy status to other drugs, medicaments and biological substances; Z91.048 Other nonmedicinal substance allergy status; Z79.899 Other long term (current) drug therapy; Z79.84 Long term (current) use of oral hypoglycemic drugs
CPT/HCPCS: 99282

== ENCOUNTER 2021-08-20 11:38 | Emergency (ER) | payer MEDICARE, OTHER ==
[~2021-08-20] VITALS: Ht 162.6 cm; Wt 74.8 kg
== END 2021-08-20 14:54 | disposition home or self-care (01) ==
LOC: ER 11:38
DX: R04.0 Epistaxis (principal); I13.0 Hypertensive heart and chronic kidney disease with heart failure and stage 1 through stage 4 chronic kidney disease, or unspecified chronic kidney disease; N18.9 Chronic kidney disease, unspecified; I50.32 Chronic diastolic (congestive) heart failure; K21.9 Gastro-esophageal reflux disease without esophagitis; I48.91 Unspecified atrial fibrillation; J45.909 Unspecified asthma, uncomplicated; Z88.8 Allergy status to other drugs, medicaments and biological substances; Z88.1 Allergy status to other antibiotic agents; Z88.0 Allergy status to penicillin; Z91.048 Other nonmedicinal substance allergy status; Z79.899 Other long term (current) drug therapy; Z79.84 Long term (current) use of oral hypoglycemic drugs
CPT/HCPCS: 30901; 99284

== ENCOUNTER 2022-12-07 17:17 | Emergency (ER) | payer MEDICARE, OTHER ==
[~2022-12-07] VITALS: Ht 162.6 cm; Wt 72.6 kg
[~2022-12-07 17:17] MED LIST changes: +FURO20 PO
[2022-12-07 18:08] LABS: BASOPHILS ABSOLUTE AUTO 0.07 K/mm3 (0.00-0.23); BASOPHILS PERCENT AUTO 1 % (0-2); EOSINOPHILS PERCENT AUTO 3 % (0-6); Hematocrit 51.7 % (33.0-51.0); Hemoglobin 17.1 g/dL (11.5-16.0); IMMATURE GRAN ABSOLUTE AUTO 0.02 K/mm3 (0.00-0.10); IMMATURE GRAN PERCENT AUTO 0 % (0-1); LYMPHOCYTES PERCENT AUTO 25 % (21-46); MONOCYTES ABSOLUTE AUTO 0.73 K/mm3 (0.16-1.47); MONOCYTES PERCENT AUTO 8 % (4-13); Mean Corpuscular HGB 31.4 pg (26.0-34.0); Mean Corpuscular HGB Conc 33.1 g/dL (31.5-36.5); Mean Corpuscular Volume 95 fL (80-100); NEUTROPHILS ABSOLUTE AUTO 5.66 K/mm3 (1.96-9.15); NEUTROPHILS PERCENT AUTO 63 % (41-73); Platelet Count 231 K/mm3 (150-400); RDW Standard Deviation 48.3 fL (35.1-46.3); Red Blood Cell Count 5.45 M/mm3 (3.80-5.20); White Blood Cell Count 8.98 K/mm3 (4.00-11.30)
[2022-12-07 18:29] LABS: Albumin, Blood 3.5 g/dL (3.4-5.0); Albumin/Globulin Ratio 0.8 (0.8-1.8); Bilirubin, Total 0.6 mg/dL (0.1-1.0); Calcium, Blood 9.7 mg/dL (8.5-10.1); Creatinine, Blood 0.87 mg/dL (0.40-1.00); Globulin, Blood 4.6 g/dL (2.2-4.0); Potassium, Blood 4.4 mmol/L (3.5-5.5); Total Protein, Blood 8.1 g/dL (6.4-8.2)
[2022-12-07 18:43] LABS: Influenza A, PCR NEGATIVE (NEGATIVE); Influenza B, PCR NEGATIVE (NEGATIVE); Resp Syncytial Virus, PCR NEGATIVE (NEGATIVE); SARS-Cov-2 (COVID-19) PCR, MMC NEGATIVE (NEGATIVE)
[2022-12-07] MEDS ORDERED: FURO20 PO (20:38)
[2022-12-07] MEDS ORDERED: METO50ER PO (20:38)
== END 2022-12-07 21:00 | disposition home or self-care (01) ==
LOC: ER 17:17
PROVIDERS: Student in an Organized Health Care Education/Training Program
DX: I48.91 Unspecified atrial fibrillation (principal); I13.0 Hypertensive heart and chronic kidney disease with heart failure and stage 1 through stage 4 chronic kidney disease, or unspecified chronic kidney disease; N18.9 Chronic kidney disease, unspecified; I50.32 Chronic diastolic (congestive) heart failure; K21.9 Gastro-esophageal reflux disease without esophagitis; Z95.0 Presence of cardiac pacemaker; Z20.822 Contact with and (suspected) exposure to COVID-19; Z79.899 Other long term (current) drug therapy; Z79.02 Long term (current) use of antithrombotics/antiplatelets; Z88.0 Allergy status to penicillin; Z88.8 Allergy status to other drugs, medicaments and biological substances; Z91.040 Latex allergy status
CPT/HCPCS: 0241U; 36415; 71046; 80053; 83880; 84484; 85025; 93005; 93010; A9270; J1940

== ENCOUNTER → 2023-07-23 | Outpatient (CLI) | payer MEDICARE, OTHER | END | disposition home or self-care (01) | LOC: LAB SHORT 14:47 → PLD 14:47 | DX: L72.0 Epidermal cyst (principal) | CPT/HCPCS: 88304 ==

== ENCOUNTER 2023-11-29 08:53 | Observation (INO) | payer MEDICARE, OTHER ==
[~2023-11-29] VITALS: Ht 154.9 cm; Wt 76.7 kg
[2023-11-29] MEDS ORDERED: Ondansetron HCl 2 MG / ML 2ML Vial IV ONE (09:30)
[2023-11-29] MEDS ORDERED: Lactated Ringer's 1,000 ML IV ONE (09:30)
[2023-11-29] MEDS ORDERED: Pantoprazole Sodium 40 MG Injection IV ONE (09:30)
[2023-11-29 09:43] LABS: BASOPHILS ABSOLUTE AUTO 0.07 K/mm3 (0.00-0.23); BASOPHILS PERCENT AUTO 1 % (0-2); EOSINOPHILS ABSOLUTE AUTO 0.01 K/mm3 (0.00-0.68); EOSINOPHILS PERCENT AUTO 0 % (0-6); Hematocrit 47.4 % (33.0-51.0); Hemoglobin 15.6 g/dL (11.5-16.0); IMMATURE GRAN ABSOLUTE AUTO 0.07 K/mm3 (0.00-0.10); IMMATURE GRAN PERCENT AUTO 1 % (0-1); LYMPHOCYTES ABSOLUTE AUTO 1.58 K/mm3 (0.84-5.20); LYMPHOCYTES PERCENT AUTO 11 % (21-46); MONOCYTES PERCENT AUTO 5 % (4-13); Mean Corpuscular HGB 32.6 pg (26.0-34.0); Mean Corpuscular HGB Conc 32.9 g/dL (31.5-36.5); Mean Corpuscular Volume 99 fL (80-100); Mean Platelet Volume 10.8 fL (9.1-12.4); NEUTROPHILS ABSOLUTE AUTO 11.57 K/mm3 (1.96-9.15); NEUTROPHILS PERCENT AUTO 83 % (41-73); Platelet Count 227 K/mm3 (150-400); RDW Coefficient Variation 14.7 % (11.7-14.2); RDW Standard Deviation 54.1 fL (35.1-46.3); Red Blood Cell Count 4.78 M/mm3 (3.80-5.20)
[2023-11-29] MEDS ORDERED: Ondansetron 4 MG SoluTab MM ONE (09:45)
[2023-11-29 10:08] LABS: Albumin, Blood 3.7 g/dL (3.4-5.0); Albumin/Globulin Ratio 0.9 (0.8-1.8); Bilirubin, Direct 0.2 mg/dL (0.0-0.3); Bilirubin, Indirect 0.4 mg/dL (0.1-0.7); Bilirubin, Total 0.6 mg/dL (0.1-1.0); Bun/Creatinine Ratio 30.2 (12.0-20.0); Calcium, Blood 10.1 mg/dL (8.5-10.1); Creatinine, Blood 1.72 mg/dL (0.40-1.00); Globulin, Blood 4.2 g/dL (2.2-4.0); Magnesium, Blood 2.7 mg/dL (1.6-2.4); Potassium, Blood 4.6 mmol/L (3.5-5.5); Total Protein, Blood 7.9 g/dL (6.4-8.2)
[2023-11-29] MEDS ORDERED: DiphenhydrAMINE HCl 50 MG/ML 1ML Vial IV ONE (11:05)
[2023-11-29] MEDS ORDERED: MethylPREDNISolone Sod Succ 125 MG Vial IV ONE (11:05)
[2023-11-29] MEDS ORDERED: FLU VACC QS2023-24(6MOS UP)/PF 60 MCG/0.5 ML SYRINGE IM SCH (14:15)
[2023-11-29] MEDS ORDERED: Ventolin/Proventil INH (14:28)
[2023-11-29] MEDS ORDERED: JARDIANCE10 MG PO (14:29)
[2023-11-29] MEDS ORDERED: MIRTAZAPINE7.5 M1 PO (14:30)
[2023-11-29] MEDS ORDERED: ALDACTONE25 MG PO (14:31)
[2023-11-29] MEDS ORDERED: TORS10 PO (14:32)
[2023-11-29] MEDS ORDERED: Omeprazole 20 MG CapCR PO SCH ×2 (16:30)
[2023-11-29] MEDS ORDERED: Albuterol HFA200 ACT/6.7 GM INH INH PRN (16:40)
[2023-11-29 17:20] VITALS: BP 117/81
[2023-11-29] MEDS ORDERED: SOAANZ20 M3 PO (17:24)
[2023-11-29] MEDS ORDERED: Polyethylene Glycol 3350 17 gm PO PRN (18:50)
[2023-11-29 20:18] VITALS: BP 79/60
[2023-11-29] MEDS ORDERED: Mirtazapine 15 MG Tab PO SCH ×2 (21:00)
--- NOTE | 2023-11-30 03:25 | NUR ---
PREPRESS TECHNICIAN SUMMARY BP LOW, OTHERWISE VS WNL. ASYMPTOMATIC. NO REPORTED HEMOPTYSIS OR BLOODY STOOLS THIS SHIFT. ALERT AND ORIENTED X 3-4. HAS BEEN RESTING QUIETLY WITH FEW INTERRUPTIONS THIS SHIFT. CALL LIGHT IN REACH. RAILS UP X 2 FOR SAFETY. WILL CONTINUE TO MONITOR.
[2023-11-30 04:04] VITALS: BP 112/74
[2023-11-30 04:32] LABS: BASOPHILS ABSOLUTE AUTO 0.01 K/mm3 (0.00-0.23); BASOPHILS PERCENT AUTO 0 % (0-2); EOSINOPHILS PERCENT AUTO 0 % (0-6); Hematocrit 36.6 % (33.0-51.0); Hemoglobin 12.2 g/dL (11.5-16.0); IMMATURE GRAN ABSOLUTE AUTO 0.03 K/mm3 (0.00-0.10); IMMATURE GRAN PERCENT AUTO 0 % (0-1); LYMPHOCYTES ABSOLUTE AUTO 1.85 K/mm3 (0.84-5.20); LYMPHOCYTES PERCENT AUTO 20 % (21-46); MONOCYTES ABSOLUTE AUTO 0.51 K/mm3 (0.16-1.47); MONOCYTES PERCENT AUTO 6 % (4-13); Mean Corpuscular HGB 32.7 pg (26.0-34.0); Mean Corpuscular HGB Conc 33.3 g/dL (31.5-36.5); Mean Corpuscular Volume 98 fL (80-100); Mean Platelet Volume 11.1 fL (9.1-12.4); NEUTROPHILS ABSOLUTE AUTO 6.83 K/mm3 (1.96-9.15); NEUTROPHILS PERCENT AUTO 74 % (41-73); Platelet Count 178 K/mm3 (150-400); RDW Coefficient Variation 14.8 % (11.7-14.2); RDW Standard Deviation 53.1 fL (35.1-46.3); Red Blood Cell Count 3.73 M/mm3 (3.80-5.20); White Blood Cell Count 9.23 K/mm3 (4.00-11.30)
[2023-11-30 04:57] LABS: Albumin, Blood 3.1 g/dL (3.4-5.0); Albumin/Globulin Ratio 0.9 (0.8-1.8); Bilirubin, Total 0.6 mg/dL (0.1-1.0); Bun/Creatinine Ratio 31.9 (12.0-20.0); Calcium, Blood 9.6 mg/dL (8.5-10.1); Creatinine, Blood 1.44 mg/dL (0.40-1.00); Globulin, Blood 3.5 g/dL (2.2-4.0); Magnesium, Blood 2.6 mg/dL (1.6-2.4); Potassium, Blood 4.4 mmol/L (3.5-5.5); Total Protein, Blood 6.6 g/dL (6.4-8.2)
[2023-11-30 07:50] VITALS: BP 126/92
[2023-11-30] MEDS ORDERED: Multivitamins 1 Tab PO SCH ×2 (09:00)
[2023-11-30] MEDS ORDERED: Spironolactone 25 MG Tab PO SCH ×2 (09:00)
[2023-11-30] MEDS ORDERED: Potassium Chloride 10 Meq Tablet SA PO SCH ×2 (09:00)
[2023-11-30] MEDS ORDERED: Ascorbic Acid 500 MG Tab PO SCH ×2 (09:00)
[2023-11-30] MEDS ORDERED: Metoprolol Succinate 50 MG TABCR PO SCH ×2 (09:00)
[2023-11-30] MEDS ORDERED: Empagliflozin 10 MG TAB PO SCH ×2 (09:00)
[2023-11-30] MEDS ORDERED: Vitamin B Complex 1 EA Softgel PO SCH ×2 (09:00)
[2023-11-30] MEDS ORDERED: Torsemide 20 MG TAB PO SCH ×2 (09:00)
[2023-11-30 12:57] LABS: BASOPHILS ABSOLUTE AUTO 0.04 K/mm3 (0.00-0.23); BASOPHILS PERCENT AUTO 0 % (0-2); EOSINOPHILS ABSOLUTE AUTO 0.01 K/mm3 (0.00-0.68); EOSINOPHILS PERCENT AUTO 0 % (0-6); Hematocrit 38.8 % (33.0-51.0); Hemoglobin 12.8 g/dL (11.5-16.0); IMMATURE GRAN ABSOLUTE AUTO 0.06 K/mm3 (0.00-0.10); IMMATURE GRAN PERCENT AUTO 0 % (0-1); LYMPHOCYTES ABSOLUTE AUTO 2.95 K/mm3 (0.84-5.20); LYMPHOCYTES PERCENT AUTO 21 % (21-46); MONOCYTES ABSOLUTE AUTO 1.21 K/mm3 (0.16-1.47); MONOCYTES PERCENT AUTO 9 % (4-13); Mean Corpuscular HGB 33.1 pg (26.0-34.0); Mean Corpuscular Volume 100 fL (80-100); Mean Platelet Volume 10.7 fL (9.1-12.4); NEUTROPHILS ABSOLUTE AUTO 9.84 K/mm3 (1.96-9.15); NEUTROPHILS PERCENT AUTO 70 % (41-73); Platelet Count 194 K/mm3 (150-400); RDW Coefficient Variation 14.8 % (11.7-14.2); RDW Standard Deviation 54.8 fL (35.1-46.3); Red Blood Cell Count 3.87 M/mm3 (3.80-5.20); White Blood Cell Count 14.11 K/mm3 (4.00-11.30)
[2023-11-30] MEDS ORDERED: METO50ER PO (15:45)
[2023-11-30] MEDS ORDERED: ALBU90OI INH (15:47)
[2023-11-30] MEDS ORDERED: MIRALAX11910 PO (15:51)
== END 2023-11-30 16:31 | disposition home or self-care (01) ==
LOC: ER 08:53 → SURS 08:54 → ER 08:54 → MEDS 08:54
PROVIDERS: Student in an Organized Health Care Education/Training Program; ADMIT Family Medicine
DX: K62.5 Hemorrhage of anus and rectum (principal); I48.91 Unspecified atrial fibrillation; Z79.01 Long term (current) use of anticoagulants; I13.0 Hypertensive heart and chronic kidney disease with heart failure and stage 1 through stage 4 chronic kidney disease, or unspecified chronic kidney disease; N18.9 Chronic kidney disease, unspecified; I50.32 Chronic diastolic (congestive) heart failure; K59.09 Other constipation; K21.9 Gastro-esophageal reflux disease without esophagitis; E66.9 Obesity, unspecified; Z88.0 Allergy status to penicillin; Z91.041 Radiographic dye allergy status; Z68.30 Body mass index [BMI] 30.0-30.9, adult; E11.9 Type 2 diabetes mellitus without complications
CPT/HCPCS: 36415; 74174; 80048; 80053; 80076; 82272; 82947; 83735; 84100; 85025; 86850; 86900; 86901; 93005; 93010; 94760; 96361; 96374-59; 96375-59; 99285-25; A9270; C9113; G0378; J1200; J2930; J7120; Q9967

== ENCOUNTER → 2024-07-22 | Outpatient (CLI) | payer MEDICARE, OTHER ==
[~2024-07-22] MED LIST changes: +ALDACTONE25 MG PO; +ELIQUIS2.5 MG PO; +HYDROCODONE-AC1 EA10 PO; +JARDIANCE10 MG PO; +LIDO700A20 TOP; +MIRALAX11910 PO; +MIRTAZAPINE7.5 M1 PO; +ONDA4 PO; +Percocet 5-3251 EACH PO; +SOAANZ20 M3 PO; +TORS10 PO; +Ventolin/Proventil INH
[2024-07-22 16:22] LABS: BASOPHILS ABSOLUTE AUTO 0.07 K/mm3 (0.00-0.23); BASOPHILS PERCENT AUTO 1 % (0-2); EOSINOPHILS ABSOLUTE AUTO 0.17 K/mm3 (0.00-0.68); EOSINOPHILS PERCENT AUTO 2 % (0-6); Hematocrit 50.6 % (33.0-51.0); Hemoglobin 16.3 g/dL (11.5-16.0); IMMATURE GRAN ABSOLUTE AUTO 0.02 K/mm3 (0.00-0.10); IMMATURE GRAN PERCENT AUTO 0 % (0-1); LYMPHOCYTES ABSOLUTE AUTO 2.09 K/mm3 (0.84-5.20); LYMPHOCYTES PERCENT AUTO 25 % (21-46); MONOCYTES ABSOLUTE AUTO 0.67 K/mm3 (0.16-1.47); MONOCYTES PERCENT AUTO 8 % (4-13); Mean Corpuscular HGB 32.9 pg (26.0-34.0); Mean Corpuscular HGB Conc 32.2 g/dL (31.5-36.5); Mean Corpuscular Volume 102 fL (80-100); Mean Platelet Volume 11.4 fL (9.1-12.4); NEUTROPHILS ABSOLUTE AUTO 5.21 K/mm3 (1.96-9.15); NEUTROPHILS PERCENT AUTO 63 % (41-73); Platelet Count 212 K/mm3 (150-400); RDW Coefficient Variation 16.7 % (11.7-14.2); RDW Standard Deviation 60.9 fL (35.1-46.3); Red Blood Cell Count 4.95 M/mm3 (3.80-5.20); White Blood Cell Count 8.23 K/mm3 (4.00-11.30)
== END ==
LOC: LAB 15:33 → LAB SHORT 15:33
PROVIDERS: Internal Medicine Hematology & Oncology
DX: D75.1 Secondary polycythemia (principal)
CPT/HCPCS: 85025

== ENCOUNTER → 2024-12-14 | Outpatient (CLI) | payer MEDICARE, OTHER ==
[2024-12-14 18:02] LABS: BASOPHILS ABSOLUTE AUTO 0.05 K/mm3 (0.00-0.23); BASOPHILS PERCENT AUTO 1 % (0-2); EOSINOPHILS ABSOLUTE AUTO 0.11 K/mm3 (0.00-0.68); EOSINOPHILS PERCENT AUTO 2 % (0-6); Hematocrit 52.4 % (33.0-51.0); Hemoglobin 17.7 g/dL (11.5-16.0); IMMATURE GRAN ABSOLUTE AUTO 0.05 K/mm3 (0.00-0.10); IMMATURE GRAN PERCENT AUTO 1 % (0-1); LYMPHOCYTES ABSOLUTE AUTO 1.98 K/mm3 (0.84-5.20); LYMPHOCYTES PERCENT AUTO 27 % (21-46); MONOCYTES ABSOLUTE AUTO 0.59 K/mm3 (0.16-1.47); MONOCYTES PERCENT AUTO 8 % (4-13); Mean Corpuscular HGB 31.9 pg (26.0-34.0); Mean Corpuscular HGB Conc 33.8 g/dL (31.5-36.5); Mean Corpuscular Volume 95 fL (80-100); NEUTROPHILS ABSOLUTE AUTO 4.59 K/mm3 (1.96-9.15); NEUTROPHILS PERCENT AUTO 62 % (41-73); RDW Coefficient Variation 15.3 % (11.7-14.2); RDW Standard Deviation 53.8 fL (35.1-46.3); Red Blood Cell Count 5.54 M/mm3 (3.80-5.20); White Blood Cell Count 7.37 K/mm3 (4.00-11.30)
[2024-12-14 18:22] LABS: Mean Platelet Volume 11.1 fL (9.1-12.4); Platelet Count 149 K/mm3 (150-400)
== END | disposition home or self-care (01) ==
LOC: LAB SHORT 15:00
PROVIDERS: Internal Medicine Hematology & Oncology
DX: D75.1 Secondary polycythemia (principal)
CPT/HCPCS: 85025

== ENCOUNTER → 2025-02-01 | Outpatient (CLI) | payer MEDICARE, OTHER ==
[2025-02-01 19:16] LABS: BASOPHILS ABSOLUTE AUTO 0.08 K/mm3 (0.00-0.23); BASOPHILS PERCENT AUTO 1 % (0-2); EOSINOPHILS ABSOLUTE AUTO 0.26 K/mm3 (0.00-0.68); EOSINOPHILS PERCENT AUTO 3 % (0-6); Hematocrit 52.8 % (33.0-51.0); Hemoglobin 17.2 g/dL (11.5-16.0); IMMATURE GRAN ABSOLUTE AUTO 0.03 K/mm3 (0.00-0.10); IMMATURE GRAN PERCENT AUTO 0 % (0-1); LYMPHOCYTES ABSOLUTE AUTO 2.47 K/mm3 (0.84-5.20); LYMPHOCYTES PERCENT AUTO 25 % (21-46); MONOCYTES ABSOLUTE AUTO 0.75 K/mm3 (0.16-1.47); MONOCYTES PERCENT AUTO 8 % (4-13); Mean Corpuscular HGB 31.7 pg (26.0-34.0); Mean Corpuscular HGB Conc 32.6 g/dL (31.5-36.5); Mean Corpuscular Volume 97 fL (80-100); Mean Platelet Volume 11.3 fL (9.1-12.4); NEUTROPHILS ABSOLUTE AUTO 6.18 K/mm3 (1.96-9.15); NEUTROPHILS PERCENT AUTO 63 % (41-73); Platelet Count 210 K/mm3 (150-400); RDW Coefficient Variation 15.5 % (11.7-14.2); RDW Standard Deviation 54.9 fL (35.1-46.3); Red Blood Cell Count 5.42 M/mm3 (3.80-5.20); White Blood Cell Count 9.77 K/mm3 (4.00-11.30)
== END ==
LOC: LAB 17:03 → LAB SHORT 17:03
PROVIDERS: Internal Medicine Hematology & Oncology
DX: D75.1 Secondary polycythemia (principal)
CPT/HCPCS: 85025

== ENCOUNTER → 2025-04-19 | Outpatient (CLI) | payer MEDICARE, OTHER ==
[2025-04-20 20:13] LABS: Percent Saturation 20.1 % (15.0-50.0)
== END ==
LOC: LAB 15:30 → LAB SHORT 15:30
PROVIDERS: Internal Medicine Hematology & Oncology
DX: E61.1 Iron deficiency (principal)
CPT/HCPCS: 82728; 83540; 83550

== ENCOUNTER → 2025-08-02 | Outpatient (CLI) | payer MEDICARE, OTHER ==
[2025-08-02 19:34] LABS: Alanine Aminotransfer (ALT/SGP 21.0 U/L (12-78); Albumin, Blood 3.6 g/dL (3.4-5.0); Albumin/Globulin Ratio 1.1 (0.8-1.8); Anion Gap 9.0 mmol/L (3-11); Aspartate Aminotrans (AST/SGOT 20.0 U/L (12-37); Bilirubin, Total 0.5 mg/dL (0.1-1.0); Blood Urea Nitrogen 23.0 mg/dL (8-24); CO2, Blood 25.0 mmol/L (21-32); Calcium, Blood 9.3 mg/dL (8.5-10.1); Chloride, Blood 109.0 mmol/L (98-108); Creatinine, Blood 1.2 mg/dL (0.40-1.00); Globulin, Blood 3.3 g/dL (2.2-4.0); Glucose, Blood 151.0 mg/dL (70-99); Phosphorus, Blood 3.4 mg/dL (2.5-4.9); Potassium, Blood 4.5 mmol/L (3.5-5.5); Sodium, Blood 138.0 mmol/L (136-145); Total Protein, Blood 6.9 g/dL (6.4-8.2)
== END ==
LOC: LAB SHORT 17:06 → LAB 17:06
PROVIDERS: Internal Medicine Hematology & Oncology
DX: D75.1 Secondary polycythemia (principal)
CPT/HCPCS: 80053; 84100

== ENCOUNTER → 2025-09-15 | Outpatient (CLI) | payer MEDICARE, OTHER ==
[2025-09-15 14:16] LABS: BASOPHILS ABSOLUTE AUTO 0.07 K/mm3 (0.00-0.23); BASOPHILS PERCENT AUTO 1 % (0-2); EOSINOPHILS ABSOLUTE AUTO 0.11 K/mm3 (0.00-0.68); EOSINOPHILS PERCENT AUTO 1 % (0-6); Hematocrit 52.4 % (33.0-51.0); Hemoglobin 16.4 g/dL (11.5-16.0); IMMATURE GRAN ABSOLUTE AUTO 0.04 K/mm3 (0.00-0.10); IMMATURE GRAN PERCENT AUTO 1 % (0-1); LYMPHOCYTES ABSOLUTE AUTO 2.45 K/mm3 (0.84-5.20); LYMPHOCYTES PERCENT AUTO 28 % (21-46); MONOCYTES ABSOLUTE AUTO 0.81 K/mm3 (0.16-1.47); MONOCYTES PERCENT AUTO 9 % (4-13); Mean Corpuscular HGB Conc 31.3 g/dL (31.5-36.5); Mean Corpuscular Volume 93 fL (80-100); NEUTROPHILS ABSOLUTE AUTO 5.22 K/mm3 (1.96-9.15); NEUTROPHILS PERCENT AUTO 60 % (41-73); NRBC ABSOLUTE 0.00 K/mm3 (0.00-0.02); NRBC Auto 0.0 /100 WBC (0.0-0.2); Platelet Count 278 K/mm3 (150-400); RDW Coefficient Variation 18.3 % (11.7-14.2); RDW Standard Deviation 59.3 fL (35.1-46.3)
[2025-09-15 14:32] LABS: Alanine Aminotransfer (ALT/SGP 32.0 U/L (12-78); Albumin, Blood 3.7 g/dL (3.4-5.0); Albumin/Globulin Ratio 1.0 (0.8-1.8); Anion Gap 13.0 mmol/L (3-11); Aspartate Aminotrans (AST/SGOT 30.0 U/L (12-37); Bilirubin, Total 0.6 mg/dL (0.1-1.0); Blood Urea Nitrogen 24.0 mg/dL (8-24); CO2, Blood 24.0 mmol/L (21-32); Calcium, Blood 9.7 mg/dL (8.5-10.1); Chloride, Blood 105.0 mmol/L (98-108); Creatinine, Blood 1.25 mg/dL (0.40-1.00); Globulin, Blood 3.8 g/dL (2.2-4.0); Glucose, Blood 169.0 mg/dL (70-99); Phosphorus, Blood 3.4 mg/dL (2.5-4.9); Potassium, Blood 3.9 mmol/L (3.5-5.5); Sodium, Blood 138.0 mmol/L (136-145); Total Protein, Blood 7.5 g/dL (6.4-8.2)
== END | disposition home or self-care (01) ==
LOC: LAB 13:16 → LAB SHORT 13:16
PROVIDERS: Internal Medicine Hematology & Oncology
DX: D75.1 Secondary polycythemia (principal)
CPT/HCPCS: 80053; 84100; 85025

== ENCOUNTER → 2025-10-05 | Outpatient (CLI) | payer MEDICARE, OTHER ==
[2025-10-05 17:37] LABS: BASOPHILS ABSOLUTE AUTO 0.06 K/mm3 (0.00-0.23); BASOPHILS PERCENT AUTO 0 % (0-2); EOSINOPHILS ABSOLUTE AUTO 0.08 K/mm3 (0.00-0.68); EOSINOPHILS PERCENT AUTO 1 % (0-6); Hematocrit 47.4 % (33.0-51.0); Hemoglobin 14.9 g/dL (11.5-16.0); IMMATURE GRAN ABSOLUTE AUTO 0.11 K/mm3 (0.00-0.10); IMMATURE GRAN PERCENT AUTO 1 % (0-1); LYMPHOCYTES ABSOLUTE AUTO 2.00 K/mm3 (0.84-5.20); LYMPHOCYTES PERCENT AUTO 15 % (21-46); MONOCYTES ABSOLUTE AUTO 1.08 K/mm3 (0.16-1.47); MONOCYTES PERCENT AUTO 8 % (4-13); Mean Corpuscular HGB Conc 31.4 g/dL (31.5-36.5); Mean Corpuscular Volume 93 fL (80-100); NEUTROPHILS ABSOLUTE AUTO 10.20 K/mm3 (1.96-9.15); NEUTROPHILS PERCENT AUTO 75 % (41-73); NRBC ABSOLUTE 0.00 K/mm3 (0.00-0.02); NRBC Auto 0.0 /100 WBC (0.0-0.2); Platelet Count 207 K/mm3 (150-400); RDW Coefficient Variation 19.4 % (11.7-14.2); RDW Standard Deviation 64.0 fL (35.1-46.3)
== END ==
LOC: LAB 15:40 → LAB SHORT 15:40
PROVIDERS: Internal Medicine Hematology & Oncology
DX: D75.1 Secondary polycythemia (principal)
CPT/HCPCS: 85025